=== PATIENT | female | born 1955 | race Caucasian/White ===

== ENCOUNTER 2018-12-05 18:02 | Inpatient (IN) ==
--- NOTE | 2018-12-05 18:41 | XRay Report ---
XR chest 1V portable CLINICAL HISTORY: hypoxia, pleural effusion COMPARISON STUDY: Chest CT October 31, 2018 and chest radiograph November 03, 2018. FINDINGS: Right internal jugular [id number] is in place. There is near complete opacification of t he left hemithorax which has significantly increased since exam of November 03, 2018. There may be min imal aeration of the left upper lobe. There is mild rightward shift of mediastinal structures. There is pulmonary vascular congestion within the right lung. A small right pleural effusion is suspected. There is mild right basilar opacity. IMPRESSION: 1. Near complete opacification of the left hemithorax which has developed since prior exam. Minimal a eration of the left upper lobe. The findings likely reflect a combination of a moderate to large left pleural effusion with left lung compressive atelectasis. 2. Small right pleural effusion. 3. Pulmonary vascular congestion. Electronically signed by: Reynaldo Covarrubias M.D. 12/05/2018 6:39 PM
[2018-12-05] MEDS ORDERED: SODIUM CHLORIDE 0.9% 500 ML IV SCH ×2 (19:00→20:00)
[2018-12-05 19:07] LABS: Basophils # (auto) 0.01 K/uL (0-0.2); Basophils % (auto) 0.1 %; Hematocrit (blood only) 25.5 % (37-47); Hemoglobin 7.5 g/dL (12.0-16.0); Immature Granulocytes # (auto) 0.31 K/uL (0.00-0.02); Immature Granulocytes % (auto) 2.3 %; Lymphocytes # (auto) 0.51 K/uL (1.2-3.4); Lymphocytes % (auto) 3.8 %; Mean Corpuscular Hgb Conc 29.4 g/dL (32-36); Mean Corpuscular Volume 85.3 fL (80-100); Mean Platelet Volume 8.7 fL (7.4-10.4); Monocytes # (auto) 0.48 K/uL (0.11-0.59); Monocytes % (auto) 3.6 %; Neutrophils # (auto) 12.08 K/uL (1.4-6.5); Neutrophils % (auto) 90.2 %; Nucleated RBC # (auto) 0.02 K/uL (0-0); Nucleated RBC % (auto) 0.1 %; Platelet Count 634 K/uL (130-400); RDW Coefficient of Variation 16.9 % (11.5-14.5); RDW Standard Deviation 52.1 fL (36.4-46.3); Red Blood Count 2.99 M/uL (4.2-5.4); White Blood Count 13.39 K/uL (4.8-10.8)
[2018-12-05] MEDS ORDERED: LIDOCAINE/EPINEPHRINE 1% 20 ML VIAL ONE (19:08)
[2018-12-05 19:19] LABS: INR 1.1 (0.9-1.1); Partial Thromboplastin Ratio 0.9; Partial Thromboplastin Time 23.2 Seconds (21.0-31.0); Prothrombin Time 11.3 Seconds (9.0-12.0)
[2018-12-05 19:28] LABS: RBC Morphology Unremarkable
[2018-12-05 19:34] LABS: Albumin Level 2.6 gm/dl (3.4-5.0); BUN Creatinine Ratio 17.8 (10-20); Creatinine Clr Calc Pharmacy 39.9 ml/min; Est GFR (African American) 33.9; Est GFR (Non-African American) 29.2; Magnesium 2.1 mg/dl (1.8-2.4); Potassium 4.3 mmol/L (3.5-5.1)
[2018-12-05 19:39] LABS: Albumin Globulin Ratio 0.5 (0.9-2); Bilirubin,Total 0.3 mg/dl (0.2-1); Globulin 4.8 gm/dl (2.5-4.0); Total Protein 7.4 gm/dl (6.4-8.2); Troponin I 0.039 ng/ml (0-0.045)
--- NOTE | 2018-12-05 20:09 | XRay Report ---
XR chest 1V portable CLINICAL HISTORY: Post procedure. COMPARISON STUDY: Chest radiograph December 05, 2018 at 6:14 PM. FINDINGS: Left lung aeration has markedly improved since chest radiograph performed earlier today fol lowing placement of a left pleural catheter. A left pleural effusion has decreased in size. There is a small residual pleural effusion. There is no pneumothorax. A small right pleural effusion is noted. A right internal jugular [id number] is in place. There is apparent right perihilar opacity. IMPRESSION: 1. Marked improvement in left lung aeration with significant decrease in size of a left pleural effus ion status post left pleural catheter placement. No pneumothorax. 2. Small right pleural effusion with right perihilar and right basilar opacity. 3. Pulmonary vascular congestion. Electronically signed by: Reynaldo Covarrubias M.D. 12/05/2018 8:07 PM
--- NOTE | 2018-12-05 20:19 | CT Scan Report ---
CT OF THE ABDOMEN AND PELVIS WITHOUT CONTRAST CLINICAL HISTORY: abd pain, ascites, constipation, known ca COMPARISON STUDY: CT of the abdomen and pelvis October 31, 2018. TECHNIQUE: Axial images of the abdomen and pelvis were obtained without IV contrast. Images were revi ewed in the axial, sagittal, and coronal planes. Automated exposure control was utilized for the maria esther dy. A dose lowering technique was utilized adhering to the principles of ALARA. FINDINGS: Imaged portions of the lower chest partially visualize a left pleural catheter within the a nterior aspect of the hemithorax. Although this projects over the epicardial fat, this is likely pleu ral in location. A moderate right pleural effusion is partially imaged. Apparent mild pleural nodular ity with a left hemithorax is noted. This is suboptimally assessed on this unenhanced exam. Evaluatio n of the abdomen and pelvis is suboptimal on this unenhanced exam. A right cardiophrenic angle lymph node measures 8 mm in short axis diameter. This is unchanged or slightly decreased since exam of 2018. A left para-aortic lymph node shown image 119 of [id number] has slightly decreased in size sinc e prior exam. This measures 8 mm in short axis diameter. Moderate abdominal and pelvic ascites has in creased since prior CT. There is apparent scalloping of the liver surface. Calcification likely a dee bus within the spleen are noted. There is no hydronephrosis. Unenhanced images of the adrenal glands and pancreas are normal. Peritoneal carcinomatosis with omental taking is similar to prior exam. No p neumatosis, free air or portal venous gas is present. Subcutaneous infiltration of the lower anterior abdominal wall has slightly increased. No evidence for a bowel obstruction. There is colonic diverti culosis without evidence for acute diverticulitis. No suspicious osseous lesion is noted. No biliary ductal dilatation status post cholecystectomy. IMPRESSION: 1. No significant change in peritoneal carcinomatosis since CT of October 31, 2018. Interval increase in moderate abdominal and pelvic ascites. 2. No bowel obstruction. 3. Partially imaged right pleural effusion, likely moderate in size. Left pleural catheter in place. 4. Subcutaneous infiltration of the lower anterior abdominal wall which is increased. This favors reyna ma although cellulitis could appear similar. No fluid collection to suggest abscess. 5. Slight decrease in mildly enlarged upper abdominal lymph nodes. Electronically signed by: Reynaldo Covarrubias M.D. 12/05/2018 8:18 PM
[2018-12-05] MEDS ORDERED: INSULIN GLARGINE SOLOSTAR 100 UNITS/ML 3 ML PEN SC SCH (21:56)
[2018-12-05] MEDS ORDERED: NITROGLYCERIN SL 0.4 MG/TAB TAB SL PRN (21:56)
[2018-12-05] MEDS ORDERED: ONDANSETRON 8 MG TABLET PO PRN (21:56)
[2018-12-05] MEDS ORDERED: ALUMINUM/MAGNESIUM SUSP 30 ML UDC PO PRN (21:56)
[2018-12-05] MEDS ORDERED: SODIUM CHLORIDE 0.9% 250 ML IV PRN (21:56)
[2018-12-05] MEDS ORDERED: PROCHLORPERAZINE MALEATE 10 MG TAB PO PRN (21:56)
[2018-12-05] MEDS ORDERED: ALBUTEROL HFA 8 GM INHALER INH PRN (21:56)
[2018-12-05] MEDS ORDERED: ACETAMINOPHEN 325 MG TAB PO STA (21:56)
[2018-12-05] MEDS ORDERED: ONDANSETRON INJ 2 MG/ML 2 ML VIAL IV PRN (21:56)
[2018-12-05] MEDS ORDERED: PHARMACY GLYCEMIC MGMT CONSULT PRN (22:32)
[2018-12-05] MEDS: clonazePAM 1 MG TAB PO SCH (22:48)
[2018-12-05] MEDS ORDERED: INSULIN HUMAN NPH SC ONE (23:00)
[2018-12-05] MEDS: PANTOprazole 40 MG in SYRINGE 0 ML IV SCH (23:29)
[2018-12-05] MEDS ORDERED: FUROSEMIDE 40 MG/4 ML VIAL IV SCH (23:30)
[2018-12-05] MEDS: INSULIN ASPART 100 UNITS/ML 3 ML PEN SC SCH (23:32)
[2018-12-06] MEDS: cefTRIAXone SODIUM 2,000 MG in DEXTROSE 5% 50 ML IV SCH ×2 (01:14→22:35)
--- NOTE | 2018-12-06 02:24 | Emergency Department Note ---
Entered by Wesley Menjivar acting as a scribe for History of Present Illness General Chief complaint: Shortness of Breath/Dyspnea Stated complaint: SOB, FLUID RETENTION Time Seen by Provider: 12/05/18 18:03 Source: patient and EMS History of Present Illness Onset (ago): day(s) (today) Location: chest Pain Consistency: + constant Quality: + other (SOB) Associated symptoms: + other (Positive for chest pain and vomiting. Negative for cough, fever, and difficulty with her bowels.) The patient is a 63 year old female who presents to the emergency department with complaints of constant SOB beginning today. The patient states that she began to feel SOB today while she was at home. She notes that she wears 6L of oxygen at home, but she reports that the oxygen did not help her as much today as it usually does. The patient states that she feels better since EMS increased her oxygen to 10L. Per EMS, the patients oxygen saturation was 85% on her typical 6L. He notes that the patients oxygen saturation increased to 95 % on 10L. Per EMS and family, patient went to her oncology appointment today to begin chemotherapy and they found her weight to be increased by 10 pounds so they opted to not start chemotherapy but send her for labs and a chest x-ray. Upon reviewing these results, they called her and immediately sent her to the emergency room. The patient also complains of occasional chest pain and an episode of vomiting earlier this week. She denies any vomiting today. She also denies any cough, fever, and difficulty with her bowels. She reports that she has had fluid around her lungs since August,. Patient also complains of generalized abdominal pain. Per family at the oncologist office she reported that her abdominal pain was a 10 out of 10, here she reports it is a 6 out of 10 and states she feels distended. Family states she has had issues with constipation recently issues been given pain medication and I thought maybe that was perhaps the cause of her abdominal pain. Home Medications Home Medications Medication Instructions Recorded Confirmed Type aspirin 81 mg PO QAM 10/25/18 12/05/18 History atenolol 100 mg PO QAM 10/25/18 12/05/18 History clonazepam 1 mg PO HS 10/25/18 12/05/18 History metformin 500 mg PO QAM 10/25/18 12/05/18 History pantoprazole 40 mg PO QAM 10/25/18 12/05/18 History albuterol sulfate [Proventil HFA] 2 puff INHALATION Q4H PRN 12/05/18 12/05/18 History atorvastatin 80 mg PO DAILY 12/05/18 12/05/18 History citalopram 40 mg PO DAILY 12/05/18 12/05/18 History dexamethasone 4 mg PO DIRECTED 12/05/18 12/05/18 History furosemide 40 mg PO DAILY 12/05/18 12/05/18 History insulin aspart U-100 1 dose CONTINUOUS SUBCUTANEOUS 12/05/18 12/05/18 History INFUSION UD ondansetron HCl 8 mg PO Q8H PRN 12/05/18 12/05/18 History prochlorperazine maleate 10 mg PO Q6H PRN 12/05/18 12/05/18 History [Compazine] Allergies Allergy/AdvReac Type Severity Reaction Status Date / Time Sulfa (Sulfonamide Allergy Mild HIVES Verified 10/25/18 18:31 Antibiotics) sulfamethoxazole Allergy Mild HIVES Verified 10/25/18 18:31 trimethoprim Allergy Mild HIVES Verified 10/25/18 18:31 morphine AdvReac Severe nausea Verified 10/25/18 18:31 Cephalosporins AdvReac Mild NAUSEA Verified 10/25/18 18:31 bupropion AdvReac Unknown DELIRIUM Verified 10/29/18 08:13 metronidazole AdvReac Unknown GI UPSET Verified 10/25/18 18:31 nortriptyline AdvReac Unknown DELIRIUM Verified 10/29/18 08:13 Quinolones AdvReac Unknown VOMITING Verified 10/25/18 18:31 FROM [facility]RO INTAKE Past Med/Surg History Social History Current Living Situation: Family Other Information That Helps Us Care for You: No Feels Safe at Home: Yes Smoking Status: Former smoker Do You Dip or Chew Tobacco: No Smoking End Date: quit about age 38 Hx Alcohol Use: No Hx Substance Use: No Beliefs That Will Affect Care: None Preferred Language: Indonesian Communication Ability: Effective Clinical Transplant Coordinator Required: No Review of Systems See HPI for pertinent positives & negatives. and A total of 10 systems reviewed and were otherwise negative Physical Exam Vital Signs Vital Signs - 24 hr 12/05/18 18:07 12/05/18 18:30 02/13/19 18:45 Temperature 36.8 C Temperature Source Oral Sepsis Recent Fever Within 48 Hours No Sepsis New/Unexplained Change in Mental Status No Sepsis Action Taken by Nursing No Action Required Pulse Rate 112 H 111 H 115 H Pulse Rate [Apical] Pulse Rhythm Irregular Pulse Rhythm [Apical] Pulse Strength Pulse Strength [Apical] Respiratory Rate 28 H 31 H Respiratory Effort / Characteristics Respiratory Depth Respiratory Pattern Blood Pressure 132/82 166/113 H Blood Pressure [Right Arm] Blood Pressure Mean 98 130 Blood Pressure Mean [Right Arm] Blood Pressure Position Blood Pressure Position [Right Arm] Pulse Oximetry 96 94 97 Oxygen Delivery Method Non-rebreather Non-rebreather Oxygen Flow Rate 12 12 12/05/18 19:01 12/05/18 19:02 12/05/18 19:13 Temperature Temperature Source Sepsis Recent Fever Within 48 Hours Sepsis New/Unexplained Change in Mental Status Sepsis Action Taken by Nursing Pulse Rate 108 H 105 H 108 H Pulse Rate [Apical] Pulse Rhythm Pulse Rhythm [Apical] Pulse Strength Pulse Strength [Apical] Respiratory Rate 30 H 32 H Respiratory Effort / Characteristics Respiratory Depth Respiratory Pattern Blood Pressure 132/88 159/89 H Blood Pressure [Right Arm] Blood Pressure Mean 102 112 Blood Pressure Mean [Right Arm] Blood Pressure Position Blood Pressure Position [Right Arm] Pulse Oximetry 98 97 93 Oxygen Delivery Method Non-rebreather Oxygen Flow Rate 12 12/05/18 19:15 12/05/18 19:30 12/05/18 19:45 Temperature Temperature Source Sepsis Recent Fever Within 48 Hours Sepsis New/Unexplained Change in Mental Status Sepsis Action Taken by Nursing Pulse Rate 118 H 124 H 112 H Pulse Rate [Apical] Pulse Rhythm Pulse Rhythm [Apical] Pulse Strength Pulse Strength [Apical] Respiratory Rate Respiratory Effort / Characteristics Respiratory Depth Respiratory Pattern Blood Pressure Blood Pressure [Right Arm] Blood Pressure Mean Blood Pressure Mean [Right Arm] Blood Pressure Position Blood Pressure Position [Right Arm] Pulse Oximetry 95 94 99 Oxygen Delivery Method Oxygen Flow Rate 12/05/18 19:47 12/05/18 19:48 12/05/18 20:12 Temperature Temperature Source Sepsis Recent Fever Within 48 Hours Sepsis New/Unexplained Change in Mental Status Sepsis Action Taken by Nursing Pulse Rate 116 H 113 H Pulse Rate [Apical] 120 H Pulse Rhythm Pulse Rhythm [Apical] Pulse Strength Pulse Strength [Apical] Respiratory Rate 30 H Respiratory Effort / Characteristics Respiratory Depth Respiratory Pattern Blood Pressure 129/83 Blood Pressure [Right Arm] 129/83 Blood Pressure Mean 98 Blood Pressure Mean [Right Arm] 98 Blood Pressure Position Blood Pressure Position [Right Arm] Pulse Oximetry 96 96 Oxygen Delivery Method Oxymask Oxymask Oxygen Flow Rate 10 10 12/05/18 20:13 12/05/18 20:15 12/05/18 20:17 Temperature Temperature Source Sepsis Recent Fever Within 48 Hours Sepsis New/Unexplained Change in Mental Status Sepsis Action Taken by Nursing Pulse Rate 114 H 109 H Pulse Rate [Apical] 109 H Pulse Rhythm Pulse Rhythm [Apical] Pulse Strength Pulse Strength [Apical] Respiratory Rate 32 H Respiratory Effort / Characteristics Respiratory Depth Respiratory Pattern Blood Pressure 99/92 L 111/72 Blood Pressure [Right Arm] 111/72 Blood Pressure Mean 94 85 Blood Pressure Mean [Right Arm] 85 Blood Pressure Position Blood Pressure Position [Right Arm] Pulse Oximetry 89 L 94 Oxygen Delivery Method Oxymask Oxygen Flow Rate 9 12/05/18 20:30 12/05/18 20:45 12/05/18 20:46 Temperature Temperature Source Sepsis Recent Fever Within 48 Hours Sepsis New/Unexplained Change in Mental Status Sepsis Action Taken by Nursing Pulse Rate 106 H 113 H 107 H Pulse Rate [Apical] Pulse Rhythm Pulse Rhythm [Apical] Pulse Strength Pulse Strength [Apical] Respiratory Rate Respiratory Effort / Characteristics Respiratory Depth Respiratory Pattern Blood Pressure 140/72 Blood Pressure [Right Arm] Blood Pressure Mean 94 Blood Pressure Mean [Right Arm] Blood Pressure Position Blood Pressure Position [Right Arm] Pulse Oximetry 93 90 95 Oxygen Delivery Method Oxygen Flow Rate 12/05/18 21:00 12/05/18 21:01 12/05/18 21:15 Temperature 36.7 C 36.5 C Temperature Source Oral Oral Sepsis Recent Fever Within 48 Hours Sepsis New/Unexplained Change in Mental Status Sepsis Action Taken by Nursing Pulse Rate 102 H 102 H 99 H Pulse Rate [Apical] Pulse Rhythm Pulse Rhythm [Apical] Pulse Strength Pulse Strength [Apical] Respiratory Rate 29 H 29 H Respiratory Effort / Characteristics Respiratory Depth Respiratory Pattern Blood Pressure 122/71 118/74 Blood Pressure [Right Arm] Blood Pressure Mean 88 88 Blood Pressure Mean [Right Arm] Blood Pressure Position Sitting Blood Pressure Position [Right Arm] Pulse Oximetry 96 96 99 Oxygen Delivery Method Oxygen Flow Rate 9 12/05/18 21:16 12/05/18 21:17 12/05/18 21:30 Temperature 36.5 C Temperature Source Oral Sepsis Recent Fever Within 48 Hours Sepsis New/Unexplained Change in Mental Status Sepsis Action Taken by Nursing Pulse Rate 102 H 93 H Pulse Rate [Apical] Pulse Rhythm Pulse Rhythm [Apical] Pulse Strength Pulse Strength [Apical] Respiratory Rate 24 Respiratory Effort / Characteristics Respiratory Depth Respiratory Pattern Blood Pressure 118/74 114/56 L Blood Pressure [Right Arm] Blood Pressure Mean 88 75 Blood Pressure Mean [Right Arm] Blood Pressure Position Lying Blood Pressure Position [Right Arm] Pulse Oximetry 96 98 Oxygen Delivery Method Oxymask Oxygen Flow Rate 9 12/05/18 21:43 12/05/18 21:45 12/05/18 22:00 Temperature 36.9 C Temperature Source Oral Sepsis Recent Fever Within 48 Hours Sepsis New/Unexplained Change in Mental Status Sepsis Action Taken by Nursing Pulse Rate 94 H 92 H 92 H Pulse Rate [Apical] Pulse Rhythm Pulse Rhythm [Apical] Pulse Strength Pulse Strength [Apical] Respiratory Rate 26 H 22 9 L Respiratory Effort / Characteristics Accessory Muscle Use Short of Breath SOB on Exertion Respiratory Depth Respiratory Pattern Tachypnea Blood Pressure 129/81 Blood Pressure [Right Arm] Blood Pressure Mean 97 Blood Pressure Mean [Right Arm] Blood Pressure Position Lying Blood Pressure Position [Right Arm] Pulse Oximetry 97 Oxygen Delivery Method Oxymask Oxygen Flow Rate 6 12/05/18 22:15 12/05/18 22:30 12/05/18 22:45 Temperature 36.9 C Temperature Source Oral Sepsis Recent Fever Within 48 Hours Sepsis New/Unexplained Change in Mental Status Sepsis Action Taken by Nursing Pulse Rate 90 91 H 91 H Pulse Rate [Apical] Pulse Rhythm Pulse Rhythm [Apical] Pulse Strength Pulse Strength [Apical] Respiratory Rate 27 H 23 21 Respiratory Effort / Characteristics Respiratory Depth Respiratory Pattern Blood Pressure 119/77 Blood Pressure [Right Arm] Blood Pressure Mean 91 Blood Pressure Mean [Right Arm] Blood Pressure Position Blood Pressure Position [Right Arm] Pulse Oximetry 97 Oxygen Delivery Method Oxygen Flow Rate 12/05/18 23:00 12/05/18 23:07 12/05/18 23:15 Temperature 37.2 C 37.2 C Temperature Source Oral Oral Sepsis Recent Fever Within 48 Hours Sepsis New/Unexplained Change in Mental Status Sepsis Action Taken by Nursing Pulse Rate 88 90 Pulse Rate [Apical] 88 Pulse Rhythm Regular Pulse Rhythm [Apical] Regular Pulse Strength Normal Pulse Strength [Apical] Normal Respiratory Rate 23 16 25 H Respiratory Effort / Characteristics Non-Labored Respiratory Depth Normal Respiratory Pattern Regular Blood Pressure 123/78 Blood Pressure [Right Arm] 123/78 Blood Pressure Mean 93 Blood Pressure Mean [Right Arm] 93 Blood Pressure Position Lying Blood Pressure Position [Right Arm] Lying Pulse Oximetry 96 97 Oxygen Delivery Method Oxygen Flow Rate 12/05/18 23:30 12/05/18 23:45 12/06/18 00:00 Temperature 36.9 C Temperature Source Oral Sepsis Recent Fever Within 48 Hours Sepsis New/Unexplained Change in Mental Status Sepsis Action Taken by Nursing Pulse Rate 89 88 88 Pulse Rate [Apical] Pulse Rhythm Pulse Rhythm [Apical] Pulse Strength Pulse Strength [Apical] Respiratory Rate 28 H 25 H 24 Respiratory Effort / Characteristics Respiratory Depth Respiratory Pattern Blood Pressure 126/78 Blood Pressure [Right Arm] Blood Pressure Mean 94 Blood Pressure Mean [Right Arm] Blood Pressure Position Blood Pressure Position [Right Arm] Pulse Oximetry 99 Oxygen Delivery Method Oxygen Flow Rate 6 12/06/18 01:07 12/06/18 01:50 Temperature 37.2 C Temperature Source Oral Sepsis Recent Fever Within 48 Hours Sepsis New/Unexplained Change in Mental Status Sepsis Action Taken by Nursing Pulse Rate 82 87 Pulse Rate [Apical] Pulse Rhythm Pulse Rhythm [Apical] Pulse Strength Pulse Strength [Apical] Respiratory Rate 18 20 Respiratory Effort / Characteristics Respiratory Depth Respiratory Pattern Blood Pressure 122/79 Blood Pressure [Right Arm] Blood Pressure Mean 93 Blood Pressure Mean [Right Arm] Blood Pressure Position Lying Blood Pressure Position [Right Arm] Pulse Oximetry 100 100 Oxygen Delivery Method Oxygen Flow Rate 6 6 GENERAL: alert, ill appearing, well nourished, no distress, non-toxic, obese EYE EXAM: normal conjunctiva, PERRL and EOM's grossly intact OROPHARYNX: no exudate, no erythema, lips, buccal mucosa, and tongue normal and mucous membranes are moist NECK: supple, no nuchal rigidity, no adenopathy, non-tender LUNGS: Normal chest wall mechanics. Markedly diminished breath sounds on the left. HEART: no murmurs, S1 normal and S2 normal, tachycardic. ABDOMEN: abdomen soft, non-tender, normo-active bowel sounds, no masses, no rebound or guarding, distended abdomen. BACK: Back is symmetrical on inspection and there is no deformity, no midline tenderness, no CVA tenderness. SKIN: no rashes and no bruising UPPER EXTREMITIES: upper extremities are grossly normal. LOWER EXTREMITIES: No pitting edema. NEURO EXAM: Normal sensorium, cranial nerves II-XII grossly intact, normal speech, no gross weakness of arms, no gross weakness of legs. Poor recall regarding health history. Course 1805: Past medical records reviewed. The patient was evaluated in room B6, and a complete history and physical examination were performed. I reviewed the patient's outpatient records from the [facility] oncology office. I also reviewed her admission in October in the EMR. 1818: I reevaluated and updated the patient. Her oxygen was increased to 12L to hold her at 95-97% oxygen saturation. 1829: I rechecked the patient and spoke to her family twice. I discussed with them about the patient potentially having a thoracentesis procedure done as well as her code status. I also discussed the possibility of a blood transfusion. 184: Upon reevaluation, the patient is stable. I discussed the results and treatment plan with the patient. She verbalizes understanding and agreement. I discussed the patient's case with Sumaya Merino PA-C, [facility]. The patient will be evaluated for further management and care. 184: I reviewed the patient's case with Dr. Reyes - Thoracic Surgery, [facility] [place]. He will come down to evaluate the patient and perform a thoracentesis. 1848: I reevaluated the patient. 1907: The patient was moved to room B1. Dr. Reyes is at bedside. 1910: I rechecked the patient. She is tachycardic but holding her oxygen saturation at 12L. 1921: Dr. Reyes performed a thoracentesis on the patient. 2010: I rechecked the patient. Consultations Consultation #1: I reviewed the patient's case with Sumaya Merino PA-C, [facility]. She will evaluate the patient for further management. Time: 18:45 Consultation #2: I reviewed the patient's case with Dr. Reyes - Thoracic Surgery [facility] [place]. He will come down to evaluate the patient and perform a thoracentesis. Time: 18:46 Administered Medications Clonazepam (Klonopin) 1 mg PO HS ANTONIO Stop: 01/04/19 22:44 Last Admin: 12/05/18 22:48 Dose: 1 mg Ceftriaxone Sodium 2,000 mg/ (Dextrose) 70 mls @ 100 mls/hr IV Q24H [facility]; Protocol Stop: 12/15/18 22:59 Last Infusion: 12/06/18 01:48 Dose: 0 mls/hr Admin: 12/06/18 01:14 Dose: 100 mls/hr Pantoprazole Sodium 40 mg/ (Syringe) 10 mls @ 5 mls/min IV BID ANTONIO Stop: 01/04/19 22:44 Last Admin: 12/05/18 23:29 Dose: 5 mls/min Insulin Aspart (Novolog Flexpen) 0 units SC ACHS ANTONIO Stop: 01/04/19 23:14 Last Admin: 12/05/18 23:32 Dose: 12 units Discontinued Medications Acetaminophen (Tylenol) 650 mg PO NOW STA Stop: 12/05/18 21:57 Last Admin: 12/05/18 22:48 Dose: 650 mg Furosemide (Lasix) 20 mg IV TODAY@2330 ANTONIO Stop: 12/06/18 01:30 Last Admin: 12/06/18 01:10 Dose: 20 mg Sodium Chloride (Nss) 500 mls @ 80 mls/hr IV .Q6H15M ANTONIO Stop: 01/04/19 18:59 Last Admin: 12/05/18 20:16 Dose: Not Given Sodium Chloride (Nss) 500 mls @ 80 mls/hr IV .Q6H15M ANTONIO Stop: 01/04/19 19:59 Last Infusion: 12/05/18 22:44 Dose: 0 mls/hr Admin: 12/05/18 20:15 Dose: 80 mls/hr Insulin Human NPH (Novolin N Nph) 20 units SC ONE ONE Stop: 12/05/18 23:01 Last Admin: 12/05/18 23:30 Dose: 20 units Lidocaine/Epinephrine (Xylocaine/Epinephrine 1%) Confirm Administered Dose 20 ml .ROUTE .STK-MED ONE Stop: 12/05/18 19:09 Last Admin: 12/05/18 19:50 Dose: 20 ml Medical Decision Making Differential Diagnosis Differential diagnosis: Etiologies such as infections, reactive airway disease, COPD, pneumonia, pleural effusion, pulmonary edema, ARDS, pneumothorax, CHF, cardiac ischemia, cardiac tamponade, dysrhythmia, anemia, pulmonary embolism, musculoskeletal, gastrointestinal process, as well as others were entertained. Medical Records Attestation: I reviewed the patient's medical records. Home Medications Current Medication List: was personally reviewed by me Laboratory Data Attestation: I reviewed the patient's lab results. Result diagrams: 12/05/18 18:51 12/05/18 18:51 Lab Results 12/05/18 12/05/18 12/05/18 Range/Units 18:51 18:51 18:51 WBC 13.39 H (4.8-10.8) K/uL RBC 2.99 L (4.2-5.4) M/uL Hgb 7.5 L (12.0-16.0) g/dL Hct 25.5 L (37-47) % MCV 85.3 (80-100) fL MCH 25.1 (25-34) pg MCHC 29.4 L (32-36) g/dL RDW Std Deviation 52.1 H (36.4-46.3) fL RDW Coeff of Sheyla 16.9 H (11.5-14.5) % Plt Count 634 H (130-400) K/uL MPV 8.7 (7.4-10.4) fL Immature Gran % (Auto) 2.3 % Neut % (Auto) 90.2 % Lymph % (Auto) 3.8 % Preble % (Auto) 3.6 % Eos % (Auto) 0.0 % Baso % (Auto) 0.1 % Immature Gran # (Auto) 0.31 H (0.00-0.02) K/uL Neut # (Auto) 12.08 H (1.4-6.5) K/uL Lymph # (Auto) 0.51 L (1.2-3.4) K/uL Preble # (Auto) 0.48 (0.11-0.59) K/uL Eos # (Auto) 0.00 (0-0.5) K/uL Baso # (Auto) 0.01 (0-0.2) K/uL Absolute Nucleated RBC 0.02 H (0-0) K/uL Nucleated RBC % (auto) 0.1 % RBC Morphology Unremarkable PT (9.0-12.0) Seconds INR (0.9-1.1) APTT (21.0-31.0) Seconds PTT Ratio Sodium 136 (136-145) mmol/L Potassium 4.3 (3.5-5.1) mmol/L Chloride 93 L (98-107) mmol/L Carbon Dioxide 39 H (21-32) mmol/L Anion Gap 5.0 (3-11) BUN 32 H (7-18) mg/dl Creatinine 1.80 H (0.6-1.2) mg/dl Est Cr Clr Drug Dosing 39.9 ml/min Est GFR ( Amer) 33.9 Est GFR (Non-Af Amer) 29.2 BUN/Creatinine Ratio 17.8 (10-20) Glucose 287 H (70-99) mg/dl POC Glucose (70-99) Calcium 9.0 (8.5-10.1) mg/dl Magnesium 2.1 (1.8-2.4) mg/dl Total Bilirubin 0.3 (0.2-1) mg/dl AST 10 L (15-37) U/L ALT 16 (12-78) U/L Alkaline Phosphatase 135 H (45-117) U/L Troponin I 0.039 (0-0.045) ng/ml Total Protein 7.4 (6.4-8.2) gm/dl Albumin 2.6 L (3.4-5.0) gm/dl Globulin 4.8 H (2.5-4.0) gm/dl Albumin/Globulin Ratio 0.5 L (0.9-2) Blood Type AB Positive Antibody Screen NEGATIVE Crossmatch See Detail 12/05/18 12/05/18 Range/Units 18:51 21:58 WBC (4.8-10.8) K/uL RBC (4.2-5.4) M/uL Hgb (12.0-16.0) g/dL Hct (37-47) % MCV (80-100) fL MCH (25-34) pg MCHC (32-36) g/dL RDW Std Deviation (36.4-46.3) fL RDW Coeff of Sheyla (11.5-14.5) % Plt Count (130-400) K/uL MPV (7.4-10.4) fL Immature Gran % (Auto) % Neut % (Auto) % Lymph % (Auto) % Preble % (Auto) % Eos % (Auto) % Baso % (Auto) % Immature Gran # (Auto) (0.00-0.02) K/uL Neut # (Auto) (1.4-6.5) K/uL Lymph # (Auto) (1.2-3.4) K/uL Preble # (Auto) (0.11-0.59) K/uL Eos # (Auto) (0-0.5) K/uL Baso # (Auto) (0-0.2) K/uL Absolute Nucleated RBC (0-0) K/uL Nucleated RBC % (auto) % RBC Morphology PT 11.3 (9.0-12.0) Seconds INR 1.1 (0.9-1.1) APTT 23.2 (21.0-31.0) Seconds PTT Ratio 0.9 Sodium (136-145) mmol/L Potassium (3.5-5.1) mmol/L Chloride (98-107) mmol/L Carbon Dioxide (21-32) mmol/L Anion Gap (3-11) BUN (7-18) mg/dl Creatinine (0.6-1.2) mg/dl Est Cr Clr Drug Dosing ml/min Est GFR ( Amer) Est GFR (Non-Af Amer) BUN/Creatinine Ratio (10-20) Glucose (70-99) mg/dl POC Glucose 303 H (70-99) Calcium (8.5-10.1) mg/dl Magnesium (1.8-2.4) mg/dl Total Bilirubin (0.2-1) mg/dl AST (15-37) U/L ALT (12-78) U/L Alkaline Phosphatase (45-117) U/L Troponin I (0-0.045) ng/ml Total Protein (6.4-8.2) gm/dl Albumin (3.4-5.0) gm/dl Globulin (2.5-4.0) gm/dl Albumin/Globulin Ratio (0.9-2) Blood Type Antibody Screen Crossmatch Imaging Data Radiologist's Impression: Radiology results as stated below per my review and the radiologist's interpretation: XR chest 1V portable FINDINGS: Right internal jugular Qqlisu-o-Pade is in place. There is near complete opacification of the left hemithorax which has significantly increased since exam of November 03, 2018. There may be minimal aeration of the left upper lobe. There is mild rightward shift of mediastinal structures. There is pulmonary vascular congestion within the right lung. A small right pleural effusion is suspected. There is mild right basilar opacity. IMPRESSION: 1. Near complete opacification of the left hemithorax which has developed since prior exam. Minimal aeration of the left upper lobe. The findings likely reflect a combination of a moderate to large left pleural effusion with left lung compressive atelectasis. 2. Small right pleural effusion. 3. Pulmonary vascular congestion. CT OF THE ABDOMEN AND PELVIS WITHOUT CONTRAST FINDINGS: Imaged portions of the lower chest partially visualize a left pleural catheter within the anterior aspect of the hemithorax. Although this projects over the epicardial fat, this is likely pleural in location. A moderate right pleural effusion is partially imaged. Apparent mild pleural nodularity with a left hemithorax is noted. This is suboptimally assessed on this unenhanced exam. Evaluation of the abdomen and pelvis is suboptimal on this unenhanced exam. A right cardiophrenic angle lymph node measures 8 mm in short axis diameter. This is unchanged or slightly decreased since exam of October 31, 2018. A left para-aortic lymph node shown image [id number] of [id number] has slightly decreased in size since prior exam. This measures 8 mm in short axis diameter. Moderate abdominal and pelvic ascites has increased since prior CT. There is apparent scalloping of the liver surface. Calcification likely a limbus within the spleen are noted. There is no hydronephrosis. Unenhanced images of the adrenal glands and pancreas are normal. Peritoneal carcinomatosis with omental taking is similar to prior exam. No pneumatosis, free air or portal venous gas is present. Subcutaneous infiltration of the lower anterior abdominal wall has slightly increased. No evidence for a bowel obstruction. There is colonic diverticulosis without evidence for acute diverticulitis. No suspicious osseous lesion is noted. No biliary ductal dilatation status post cholecystectomy. IMPRESSION: 1. No significant change in peritoneal carcinomatosis since CT of October 31, 2018. Interval increase in moderate abdominal and pelvic ascites. 2. No bowel obstruction. 3. Partially imaged right pleural effusion, likely moderate in size. Left pleural catheter in place. 4. Subcutaneous infiltration of the lower anterior abdominal wall which is increased. This favors edema although cellulitis could appear similar. No fluid collection to suggest abscess. 5. Slight decrease in mildly enlarged upper abdominal lymph nodes. Electronically signed by: Reynaldo Covarrubias M.D. 12/05/2018 8:18 PM XR chest 1V portable FINDINGS: Left lung aeration has markedly improved since chest radiograph performed earlier today following placement of a left pleural catheter. A left pleural effusion has decreased in size. There is a small residual pleural effusion. There is no pneumothorax. A small right pleural effusion is noted. A right internal jugular [id number] is in place. There is apparent right perihilar opacity. IMPRESSION: 1. Marked improvement in left lung aeration with significant decrease in size of a left pleural effusion status post left pleural catheter placement. No pneumothorax. 2. Small right pleural effusion with right perihilar and right basilar opacity. 3. Pulmonary vascular congestion. Electronically signed by: Reynaldo Covarrubias M.D. 12/05/2018 8:07 PM ECG Data Attestation: I personally reviewed and interpreted this ECG as follows: Indication: SOB/dyspnea Rate (beats per minute): 111 Rhythm: sinus tachycardia Findings: no ST elevation (no obvious ST elevation) Additional Comments: Normal axis, normal intervals, baseline artifact, and poor quality tracing. Blood Pressure Blood Pressure Findings: Normal blood pressure Blood Pressure Disposition: did not require urgent referral MDM Narrative Patient arrived here significantly ill-appearing requiring increased oxygen to try and maintain stable oxygen saturations compared to her home O2. Patient appears anxious and short of breath, and is slightly tachypneic on arrival here also. Patient afebrile, blood pressure stable, however she is also tachycardic. Given concerning history reported by EMS, the patient, and then family on their arrival, we immediately attempted to review recent outpatient records. Patient's oncology office did fax over their outpatient labs and imaging today which were concerning for a large left pleural effusion with tension physiology due to mediastinal shift and the worsening outpatient labs noted compared to prior including decreased H&H and worsening kidney function. Patient kept in a seated position as any attempts to position supine result in markedly increased trouble breathing. Upon review of outpatient chest x-ray and a repeat chest x-ray here, I discussed the case with the hospitalist admitting team and call Dr. Reyes. Patient with previously diagnosed malignant pleural effusion now with a significant recurrence in the setting of ongoing cancer treatment. Concern for likely need for drainage catheter as she is at a high rate of recurrence. I continue to check the patient multiple times and was present during Dr. Candelario procedure in case patient required additional airway management. Patient remained tachycardic, and oxygen remained stable in the low to mid 90s on 13 L/min via facemask. Patient with some improvement on follow-up chest x-ray following placement of Pleurx catheter. Patient then sent for CT the abdomen pelvis due to reported pain. No other acute GI pathology noted. I did discuss possible transfusion with the patient at bedside, and they were in agreement if needed. Transfusion consent ultimately signed by Dr. Perdue after he performed a bedside evaluation also. Patient high risk for decompensation. I did discuss with the patient and family CODE STATUS. They agree that at this point in time patient is to be a full code. Likely patient's anemia and increased creatinine also contributing to her shortness of breath. No evident evidence of acute cardiac etiology. Discussed with patient and family risk of pulmonary edema upon reinflation of her lung also. Impression & Plan Pleural effusion, left, Abdominal pain, Dyspnea, Ascites, Hypoxia, Chronic kidney disease, Endometrial cancer, Anemia Critical Care Time I have personally spent greater than 60 minutes of critical care time in the direct management of this patient. This includes bedside care, interpretation of diagnostic studies, and testing, discussion with consultants, patient, and family members, and other required patient management activities. This 60 minutes is in excess of all separately billable procedures. Critical Care Time: Yes Total Critical Care Time: 60 Discharge Plan Visit Data *Final* Discharge Date/Time: 12/05/18 21:17 Chief Complaint: Shortness of Breath/Dyspnea Stated Complaint: SOB, FLUID RETENTION ED Provider: Kaylene Barbosa Discharge Problem: Pleural effusion, left, Abdominal pain, Dyspnea, Ascites, Hypoxia, Chronic kidney disease, Endometrial cancer, Anemia Patient Disposition: Admitted As Inpatient Condition: Serious Discharge Instructions Interventions: ED Discharge Assessment Last Done: 12/05/18 21:17 The scribe's documentation has been prepared under my direction and personally reviewed by me in its entirety. I confirm that the note above accurately reflects all work, treatment, procedures, and medical decision making performed by me.
--- NOTE | 2018-12-06 03:57 | History and Physical Report ---
`DATE OF ADMISSION: 12/05/2018 CHIEF COMPLAINT: Shortness of breath. HISTORY OF PRESENT ILLNESS: This is a 63-year-old female with past medical history significant for chronic respiratory failure secondary to COPD on home oxygen, currently on 6 L; obstructive sleep apnea, CPAP noncompliance; hypertension; hyperlipidemia; mood disorder; diabetes on insulin pump; chronic anemia, baseline hemoglobin around 10; endometrial cancer status post surgery; remote tobacco abuse, was sent in from the hem/onc office because of shortness of breath and large pleural effusion. The patient has history of endometrial carcinoma status post robotic-assisted laparoscopic hysterectomy and bilateral salpingo-oophorectomy on 07/11/2014 . Then in 10/2018 she was admitted for shortness of breath and respiratory failure and found to have large bilateral pleural effusions and ascites which were drained and cytology came back as metastatic adenocarcinoma . Gi saw the patient and because mostly its malignant ascites there is no role of diuretics. A port was placed. Discharged on oxygen 6lts. Follows with heme/oncology and on pallative chemotherapy with Paclitaxel/Carboplatin . She had 1 dose of chemotherapy and was going to have second palliative chemo today. She was feeling poor and weight gain of 10 pounds and hem/onc tried to get paracentesis done and also x-ray was done, which showed complete opacification of the left lung, so she was sent to ER. In the ER, currently CT surgery did a PleurX catheter and status post drainage of the left pleural effusion and she is feeling better. Intially was placed on NRB mask, currently placed on venti mask and saturating ok. She says she is feeling much better. She was somewhat tachycardic. She says she has on and off headaches and chest pain and cough But none now. Complained of some abdominal pain, on and off, nauseous last night. No runny nose, on and off with a dry cough, no phlegm, low grade fever last night. Appetite is very poor, ambulatory status is very poor at home. She lives with her daughters .Not walking much. Normal bowel and bladder movements. No blood in the stools, no black stools.Daughters likes to get updates on patient status. ALLERGIES: SULFA ANTIBIOTICS, MORPHINE, CEPHALOSPORINS, BUPROPION, METRONIDAZOLE, NORTRIPTYLINE, QUINOLONES. PAST MEDICAL HISTORY: As mentioned above. PAST SURGICAL HISTORY: , colonoscopy, hysteroscopy with endometrial ablation, L spine paravertebral facet injection, robotic laparoscopic hysterectomy with one of tubes and ovaries tubal ligation, cataract removal, appendectomy, sacroiliac joint injection, wrist arthroscopy bilateral. MEDICATIONS: Currently, the patient is on Decadron on days of chemo, Zofran 8 mg p.o. t.i.d. p.r.n., Compazine 10 mg p.o. q. 6 hours p.r.n., Lasix 40 mg p.o. daily, metformin 500 mg p.o. daily with breakfast, Lipitor 80 mg p.o. daily, albuterol 2 puffs every 4 hours p.r.n., insulin pump, Klonopin 1 mg p.o. at bedtime, aspirin 81 mg p.o. daily, atenolol 100 mg p.o. daily, Protonix 40 mg p.o. daily, citalopram 40 mg daily. FAMILY HISTORY: Significant for mother has arthritis, asthma, diabetes, glaucoma, gastrointestinal disorder, heart disorder, hypertension. Father has lung disorder, lung cancer. SOCIAL HISTORY: . Lives with her daughters now. Quit smoking in 2001. No alcohol use. No drug use. REVIEW OF SYMPTOMS: As per HPI. Rest of the symptoms negative. PHYSICAL EXAMINATION: GENERAL: The patient is morbidly obese, not in acute distress. VITAL SIGNS: Temperature 36.8, pulse 109, respiratory rate in 30s, blood pressure 111/72, oxygen 94% OxyMask on 9 L. HEENT: No pallor, no icterus. Pupils equal, round, and reactive to light. NECK: No JVD, no neck masses, no carotid bruits. CARDIOVASCULAR: S1, S2 heard. Tachycardia. No murmurs. RESPIRATORY: Normal AP diameter. No accessory muscle use. No wheezing, no crackles. bibasilar crackles present ABDOMEN: Soft, bowel sounds present. Mild epigastric abdominal discomfort. No guarding, no rigidity. CENTRAL NERVOUS SYSTEM: Cranial nerves II through XII grossly intact. Nonfocal. EXTREMITIES: No edema, no erythema. LABS: WBC 13.3, hemoglobin 7.5, hematocrit 25.5, platelets 634. PT 11.3, INR 1.18, APTT 23.2. Sodium 136, potassium 4.3, chloride 93, bicarbonate 39, BUN 32, creatinine 1.8, glucose 287, calcium 9, magnesium 2.1, total bilirubin 0.3, AST 10, ALT 16, alkaline phosphatase 135. Troponin I less than 0.039. Chest x-ray: Initial chest x-ray is showing near complete opacities in the left hemothorax . Moderate right pleural effusion, pulmonary vascular congestion. Chest x-ray post Pleurx catheter marked improvement of aeration of left lung. decreased left pleural effusion status post pleural catheter placement. No pneumothorax, a small right pleural effusion with right perihilar right basilar opacity, pulmonary vascular congestion. CT abdomen and pelvis, no significant change. Peritoneal carcinomatosis same as 10/31/2018. Interval increase in moderate abdominal and pelvic ascites, no bowel obstruction, partially imaged right pleural effusion, likely moderate in size, subcutaneous infiltration lower anterior abdominal wall, which favours edema though cellulitis could appear similar. . No fluid collections with abscess. slight decrease in mildly enlarged upper abdominal lymph nodes. EKG: Shows sinus tachycardia. PVCs at a rate of 111. ST wave abnormalities. ASSESSMENT AND PLAN: This is a 63-year-old female with endometrial carcinoma with malignant pleural effusion, ascites, currently on palliative chemotherapy, went to hematology/oncology for a second cycle of palliative chemotherapy and as patient was not feeling well with cough, shortness of breath, and abdominal discomfort and imaging studies showed complete opacification of left lung and she was brought into the ER . 1. Shortness of breath, malignant pleural effusion, complete opacification of the left lung, status post left-sided PleurX catheter placement by cardiothoracic surgery, . Post Procedure and draining of effusion patient feeling much better.Weaned off from NRB to Mask. We will admit to medicine/tele monitor and consult cardiothoracic surgery. Will closely monitor. 2. Malignant ascites, was drained last admission CT scan showing moderate to large ascites. Last admission, thought it could be most likely from endometrial cancer Plan for US guided paracentesis in am. Will give IV albumin post paracentesis.The patient has some abdominal pain, possible spontaneous bacterial peritonitis. We will follow the cultures and empirically place on IV Rocephin. 3. Recurrent endometrial carcinoma currently on palliative chemotherapy, follows with hematology/oncology. Will consult consulting hematology/oncology. 4. Diabetes on insulin pump which was taken off, Lantus and insulin sliding scale. The patient currently n.p.o. for procedures. Consult glycemic pharmacist. 5. History of chronic obstructive pulmonary disease. home inhalers and nebs p.r.n. 6. History of hyperlipidemia. Continue statin. 7. History of depression and anxiety. Continue Klonopin and Celexa. 8. History of hypertension. Continue atenolol. 9. History of gastroesophageal reflux disease. Continue proton pump inhibitor. 10. MONIE on chronic kidney disease stage III, baseline creatinine around 1.5, last admission currently creatinine 1.8. received fluids in the ER. We will follow the labs in morning. 11. History of anemia. Hemoglobin around 10, baseline. Presents with hemoglobin of 7.5 today. No obvious signs of bleeding. Mostly from chemo.We will check stool for Hemoccult. Placed on IV Protonix b.i.d. and transfuse 1 unit of packed red blood cell and follow the labs. If necessary, we will consult gastrointestinal. 12. Deep venous thrombosis prophylaxis, sequential compression devices for now. DISPOSITION: Closely monitoring in the med/tele. Daughter says they still discussing about her code status, but they want to be full code for now. Social service to help with discharge planning. ARABELLA
[2018-12-06] MEDS ORDERED: INSULIN ASPART 100 UNITS/ML 3 ML PEN SC SCH (04:00)
--- NOTE | 2018-12-06 05:24 | Consultation Report ---
DATE OF CONSULTATION: 12/05/2018 REASON FOR CONSULTATION: Large left malignant pleural effusion. HISTORY OF PRESENT ILLNESS: Denise Medeiros is a 63-year-old morbidly obese female who has a history of metastatic endometrial carcinoma. We were asked to see her about a month ago when she presented in early October with bilateral pleural effusions and had 1250 mL of fluid drawn from the left side and then 7 days later drained 1400 mL from the right side. This was on 11/03/2018. We were asked to see her about a PleurX catheter at that time; however, we held off as she was getting chemotherapy. The patient presents now and has completely mk out her left side. Surprisingly enough, she has none on the right. I had a long discussion with the patient and her 2 daughters at bedside here in the Emergency Room. She is having a mediastinal shift and is in a bit of trouble. I was asked to see her tonight in the Emergency Room. PAST MEDICAL HISTORY: 1. Malignant pleural effusions. 2. Morbid obesity. 3. Gastroesophageal reflux disease. 4. Diastolic congestive heart failure. 5. Sleep apnea. 6. Anemia. 7. Diabetes mellitus. 8. Hyperlipidemia. PAST SURGICAL HISTORY: 1. 2, para 2, abortus 0. 2. Insertion of a right internal jugular Infusaport. 3. Cholecystectomy. 4. Hysterectomy. 5. Appendectomy. MEDICATIONS: 1. Albuterol inhaler. 2. Aspirin. 3. Atenolol. 4. Atorvastatin. 5. Citalopram. 6. Clonazepam. 7. Dexamethasone with chemotherapy. 8. Lasix. 9. Insulin. 10. Metformin. 11. Zofran. 12. Pantoprazole. 13. Compazine p.r.n. ALLERGIES: 1. SULFA. 2. SEPTRA. 3. MORPHINE. 4. CEPHALOSPORINS. 5. BUPROPION. 6. FLAGYL. 7. NORTRIPTYLINE. 8. QUINOLONES. 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 She lives at home. She has 2 adult daughters. She is retired. She does not smoke. FAMILY HISTORY: Both of her parents at age 73. Her father from apparently lung cancer. Her mother from a "massive heart attack." She has 2 daughters. Both are healthy and present at the bedside. They deny any significant medical problems. She has a brother who from a massive heart attack in his 60s and a sister who in her late 40s or early 50s from apparent myocardial infarction. REVIEW OF SYSTEMS: The patient has become more and more short of breath. She is not doing much at home. She states her appetite is poor. She has not had much in the way of peripheral edema. She denies any neurologic symptoms recently. She did improve after her bilateral thoracentesis last month. She denies any fevers or chills. She does not have a productive cough, but she has been markedly short of breath and has felt "very weak." She cannot lie flat due to orthopnea. She denies any visual or auditory symptoms. She has been making urine. She denies dysuria, hematochezia, hematemesis. She has had no skin breakdown. She has had no neurologic events. PHYSICAL EXAMINATION: GENERAL: This is a very large woman who stands 5 feet 3 inches tall with a BMI over 47. She weighs about 265 pounds. HEENT: Her extraocular movements are intact. Sclerae are a bit pale but anicteric. Pupils are equally round and reactive. Her sclerae are anicteric. Her teeth are in fairly good repair. Her tongue is midline. NECK: Very thick and supple. She has a well-healed right Port-A-Cath in place. LUNGS: She has markedly decreased breath sounds on the left. She has a few rhonchi on the right, but I do not really hear any wheezing or rales. She has a few rhonchi. ABDOMEN: Markedly obese. (It should be noted that the patient has undergone a paracentesis for ascites). EXTREMITIES: Interestingly enough, she has no peripheral edema and has excellent peripheral pulses. She has no joint effusions. NEUROLOGIC: She is completely intact, although she is a bit anxious. DIAGNOSTIC DATA: I reviewed her x-ray and she has a markedly shifted mediastinum with a mk out left side. Her hemoglobin is down to 7.5. Platelet counts are stable, in fact quite high at 634. Her BUN and creatinine are 32 and 1.8. Her blood sugar is also high at 287. Albumin is low. ASSESSMENT AND PLAN: Recurrent left malignant pleural effusion in a morbidly obese patient with widely metastatic endometrial carcinoma being treated by Dr. Sylvester Sethi. I am going to insert a PleurX catheter. The patient's heart rate is in the 120s. She has got 97% facemask, but is using her accessory muscles to breathe and is breathing 30 times a minute on 10 liters. I am going to insert a PleurX catheter on the left side as I think it will be helpful. The patient and her 2 daughters agreed.
--- NOTE | 2018-12-06 05:35 | Operative Report ---
DATE OF OPERATION: 12/05/2018 PROCEDURE: Insertion of left PleurX catheter. SURGEON: Enrike Reyes MD ANESTHESIA: Local. SPECIFICS OF PROCEDURE: After a long discussion with the patient and her 2 daughters, and we had a long discussion about malignant pleural effusions, we elected to proceed with a left PleurX catheter. This had been discussed with Dr. Hinkle on her last admission. DESCRIPTION OF PROCEDURE: With the patient in the left lateral decubitus position with the patient in reverse Trendelenburg with the head up a bit, an ultrasound was used to find a window. In the posterior axillary line, after prepping and draping in usual sterile fashion and calling a time-out, a skin wheal was raised, 25-gauge needle, 1% Xylocaine. A longer needle was used to anesthetize the deeper subcutaneous tissues and muscle and then we went above a rib into the pleural cavity without difficulty and rust-colored fluid was drained. A guidewire was inserted through this and the needle removed and the guidewire left in place. This incision was enlarged to about 1 cm. About 12 cm inferior and anterior to this, another skin wheal was raised, 25-gauge needle, 1% Xylocaine and a 1-cm incision was made. A long needle with 1% Xylocaine without epinephrine was used to anesthetize the subcutaneous tissues between these 2 incisions and a metal tunneler was attached to the PleurX catheter and dragged from the anterior site to the posterior site and then the tunneler was removed. An introducer sheath with an inner cannula was slid over the guidewire and the inner cannula and guidewire were removed. A PleurX catheter was inserted through the peel-away sheath which was removed. Two separate 3-0 silk sutures were used to close the posterior incision and then a 3-0 silk suture was used to anchor the catheter to the incision anteriorly. A 1900 mL of a rust-colored fluid was drained. The x-ray looked much improved and she felt better. She is going to be admitted to the medical service to the oncology floor and we will follow her while she is here. I attest to the content of the Intraoperative Record and any orders documented therein. Any exception s are noted below.
[2018-12-06 06:35] LABS: Basophils # (auto) 0.01 K/uL (0-0.2); Basophils % (auto) 0.1 %; Hematocrit (blood only) 26.4 % (37-47); Hemoglobin 8.1 g/dL (12.0-16.0); Immature Granulocytes % (auto) 1.4 %; Lymphocytes # (auto) 1.33 K/uL (1.2-3.4); Lymphocytes % (auto) 9.5 %; Mean Corpuscular Hgb Conc 30.7 g/dL (32-36); Mean Corpuscular Volume 84.9 fL (80-100); Mean Platelet Volume 8.8 fL (7.4-10.4); Monocytes # (auto) 1.22 K/uL (0.11-0.59); Monocytes % (auto) 8.7 %; Neutrophils # (auto) 11.28 K/uL (1.4-6.5); Neutrophils % (auto) 80.3 %; Nucleated RBC # (auto) 0.07 K/uL (0-0); Nucleated RBC % (auto) 0.5 %; Platelet Count 602 K/uL (130-400); RDW Coefficient of Variation 16.4 % (11.5-14.5); Red Blood Count 3.11 M/uL (4.2-5.4); White Blood Count 14.04 K/uL (4.8-10.8)
[2018-12-06 06:51] LABS: Estimated Average Glucose 180 mg/dl
[2018-12-06 07:10] LABS: BUN Creatinine Ratio 20.8 (10-20); Calcium 8.7 mg/dl (8.5-10.1); Creatinine Clr Calc Pharmacy 40.2 ml/min; Est GFR (African American) 35.3; Est GFR (Non-African American) 30.5; Magnesium 2.1 mg/dl (1.8-2.4)
[2018-12-06 07:25] LABS: RBC Morphology Unremarkable
[2018-12-06] MEDS: INSULIN HUMAN NPH SC SCH ×2 (08:25→20:55)
--- NOTE | 2018-12-06 09:29 | Progress Note ---
DATE: 12/06/2018 The patient is seen today. She had a quiet night. Her respirations are down to 20. She is on her normal CPAP. Her sats are 95%. Vital signs are quite stable. I was quite pleased not only with her x-ray, but her CT scan which shows almost complete drainage of the left pleural fluid. We are going to drain her daily. She does have ascites, but I think she has done well symptomatically from the drainage of this fluid. We will continue to follow along.
[2018-12-06] MEDS: ATENOLOL 50 MG TABLET PO SCH (10:04)
[2018-12-06] MEDS: ASPIRIN 81 MG ECTAB PO SCH (10:04)
[2018-12-06] MEDS: ATORVASTATIN 40 MG TAB PO SCH (10:04)
[2018-12-06] MEDS: PANTOprazole 40 MG in SYRINGE 0 ML IV SCH ×2 (10:05→20:56)
[2018-12-06] MEDS: CITALOPRAM 40 MG TAB PO SCH (10:05)
[2018-12-06] MEDS: ALBUMIN 25% 50 ML IV SCH ×4 (10:17→13:13)
[2018-12-06] MEDS: INSULIN ASPART 100 UNITS/ML 3 ML PEN SC SCH ×4 (10:24→20:53)
[2018-12-06 11:10] LABS: Mononuclear WBC Peritoneal 59.6 %; Polynuclear WBC Peritoneal 40.4 %; RBC Peritoneal Fluid (A) 5000 /uL; WBC Peritoneal Fluid (A) 466 /ul (0-300)
--- NOTE | 2018-12-06 11:16 | Ultrasound Report ---
PARACENTESIS UNDER ULTRASOUND GUIDANCE CLINICAL HISTORY: Malignant ascites. COMPARISON STUDY: Abdominal CT dated 12/05/2018. PROCEDURE: The risks, benefits, and alternatives to the procedure were discussed with the patient who voiced understanding. Written informed consent was obtained. Following real-time ultrasound localiza tion of a suitable pocket of fluid in the right lower quadrant, the abdomen was prepped and draped in the usual sterile fashion. The skin and soft tissues were anesthetized with 1% lidocaine. The sheath ed paracentesis was inserted and approximately 4.4 liters of straw-colored ascitic fluid was removed by vacuum suction. A sample was sent for laboratory analysis. The procedure was well tolerated and wi thout immediate complication. The patient left the department in satisfactory condition. IMPRESSION: Successful ultrasound-guided paracentesis with removal of approximately 4.4 liters of asc itic fluid. Electronically signed by: Jordy Markham M.D. 12/06/2018 11:14 AM
--- NOTE | 2018-12-06 11:22 | Pharmacy Report ---
Glycemic Control Consultation - Date of Service December 06, 2018 - Scope Scope: Glycemic Pharmacist consulted by Dr Perdue on 12/05/18 for glycemic control and to write orders per [facility] inpatient glycemic control protocol - Objective Weight: 116.3 kg Accuchecks BSG (last 24hrs): 12/05/18 12/05/18 12/06/18 18:51 21:58 04:26 Glucose 287 H POC Glucose 303 H 209 H 12/06/18 06:05 Glucose 187 H POC Glucose Laboratory Data (last 24hrs): 12/05/18 12/06/18 18:51 06:05 Potassium 4.3 4.0 Carbon Dioxide 39 H 40 H Anion Gap 5.0 5.0 Creatinine 1.80 H 1.74 H Est Cr Clr Drug Dosing 39.9 40.2 HbA1c: Hemoglobin A1c 7.9 % (4.5-5.6) H 12/06/18 06:05 - Recent Pertinent Medications Outpatient Anti-diabetic Regimen: * Novolog pump (previous settings from Oct 2018 admission: basal of 121.5 units/ day, CF 10, CR 2) * A1c = 7.9 % 12/06/18 * Note: was receiving dexamethasone on chemo days The patient is currently receiving: * Basal insulin: NPH 20 units at midnight (when insulin pump was d/ c'd) * Correctional Insulin: Novolog Correction per scale ACHS Goal Range: Low 120 mg/dL - High 160 mg/dL Correction Factor: 12 mg/dL/unit * Prandial insulin: Per carb ratio of 1 unit per 3 grams CHO consumed * Oral Agents: None at this time Risk Factors for Insulin Resistance: * Infection: * Diet: NPO * Recent surgery/procedure: s/p L PleurX catheter placement last night - Assessment & Plan Assessment & Plan: ASSESSMENT: * 63 y/o female admitted for a pleural effusion. She is a type 2 diabetic maintained on an insulin pump that is typically managed by her daughters. She is known to the glycemic service from previous admissions. In the past, we have maintained her on NPH + Novolog while in the hospital since she is unable to manage the pump herself. * Upon admission, she was given a dose of NPH when insulin pump turned off. Since this was just given at midnight and she is NPO, will not give the next dose until lunch today, resuming AM dosing tomorrow. Second dose to be given at HS tonight and then dinner tomorrow. Based on previous admissions, her basal requirements were ~60 units/day (compared to almost double this with her insulin pump). PLAN FOR INPATIENT GLYCEMIC CONTROL: * Hold outpatient oral diabetes medications and insulin pump while admitted * Basal insulin * NPH 30 units qAM (1st dose w/ lunch today) * NPH w/ dinner (at HS tonight) per the following scale: * 20 units for BSG < 110 * 30 units for BSG 110 or greater * Bolus insulin - tighten goal range * NovoLog per scale ACHS or Q6hrs while NPO * Goal Range: Low 110 mg/dL - High 150 mg/dL * Correction Factor: 12 mg/dL/unit * Nutritional / Prandial insulin per carb ratio of 1 unit per 3 grams CHO consumed * Please note that the plan above was derived based on current level of insulin resistance and hospital stress. These recommendations are appropriate for inpatient admission only. Plan of care upon discharge will need to be reassessed to avoid potential outpatient hypo/hyperglycemia. Thank you.
[2018-12-06] MEDS ORDERED: INSULIN HUMAN NPH SC SCH ×2 (11:30→16:30)
[2018-12-06] MEDS ORDERED: TRAMADOL HCL 50 MG TABLET PO PRN (15:54)
--- NOTE | 2018-12-06 17:07 | Hospitalist Progress Note ---
Date of Service December 06, 2018 Assessment & Plan (1) Pleural effusion, left: Patient is a 63 yr female with h/o endometrial carcinoma with malignant pleural effusion, ascites, currently on palliative chemotherapy who recently had 2nd cycle of palliative chemotherapy presents with cough, shortness of breath, and abdominal discomfort. Chronic Oxygen dependency: 6 liters of oxygen at baseline Malignant pleural effusion --CXR: Near complete opacification of the left hemithorax which has developed since prior exam. Minimal aeration of the left upper lobe. The findings likely reflect a combination of a moderate to large left pleural effusion with left lung compressive atelectasis. Small right pleural effusion. Pulmonary vascular congestion. --S/P left-sided PleurX catheter placement --Appreciate CT surgery help --Continue Supplemental oxygen --Repeat CXR in AM Malignant Ascites: R/O SBP CT ABD reviewed S/P Abdominal Paracentesis:removal of approximately 4.4 liters of ascitic fluid. Received Albumin received FU Cultures Continue Ceftriaxone for now Recurrent Endometrial carcinoma Currently on palliative chemotherapy Follows with as outpatient DM II: Last A1C: 7.9 Continue Lantus and ISS Consult glycemic pharmacist COPD Continue home inhalers Nebs PRN Hyperlipidemia Continue statin Depression/Anxiety Continue Klonopin, Celexa HTN: Stable Continue atenolol GERD Continue PPI MONIE on CKD III: Baseline Cr around 1.5 Received IV fluids monitor renal function Anemia: Likely multifactorial: Anemia of chronic disease, CKD, chemotherapy S/P 1 unit PRBC Monitor CBC No obvious signs of bleeding On PPI Check FOBT DVT Px: SCDs Code Status: Full Code for now Disposition: Social service for discharge planning. Subjective Patient is seen and examined at bedside Shortness of breath is much improved after drainage of left pleural fluid Reports mild abdominal pain at the site of paracentesis Denies chest pain, dizziness, nausea No other complaints Physical Exam 2 Vital Signs (Past 24 Hours): Last Vital Signs Temp 36.6 C 12/06/18 15:50 Pulse 64 12/06/18 15:50 Resp 28 H 12/06/18 15:50 BP 101/61 12/06/18 15:50 Pulse Ox 94 12/06/18 15:50 Physical Exam: Physical Exam: Vitals signs as noted above General Appearance:Obese, no apparent distress Head: normocephalic, Atraumatic Eyes: normal inspection, EOMI Neck: supple, Trachea midline Respiratory/Chest: Decreased breath sounds, B/L crackles, + PleurX Cath on left side Cardiovascular: S1, S2, No murmur Abdomen/GI:Soft, Non tender, Bowel sounds present Extremities/Musculoskelatal:normal inspection, no edema Neurologic/Psych:AAOX3, grossly no focal neurological deficits Skin: normal color, warm Results & Data Laboratory Results Short CBC 12/05/18 12/06/18 Range/Units 18:51 06:05 WBC 13.39 H 14.04 H (4.8-10.8) K/uL Hgb 7.5 L 8.1 L (12.0-16.0) g/dL Hct 25.5 L 26.4 L (37-47) % Plt Count 634 H 602 H (130-400) K/uL BMP 12/05/18 12/06/18 18:51 06:05 Sodium 136 138 Potassium 4.3 4.0 Chloride 93 L 93 L Carbon Dioxide 39 H 40 H BUN 32 H 36 H Creatinine 1.80 H 1.74 H Glucose 287 H 187 H Calcium 9.0 8.7 Cardiac Enzymes 12/05/18 Range/Units 18:51 Troponin I 0.039 (0-0.045) ng/ml Liver Function 12/05/18 Range/Units 18:51 Total Bilirubin 0.3 (0.2-1) mg/dl AST 10 L (15-37) U/L ALT 16 (12-78) U/L Alkaline Phosphatase 135 H (45-117) U/L Albumin 2.6 L (3.4-5.0) gm/dl
--- NOTE | 2018-12-06 19:41 | Oncology Consultation ---
Date of Consultation December 06, 2018 Impr: 63 year old female with malignant ascites and malignant pleural effusion, pathology consistent with Mullerian origin, in patient with prior history of endometrial cancer metastatic endometrial cancer, malignant ascites malignant pleural effusion - s/ p pleurex catheter with improvement of left effusion with drainage s/p therapeutic paracentesis 4.4L she feels improved with dyspnea and abd distention since the drainage of pleural fluid and ascites hold chemo in inpatient setting follow up in the office upon discharge anemia: due to chemo and chronic disease s/p transfusion, check iron tibc ferritin, transfuse as needed for hemoglobin<8. elevated platelet ct likely reactive in patient with metastatic cancer. check iron tibc ferritin follow up in the office upon discharge thank you for consult Reason for consult: metastatic endometrial cancer, malignant ascites and malignant pleural effusion History of Present Illness Attending Physician: Van Gonzalez MD HPI: 63 year old female with history of endometrial cancer in 2013 s/p GARTH/BSO, no adjuvant therapy at that time due to early stage She now has malignant ascites and malignant pleural effusion - pathology showed metastatic adenocarcinoma consistent with mullerian(program management specialist) primary She follows with Dr Sethi and is on palliative chemotherapy with carboplatin and taxol she is admitted with anemia hemoglobin 7.5 on admission which improved with transfusion shortness of breath and abdominal discomfort - s/p left pleurex and therapeutic paracentesis feels improved has fatigue and generalized weakness denies any nausea or vomiting or paresthesias or headaches or abd pain +bloating improved +SALAZAR improved Allergies Allergy/AdvReac Type Severity Reaction Status Date / Time Sulfa (Sulfonamide Allergy Mild HIVES Verified 10/25/18 18:31 Antibiotics) sulfamethoxazole Allergy Mild HIVES Verified 10/25/18 18:31 trimethoprim Allergy Mild HIVES Verified 10/25/18 18:31 morphine AdvReac Severe nausea Verified 10/25/18 18:31 Cephalosporins AdvReac Mild NAUSEA Verified 10/25/18 18:31 bupropion AdvReac Unknown DELIRIUM Verified 10/29/18 08:13 metronidazole AdvReac Unknown GI UPSET Verified 10/25/18 18:31 nortriptyline AdvReac Unknown DELIRIUM Verified 10/29/18 08:13 Quinolones AdvReac Unknown VOMITING Verified 10/25/18 18:31 FROM CIPRO INTAKE Home Medications Home Medications Medication Instructions Recorded Confirmed Type aspirin 81 mg PO QAM 10/25/18 12/05/18 History atenolol 100 mg PO QAM 10/25/18 12/05/18 History clonazepam 1 mg PO HS 10/25/18 12/05/18 History metformin 500 mg PO QAM 10/25/18 12/05/18 History pantoprazole 40 mg PO QAM 10/25/18 12/05/18 History albuterol sulfate [Proventil HFA] 2 puff INHALATION Q4H PRN 12/05/18 12/05/18 History atorvastatin 80 mg PO DAILY 12/05/18 12/05/18 History citalopram 40 mg PO DAILY 12/05/18 12/05/18 History dexamethasone 4 mg PO DIRECTED 12/05/18 12/05/18 History furosemide 40 mg PO DAILY 12/05/18 12/05/18 History insulin aspart U-100 1 dose CONTINUOUS SUBCUTANEOUS 12/05/18 12/05/18 History INFUSION UD ondansetron HCl 8 mg PO Q8H PRN 12/05/18 12/05/18 History prochlorperazine maleate 10 mg PO Q6H PRN 12/05/18 12/05/18 History [Compazine] Patient History Social History Current Living Situation: Family Other Information That Helps Us Care for You: No Feels Safe at Home: Yes Smoking Status: Former smoker Do You Dip or Chew Tobacco: No Smoking End Date: quit about age 38 Hx Alcohol Use: No Hx Substance Use: No Beliefs That Will Affect Care: None Preferred Language: Turkish Communication Ability: Effective Supervisor [employer] Required: No Review of Systems as stated per HPI Physical Exam 2 Vital Signs (Past 24 Hours): Last Vital Signs Temp 36.6 C 12/06/18 19:29 Pulse 65 12/06/18 19:29 Resp 21 12/06/18 19:29 BP 108/66 12/06/18 19:29 Pulse Ox 94 12/06/18 19:29 Gen: chronically ill appearing female NAD HEENT: anicteric +pallor no mucositis lungs: decreased bs at bases no wheezes or rhonchi abd: obese softly distented nontender ext: trace edema skin warm and dry Results & Data Laboratory Results CBC reviewed CXR reviewed us paracentesis reviewed pathology reviewed form ascites and pleural fluid
[2018-12-06] MEDS: clonazePAM 1 MG TAB PO SCH (20:53)
[2018-12-07 06:23] LABS: Hematocrit (blood only) 25.9 % (37-47); Hemoglobin 7.9 g/dL (12.0-16.0); Mean Corpuscular Hgb Conc 30.5 g/dL (32-36); Mean Corpuscular Volume 87.2 fL (80-100); Mean Platelet Volume 8.7 fL (7.4-10.4); Platelet Count 639 K/uL (130-400); RDW Coefficient of Variation 17.1 % (11.5-14.5); Red Blood Count 2.97 M/uL (4.2-5.4); White Blood Count 9.57 K/uL (4.8-10.8)
[2018-12-07 06:57] LABS: BUN Creatinine Ratio 24.6 (10-20); Calcium 8.7 mg/dl (8.5-10.1); Creatinine Clr Calc Pharmacy 39.1 ml/min; Est GFR (African American) 34.1; Est GFR (Non-African American) 29.4; Potassium 4.1 mmol/L (3.5-5.1)
--- NOTE | 2018-12-07 07:37 | XRay Report ---
XR chest 1V portable CLINICAL HISTORY: effusion COMPARISON STUDY: Chest radiograph December 05, 2018 7:24 PM. FINDINGS: Right internal jugular [id number] is in place. Left pleural catheter remains in place al though has been partially withdrawn. There is no pneumothorax. Cardiomegaly is unchanged. Small to mo derate right and small left pleural effusions persist. There are hazy bibasilar opacities. There is p robably vascular congestion. IMPRESSION: 1. Small to moderate right and small left pleural effusions. Left pleural catheter in place, partiall y withdrawn. No pneumothorax. 2. Persistent hazy bibasilar opacities. Electronically signed by: Reynaldo Covarrubias M.D. 12/07/2018 7:35 AM
[2018-12-07] MEDS ORDERED: SODIUM CHLORIDE 0.9% 250 ML IV PRN (08:13)
[2018-12-07] MEDS: INSULIN ASPART 100 UNITS/ML 3 ML PEN SC SCH ×4 (08:16→20:39)
[2018-12-07] MEDS: INSULIN HUMAN NPH SC SCH ×2 (08:18→17:41)
[2018-12-07] MEDS: ATENOLOL 50 MG TABLET PO SCH (08:20)
[2018-12-07] MEDS: ASPIRIN 81 MG ECTAB PO SCH (08:20)
[2018-12-07] MEDS: PANTOprazole 40 MG in SYRINGE 0 ML IV SCH ×2 (08:20→20:39)
[2018-12-07] MEDS: CITALOPRAM 40 MG TAB PO SCH (08:20)
[2018-12-07] MEDS: ATORVASTATIN 40 MG TAB PO SCH (08:20)
[2018-12-07 09:01] LABS: Ferritin 473.9 ng/ml (8-388)
--- NOTE | 2018-12-07 12:57 | Progress Note ---
DATE: 12/07/2018 Ms. Medeiros was drained for 100 mL today. She is comfortable and has good saturations on a nasal prong. Her x-ray today shows a much better aeration in the left. She underwent a paracentesis yesterday and feels better. When she is discharged, we will set up her PleurX catheter drainage. We will see her back in the office.
--- NOTE | 2018-12-07 18:11 | Hospitalist Progress Note ---
Date of Service December 07, 2018 Assessment & Plan (1) Pleural effusion, left: Patient is a 63 yr female with h/o endometrial carcinoma with malignant pleural effusion, ascites, currently on palliative chemotherapy who recently had 2nd cycle of palliative chemotherapy presents with cough, shortness of breath, and abdominal discomfort. Chronic Oxygen dependency: 6 liters of oxygen at baseline Malignant pleural effusion --CXR: Near complete opacification of the left hemithorax which has developed since prior exam. Minimal aeration of the left upper lobe. The findings likely reflect a combination of a moderate to large left pleural effusion with left lung compressive atelectasis. Small right pleural effusion. Pulmonary vascular congestion. --S/P left-sided PleurX catheter placement --Appreciate CT surgery help --Continue Supplemental oxygen --Repeat CXR:1. Small to moderate right and small left pleural effusions. Left pleural catheter in place, partially withdrawn. No pneumothorax. Persistent hazy bibasilar opacities. --Needs FU with CT surgery upon discharge Malignant Ascites: R/O SBP--less likely CT ABD reviewed S/P Abdominal Paracentesis:removal of approximately 4.4 liters of ascitic fluid. Received Albumin received Peritoneal Cultures: No growth to date Urine Culture: pending Continue Ceftriaxone for now Recurrent Endometrial carcinoma Currently on palliative chemotherapy Follows with as outpatient DM II: Last A1C: 7.9 Continue Lantus and ISS Consult glycemic pharmacist COPD Continue home inhalers Nebs PRN Hyperlipidemia Continue statin Depression/Anxiety Continue Klonopin, Celexa HTN: Stable Continue atenolol GERD Continue PPI MONIE on CKD III: Baseline Cr around 1.5 Received IV fluids monitor renal function Anemia: Likely multifactorial: Anemia of chronic disease, CKD, chemotherapy S/P 2 units PRBC Monitor CBC No obvious signs of bleeding On PPI Check FOBT: pending Keep Hb >8 DVT Px: SCDs Code Status: Full Code for now Disposition: Social service for discharge planning. Subjective Patient is seen and examined at bedside No new complaints Hb:7.9 today Shortness of breath improved Abdominal pain resolved Denies chest pain, dizziness, nausea Family at bedside Physical Exam 2 Vital Signs (Past 24 Hours): Last Vital Signs Temp 36.3 C L 12/07/18 15:04 Pulse 60 12/07/18 16:00 Resp 24 12/07/18 15:04 BP 110/74 12/07/18 15:04 Pulse Ox 90 12/07/18 15:04 Physical Exam: Physical Exam: Vitals signs as noted above General Appearance:Obese, no apparent distress Head: normocephalic, Atraumatic Eyes: normal inspection, EOMI Neck: supple, Trachea midline Respiratory/Chest: Decreased breath sounds, CTA, + PleurX Cath on left side Cardiovascular: S1, S2, No murmur Abdomen/GI:Soft, Non tender, Bowel sounds present Extremities/Musculoskelatal:normal inspection, no edema Neurologic/Psych:AAOX3, grossly no focal neurological deficits Skin: normal color, warm Results & Data Laboratory Results Short CBC 12/07/18 Range/Units 05:48 WBC 9.57 (4.8-10.8) K/uL Hgb 7.9 L (12.0-16.0) g/dL Hct 25.9 L (37-47) % Plt Count 639 H (130-400) K/uL BMP 12/07/18 05:48 Sodium 138 Potassium 4.1 Chloride 96 L Carbon Dioxide 39 H BUN 44 H Creatinine 1.79 H Glucose 121 H Calcium 8.7 Diagnostic Findings CXR: 1. Small to moderate right and small left pleural effusions. Left pleural catheter in place, partially withdrawn. No pneumothorax. 2. Persistent hazy bibasilar opacities.
[2018-12-07] MEDS: clonazePAM 1 MG TAB PO SCH (20:39)
[2018-12-07] MEDS: cefTRIAXone SODIUM 2,000 MG in DEXTROSE 5% 50 ML IV SCH (22:01)
[2018-12-08 06:24] LABS: Hematocrit (blood only) 30.5 % (37-47); Hemoglobin 9.3 g/dL (12.0-16.0); Mean Corpuscular Hgb Conc 30.5 g/dL (32-36); Mean Corpuscular Volume 87.6 fL (80-100); Mean Platelet Volume 8.7 fL (7.4-10.4); Nucleated RBC # (auto) 0.03 K/uL (0-0); Nucleated RBC % (auto) 0.4 %; Platelet Count 560 K/uL (130-400); RDW Coefficient of Variation 17.1 % (11.5-14.5); RDW Standard Deviation 53.1 fL (36.4-46.3); Red Blood Count 3.48 M/uL (4.2-5.4); White Blood Count 8.28 K/uL (4.8-10.8)
[2018-12-08 06:52] LABS: BUN Creatinine Ratio 25.2 (10-20); Calcium 8.2 mg/dl (8.5-10.1); Creatinine Clr Calc Pharmacy 44.1 ml/min; Est GFR (African American) 40.3; Est GFR (Non-African American) 34.8; Potassium 3.9 mmol/L (3.5-5.1)
[2018-12-08] MEDS: ATENOLOL 50 MG TABLET PO SCH (08:45)
[2018-12-08] MEDS: ASPIRIN 81 MG ECTAB PO SCH (08:45)
[2018-12-08] MEDS: PANTOprazole 40 MG in SYRINGE 0 ML IV SCH (08:46)
[2018-12-08] MEDS: CITALOPRAM 40 MG TAB PO SCH (08:46)
[2018-12-08] MEDS: ATORVASTATIN 40 MG TAB PO SCH (08:46)
[2018-12-08] MEDS: INSULIN ASPART 100 UNITS/ML 3 ML PEN SC SCH ×4 (08:47→20:53)
[2018-12-08] MEDS: INSULIN HUMAN NPH SC SCH ×2 (08:47→17:58)
--- NOTE | 2018-12-08 10:01 | Pharmacy Report ---
Pharmacy Glycemic Short Note 2 - Date of Service December 08, 2018 - Glycemic Short BSG Results (Last 24 hours): 12/07/18 12/07/18 12/07/18 11:49 16:37 20:38 Glucose POC Glucose 126 H 125 H 108 H 12/08/18 12/08/18 05:48 07:28 Glucose 99 POC Glucose 106 H OUTPATIENT ANTIDIABETIC REGIMEN: * Novolog pump (previous settings from Oct 2018 admission: basal of 121.5 units/ day, CF 10, CR 2) * A1c = 7.9 % 12/06/18 * Note: was receiving dexamethasone on chemo days ASSESSMENT: * Blood sugars at goal, no changes at this time * Patient remains on IV Rocephin PLAN FOR INPATIENT GLYCEMIC CONTROL: * Hold outpatient oral diabetes medications and insulin pump while admitted * Basal insulin * NPH 30 units qAM * NPH w/ dinner per the followng scale: * 20 units for BSG < 110 * 30 units for BSG 110 or greater * Bolus insulin * NovoLog per scale ACHS or Q6hrs while NPO * Goal Range: Low 110 mg/dL - High 150 mg/dL * Correction Factor: 12 mg/dL/unit * Nutritional / Prandial insulin per carb ratio of 1 unit per 3 grams CHO consumed PLAN FOR DISCHARGE: * Continue Novolog pump and titrations per outpatient provider.
--- NOTE | 2018-12-08 11:26 | Progress Note ---
DATE: 12/08/2018 Denise came and seen today. She has drained only 50 mL today. I thought her x-ray looked pretty good on the left, but she has some some fluid on the right. She is greatly improved since the pleurx catheter was inserted. Her pleurx site is clean. We can manage this as an outpatient. ARABELLA
[2018-12-08] MEDS ORDERED: CARBOHYDRATES FOR HYPOGLYCEMIA PO PRN (14:47)
[2018-12-08] MEDS ORDERED: GLUCAGON FOR INJ 1 MG VIAL IM PRN (14:47)
[2018-12-08] MEDS ORDERED: GLUCOSE 10 TABS/TUBE PO PRN (14:47)
[2018-12-08] MEDS ORDERED: DEXTROSE 50% 50 ML SYRINGE IV PRN (14:47)
[2018-12-08] MEDS ORDERED: GLUCOSE 40% GEL 15 GM TUBE PO PRN (14:47)
--- NOTE | 2018-12-08 17:24 | Hospitalist Progress Note ---
Date of Service December 08, 2018 Assessment & Plan (1) Pleural effusion, left: Patient is a 63 yr female with h/o endometrial carcinoma with malignant pleural effusion, ascites, currently on palliative chemotherapy who recently had 2nd cycle of palliative chemotherapy presents with cough, shortness of breath, and abdominal discomfort. Chronic Oxygen dependency: 6 liters of oxygen at baseline Malignant pleural effusion --CXR: Near complete opacification of the left hemithorax which has developed since prior exam. Minimal aeration of the left upper lobe. The findings likely reflect a combination of a moderate to large left pleural effusion with left lung compressive atelectasis. Small right pleural effusion. Pulmonary vascular congestion. --S/P left-sided PleurX catheter placement --Appreciate CT surgery help --Continue Supplemental oxygen --Repeat CXR:1. Small to moderate right and small left pleural effusions. Left pleural catheter in place, partially withdrawn. No pneumothorax. Persistent hazy bibasilar opacities. --Needs FU with CT surgery upon discharge --PleuX catheter management as per CT surgery Malignant Ascites: SBP ruled out CT ABD reviewed S/P Abdominal Paracentesis:removal of approximately 4.4 liters of ascitic fluid. Received Albumin received Peritoneal Cultures: No growth Urine Culture: No growth DC Ceftriaxone Recurrent Endometrial carcinoma Currently on palliative chemotherapy Follows with as outpatient DM II: Last A1C: 7.9 Continue Lantus and ISS Consult glycemic pharmacist COPD Continue home inhalers Nebs PRN Hyperlipidemia Continue statin Depression/Anxiety Continue Klonopin, Celexa HTN: Stable Continue atenolol GERD Continue PPI MONIE on CKD III: Baseline Cr around 1.5 Received IV fluids monitor renal function Anemia: Likely multifactorial: Anemia of chronic disease, CKD, chemotherapy S/P 2 units PRBC Monitor CBC No obvious signs of bleeding On PPI FOBT:Negative Keep Hb >8 DVT Px: SCDs Code Status: Full Code for now Disposition: Social service for discharge planning. Subjective Patient is seen and examined at bedside 50ml pleural fluid drained today Doing well today Hb:9.3 today Denies chest pain, dyspnea, abd pain, dizziness, nausea Saturating well on 2 litres of Oxygen Physical Exam 2 Vital Signs (Past 24 Hours): Last Vital Signs Temp 36.3 C L 12/08/18 15:17 Pulse 61 12/08/18 15:17 Resp 24 12/08/18 15:17 BP 130/82 12/08/18 15:17 Pulse Ox 93 12/08/18 15:17 Physical Exam: Physical Exam: Vitals signs as noted above General Appearance:Obese, no apparent distress Head: normocephalic, Atraumatic Eyes: normal inspection, EOMI Neck: supple, Trachea midline Respiratory/Chest: Decreased breath sounds, CTA, + PleurX Cath on left side Cardiovascular: S1, S2, No murmur Abdomen/GI:Soft, Non tender, Bowel sounds present Extremities/Musculoskelatal:normal inspection, no edema Neurologic/Psych:AAOX3, grossly no focal neurological deficits Skin: normal color, warm Results & Data Laboratory Results Short CBC 12/08/18 Range/Units 05:48 WBC 8.28 (4.8-10.8) K/uL Hgb 9.3 L (12.0-16.0) g/dL Hct 30.5 L (37-47) % Plt Count 560 H (130-400) K/uL BMP 12/08/18 05:48 Sodium 137 Potassium 3.9 Chloride 96 L Carbon Dioxide 35 H BUN 39 H Creatinine 1.56 H Glucose 99 Calcium 8.2 L
[2018-12-08] MEDS: clonazePAM 1 MG TAB PO SCH (20:53)
[2018-12-09 06:58] LABS: Hematocrit (blood only) 31.5 % (37-47); Hemoglobin 9.5 g/dL (12.0-16.0)
[2018-12-09] MEDS ORDERED: PANTOprazole 40 MG TAB PO SCH (09:00)
[2018-12-09] MEDS: ATORVASTATIN 40 MG TAB PO SCH (09:01)
[2018-12-09] MEDS: ATENOLOL 50 MG TABLET PO SCH (09:01)
[2018-12-09] MEDS: ASPIRIN 81 MG ECTAB PO SCH (09:01)
[2018-12-09] MEDS: CITALOPRAM 40 MG TAB PO SCH (09:01)
[2018-12-09] MEDS: INSULIN ASPART 100 UNITS/ML 3 ML PEN SC SCH ×2 (09:02→12:22)
[2018-12-09] MEDS: INSULIN HUMAN NPH SC SCH (09:03)
--- NOTE | 2018-12-09 13:07 | Hospitalist Progress Note ---
Date of Service December 09, 2018 Assessment & Plan (1) Pleural effusion, left: Patient is a 63 yr female with h/o endometrial carcinoma with malignant pleural effusion, ascites, currently on palliative chemotherapy who recently had 2nd cycle of palliative chemotherapy presents with cough, shortness of breath, and abdominal discomfort. Chronic Oxygen dependency: 6 liters of oxygen at baseline Malignant pleural effusion --CXR: Near complete opacification of the left hemithorax which has developed since prior exam. Minimal aeration of the left upper lobe. The findings likely reflect a combination of a moderate to large left pleural effusion with left lung compressive atelectasis. Small right pleural effusion. Pulmonary vascular congestion. --S/P left-sided PleurX catheter placement --Appreciate CT surgery help --Continue Supplemental oxygen --Repeat CXR:1. Small to moderate right and small left pleural effusions. Left pleural catheter in place, partially withdrawn. No pneumothorax. Persistent hazy bibasilar opacities. --Needs FU with CT surgery upon discharge --PleuX catheter management as per CT surgery --Continue current management Malignant Ascites: SBP ruled out CT ABD reviewed S/P Abdominal Paracentesis:removal of approximately 4.4 liters of ascitic fluid. Received Albumin received Peritoneal Cultures: No growth Urine Culture: No growth DC Ceftriaxone Recurrent Endometrial carcinoma Currently on palliative chemotherapy Follows with as outpatient DM II: Last A1C: 7.9 Continue Lantus and ISS Consult glycemic pharmacist COPD Continue home inhalers Nebs PRN Hyperlipidemia Continue statin Depression/Anxiety Continue Klonopin, Celexa HTN: Stable Continue atenolol GERD Continue PPI MONIE on CKD III: Baseline Cr around 1.5 Received IV fluids monitor renal function Anemia: Likely multifactorial: Anemia of chronic disease, CKD, chemotherapy S/P 2 units PRBC Monitor CBC No obvious signs of bleeding On PPI FOBT:Negative Keep Hb >8 Hb:9.5 today DVT Px: SCDs Code Status: Full Code for now Disposition: Social service for discharge planning. Plan to discharge home today Subjective Patient is seen and examined at bedside Doing well today Offers complaints Hb is stable Denies any bleeding issues Denies chest pain, dyspnea, abd pain, dizziness, nausea Saturating well on 2 litres of Oxygen Discussed with Patient/Daughter Physical Exam 2 Vital Signs (Past 24 Hours): Last Vital Signs Temp 36.5 C 12/09/18 12:00 Pulse 63 12/09/18 12:00 Resp 20 12/09/18 12:00 BP 111/69 12/09/18 12:00 Pulse Ox 91 12/09/18 12:00 Physical Exam: Physical Exam: Vitals signs as noted above General Appearance:Obese, no apparent distress Head: normocephalic, Atraumatic Eyes: normal inspection, EOMI Neck: supple, Trachea midline Respiratory/Chest: Decreased breath sounds, CTA, + PleurX Cath on left side Cardiovascular: S1, S2, No murmur Abdomen/GI:Soft, Non tender, Bowel sounds present Extremities/Musculoskelatal:normal inspection, no edema Neurologic/Psych:AAOX3, grossly no focal neurological deficits Skin: normal color, warm Results & Data Laboratory Results Short CBC 12/09/18 Range/Units 06:18 Hgb 9.5 L (12.0-16.0) g/dL Hct 31.5 L (37-47) %
--- NOTE | 2018-12-09 13:15 | Discharge Summary ---
Date of Service December 09, 2018 Admission HPI Per Admitting Provider CHIEF COMPLAINT: Shortness of breath. HISTORY OF PRESENT ILLNESS: This is a 63-year-old female with past medical history significant for chronic respiratory failure secondary to COPD on home oxygen, currently on 6 L; obstructive sleep apnea, CPAP noncompliance; hypertension; hyperlipidemia; mood disorder; diabetes on insulin pump; chronic anemia, baseline hemoglobin around 10; endometrial cancer status post surgery; remote tobacco abuse, was sent in from the hem/onc office because of shortness of breath and large pleural effusion. The patient has history of endometrial carcinoma status post robotic-assisted laparoscopic hysterectomy and bilateral salpingo-oophorectomy on 07/11/2014 . Then in 10/2018 she was admitted for shortness of breath and respiratory failure and found to have large bilateral pleural effusions and ascites which were drained and cytology came back as metastatic adenocarcinoma . Gi saw the patient and because mostly its malignant ascites there is no role of diuretics. A port was placed. Discharged on oxygen 6lts. Follows with heme/oncology and on pallative chemotherapy with Paclitaxel/Carboplatin . She had 1 dose of chemotherapy and was going to have second palliative chemo today. She was feeling poor and weight gain of 10 pounds and hem/onc tried to get paracentesis done and also x-ray was done, which showed complete opacification of the left lung, so she was sent to ER. In the ER, currently CT surgery did a PleurX catheter and status post drainage of the left pleural effusion and she is feeling better. Intially was placed on NRB mask, currently placed on venti mask and saturating ok. She says she is feeling much better. She was somewhat tachycardic. She says she has on and off headaches and chest pain and cough But none now. Complained of some abdominal pain, on and off, nauseous last night. No runny nose, on and off with a dry cough, no phlegm, low grade fever last night. Appetite is very poor, ambulatory status is very poor at home. She lives with her daughters .Not walking much. Normal bowel and bladder movements. No blood in the stools, no black stools.Daughters likes to get updates on patient status. Admission Exam Per Admitting Provider PHYSICAL EXAMINATION: GENERAL: The patient is morbidly obese, not in acute distress. VITAL SIGNS: Temperature 36.8, pulse 109, respiratory rate in 30s, blood pressure 111/72, oxygen 94% OxyMask on 9 L. HEENT: No pallor, no icterus. Pupils equal, round, and reactive to light. NECK: No JVD, no neck masses, no carotid bruits. CARDIOVASCULAR: S1, S2 heard. Tachycardia. No murmurs. RESPIRATORY: Normal AP diameter. No accessory muscle use. No wheezing, no crackles. bibasilar crackles present ABDOMEN: Soft, bowel sounds present. Mild epigastric abdominal discomfort. No guarding, no rigidity. CENTRAL NERVOUS SYSTEM: Cranial nerves II through XII grossly intact. Nonfocal. EXTREMITIES: No edema, no erythema. Principal Diagnosis Discharge Information Discharge Diagnosis Malignant pleural effusion Ascites MONIE on CKD Discharge Goals Decrease discomfort,Improve disease control, Improve function Discharge Activity Limitations Resume your previous activity Discharge Data Allergies Allergy/AdvReac Type Severity Reaction Status Date / Time Sulfa (Sulfonamide Allergy Mild HIVES Verified 10/25/18 18:31 Antibiotics) sulfamethoxazole Allergy Mild HIVES Verified 10/25/18 18:31 trimethoprim Allergy Mild HIVES Verified 10/25/18 18:31 morphine AdvReac Severe nausea Verified 10/25/18 18:31 Cephalosporins AdvReac Mild NAUSEA Verified 10/25/18 18:31 bupropion AdvReac Unknown DELIRIUM Verified 10/29/18 08:13 metronidazole AdvReac Unknown GI UPSET Verified 10/25/18 18:31 nortriptyline AdvReac Unknown DELIRIUM Verified 10/29/18 08:13 Quinolones AdvReac Unknown VOMITING Verified 10/25/18 18:31 FROM CIPRO INTAKE Consultations 12/05/18 18:46 ED Decision to Admit Stat 12/05/18 21:56 Consult Case Management - Discharge Planning Routine Consult Thoracic Surgery Routine 12/06/18 08:00 Consult Oncology Routine Procedures Performed CT ABD: 1. No significant change in peritoneal carcinomatosis since CT of October 31, 2018. Interval increase in moderate abdominal and pelvic ascites. 2. No bowel obstruction. 3. Partially imaged right pleural effusion, likely moderate in size. Left pleural catheter in place. 4. Subcutaneous infiltration of the lower anterior abdominal wall which is increased. This favors edema although cellulitis could appear similar. No fluid collection to suggest abscess. 5. Slight decrease in mildly enlarged upper abdominal lymph nodes. CXR: 1. Near complete opacification of the left hemithorax which has developed since prior exam. Minimal aeration of the left upper lobe. The findings likely reflect a combination of a moderate to large left pleural effusion with left lung compressive atelectasis. 2. Small right pleural effusion. 3. Pulmonary vascular congestion. Ordered Studies 12/05/18 19:52 CT abd pelvis wo con Stat 12/06/18 08:30 US paracentesis abd w/image Routine Hospital Course (1) Pleural effusion, left: Patient is a 63 yr female with h/o endometrial carcinoma with malignant pleural effusion, ascites, currently on palliative chemotherapy who recently had 2nd cycle of palliative chemotherapy presents with cough, shortness of breath, and abdominal discomfort. Chronic Oxygen dependency: 6 liters of oxygen at baseline Malignant pleural effusion --CXR: Near complete opacification of the left hemithorax which has developed since prior exam. Minimal aeration of the left upper lobe. The findings likely reflect a combination of a moderate to large left pleural effusion with left lung compressive atelectasis. Small right pleural effusion. Pulmonary vascular congestion. --S/P left-sided PleurX catheter placement --Appreciate CT surgery help --Continue Supplemental oxygen --Repeat CXR:1. Small to moderate right and small left pleural effusions. Left pleural catheter in place, partially withdrawn. No pneumothorax. Persistent hazy bibasilar opacities. --Needs FU with CT surgery upon discharge --PleuX catheter management as per CT surgery --Continue current management Malignant Ascites: SBP ruled out CT ABD reviewed S/P Abdominal Paracentesis:removal of approximately 4.4 liters of ascitic fluid. Received Albumin received Peritoneal Cultures: No growth Urine Culture: No growth DC Ceftriaxone Recurrent Endometrial carcinoma Currently on palliative chemotherapy Follows with as outpatient DM II: Last A1C: 7.9 Continue Lantus and ISS Consult glycemic pharmacist COPD Continue home inhalers Nebs PRN Hyperlipidemia Continue statin Depression/Anxiety Continue Klonopin, Celexa HTN: Stable Continue atenolol GERD Continue PPI MONIE on CKD III: Baseline Cr around 1.5 Received IV fluids monitor renal function Anemia: Likely multifactorial: Anemia of chronic disease, CKD, chemotherapy S/P 2 units PRBC Monitor CBC No obvious signs of bleeding On PPI FOBT:Negative Keep Hb >8 Hb:9.5 today DVT Px: SCDs Code Status: Full Code for now Disposition: Social service for discharge planning. Plan to discharge home today Total Time Total Time Spent Total Time Spent (In Minutes): 38 minutes Total Time Includes: Examination of the Patient, Discharge Planning, Medication Reconciliation, Communication With Other Providers and Other Discharge Plan Discharge Items Patient Disposition: Home - Home Health Services Reason For Visit: SOB Discharge Diagnosis: Malignant pleural effusion Ascites MONIE on CKD Condition: Serious Discharge Goals: Decrease discomfort, Improve disease control and Improve function Activity: Resume your previous activity Exercise/Sports: Gradually increase as tolerated Non-emergency contact: Primary Care Provider, Surgeon and Oncologist Call non-emergency contact if: you have any medication questions, your symptoms worsen, your pain is not controlled, your pain is worsening, your pain is unusual for you, your pain is concerning for you and you have a fever Diet: Carb Consistent or DM2 Addtl Provider Instructions: Follow up with your PCP in 1 week as advised Follow up with your CT Surgeon in 1 week Follow up with your Oncologist in 2 weeks Seek immediate medical attention if your symptoms reoccur or worsen Prescriptions: Continue furosemide 40 mg Tablet 40 mg PO DAILY RF: 0 atorvastatin 80 mg Tablet 80 mg PO DAILY RF: 0 citalopram 40 mg Tablet 40 mg PO DAILY RF: 0 ondansetron HCl 8 mg Tablet 8 mg PO Q8H PRN (Reason: Nausea) RF: 0 prochlorperazine maleate [Compazine] 10 mg Tablet 10 mg PO Q6H PRN (Reason: Nausea) RF: 0 insulin aspart U-100 100 unit/mL Solution 1 dose Continuous Subcutaneous Infusion UD RF: 0 dexamethasone 4 mg Tablet 4 mg PO DIRECTED RF: 0 albuterol sulfate [Proventil HFA] 90 mcg/actuation Hfa Aerosol Inhaler 2 puff INHALATION Q4H PRN (Reason: Wheezing) RF: 0 metformin 500 mg Tablet 500 mg PO QAM RF: 0 atenolol 100 mg Tablet 100 mg PO QAM RF: 0 clonazepam 1 mg Tablet 1 mg PO HS RF: 0 aspirin 81 mg Tablet,Delayed Release (Dr/Ec) 81 mg PO QAM RF: 0 pantoprazole 40 mg Tablet,Delayed Release (Dr/Ec) 40 mg PO QAM RF: 0 Stand-Alone Forms: [facility]charge Orders: Discharge Order (Routine); Ordered 12/09/18 Ordered By: Van Gonzalez Admission Data Admit Date/Time: 12/05/18 20:10 Attending Provider: Van Gonzalez Admit Provider: Abel Perdue Primary Care Provider: Hannah Hernandez Other Providers: Rowdy Vargas ; Enrike Reyes ; Penny Vance ; Sylvester Sethi ; Kimberly Martino Service: Telemetry Other Interventions: Discharge Summary Assessment (RN) Last Done: 12/09/18 13:21 Pending Studies at Discharge: No DC Date/Time DO NOT enter until pt leaves facility: 12/09/18 14:10
== END 2018-12-09 14:10 | disposition home health service (06) | DRG 755 ==
LOC: ED 18:02 → 2N 20:10

== ENCOUNTER 2019-11-28 17:48 | Inpatient (IN) ==
[2019-11-28] MEDS ORDERED: SODIUM CHLORIDE 0.9% 500 ML IV SCH (18:15)
[2019-11-28 18:20] LABS: Basophils # (auto) 0.01 K/uL (0-0.2); Basophils % (auto) 0.1 %; Hematocrit (blood only) 32.1 % (37-47); Hemoglobin 9.7 g/dL (12.0-16.0); Immature Granulocytes # (auto) 0.11 K/uL (0.00-0.02); Lymphocytes # (auto) 1.05 K/uL (1.2-3.4); Lymphocytes % (auto) 9.2 %; Mean Corpuscular Hemoglobin 29.2 pg (25-34); Mean Corpuscular Hgb Conc 30.2 g/dL (32-36); Mean Corpuscular Volume 96.7 fL (80-100); Monocytes # (auto) 0.95 K/uL (0.11-0.59); Monocytes % (auto) 8.3 %; Neutrophils # (auto) 9.31 K/uL (1.4-6.5); Neutrophils % (auto) 81.4 %; Nucleated RBC # (auto) 0.03 K/uL (0-0); Nucleated RBC % (auto) 0.2 %; Platelet Count 205 K/uL (130-400); RDW Coefficient of Variation 15.9 % (11.5-14.5); RDW Standard Deviation 55.6 fL (36.4-46.3); Red Blood Count 3.32 M/uL (4.2-5.4); White Blood Count 11.43 K/uL (4.8-10.8)
--- NOTE | 2019-11-28 18:22 | XRay Report ---
XR chest 1V portable HISTORY: 64 years-old Female weakness acute weakness COMPARISON: Chest radiographs 11/05/2019 TECHNIQUE: Portable AP view of the chest FINDINGS: Cardiac silhouette is enlarged, unchanged. Stable positioning of right IJ [id number] catheter. Ill -defined bibasilar densities are noted with trace right pleural effusion. Pulmonary vascular congesti on. Degenerative changes of the shoulders and spine. IMPRESSION: 1. Cardiomegaly with pulmonary vascular congestion. 2. Ill-defined bibasilar opacities suggest atelectasis or pneumonitis. 3. Trace right pleural effusion. ACT 112: Negative or not required by law. The above report was generated using voice recognition software. It may contain grammatical, syntax o r spelling errors. Electronically signed by: Konrad Vega M.D. 11/28/2019 6:20 PM
[2019-11-28 18:29] LABS: INR 1.6 (0.9-1.1); Prothrombin Time 15.5 Seconds (9.0-12.0)
[2019-11-28] MEDS ORDERED: ONDANSETRON INJ 2 MG/ML 2 ML VIAL ONE (18:30)
[2019-11-28] MEDS ORDERED: ONDANSETRON INJ 2 MG/ML 2 ML VIAL IV STA (18:38)
--- NOTE | 2019-11-28 19:17 | CT Scan Report ---
CT head/brain wo con CLINICAL HISTORY: 64 years-old Female presenting with seizure like activity, h/o Stage IV uterine CA. TECHNIQUE: Multidetector CT imaging of the head was performed without the use of intravenous contrast . IV contrast: None. One or more dose lowering techniques were used consistent with the principles of ALARA (as low as reasonably achievable), including automatic exposure control, mA or kV adjustment t o individual patient size, and/or use of iterative reconstruction. COMPARISON: 12/11/2009. CT DOSE (mGy.cm): The estimated cumulative dose is 1498.35 mGy.cm. FINDINGS: Pharmacy Operations Specialist topogram: Unremarkable. Ventricles and sulci normal in size. No hemorrhage. Brain parenchyma normal in appearance with preser cristal iniguez-white differentiation. No acute territorial infarct. No mass effect or midline shift. No ext ra-axial fluid collection. Crenulated air-fluid level in the right maxillary sinus with complete opac ification of the left maxillary sinus and scattered mucosal thickening in ethmoid air cells. Aerated secretions in a crenulated air-fluid level in the sphenoid sinuses. Lesser degree of aerated secretio ns and mucosal thickening in the left frontal sinus. Calvarium intact. Redemonstration of the scalp n odules, likely epidermal inclusion cysts. IMPRESSION: 1. No acute intracranial abnormality. 2. Extensive acute sinusitis involving the maxillary, sphenoid, and frontal sinuses. ACT 112: Negative or not required by law. Electronically signed by: Tino Kemp M.D. 11/28/2019 7:15 PM
[2019-11-28 20:42] LABS: Albumin Globulin Ratio 0.4 (0.9-2); Albumin Level 2.2 gm/dl (3.4-5.0); BUN Creatinine Ratio 17.9 (10-20); Bilirubin,Total 1.7 mg/dl (0.2-1); Calcium 9.8 mg/dl (8.5-10.1); Creatinine Clr Calc Pharmacy 16.5 ml/min; Est GFR (African American) 12.3; Est GFR (Non-African American) 10.6; Globulin 5.4 gm/dl (2.5-4.0); Thyroid Stimulating Hormone 0.916 uIu/ml (0.300-4.500); Total Protein 7.6 gm/dl (6.4-8.2)
[2019-11-28] MEDS ORDERED: DEXTROSE 50% 50 ML SYRINGE IV ONE (20:48)
[2019-11-28] MEDS ORDERED: SODIUM CHLORIDE 0.9% 1000ML 1,000 ML IV ONE (20:50)
--- NOTE | 2019-11-28 21:00 | Emergency Department Note ---
Entered by Sharlene Douglas acting as a scribe for History of Present Illness General Chief complaint: Seizure Time Seen by Provider: 11/28/19 17:51 Source: patient History of Present Illness Provider complaint: Seizure Onset (ago): hour(s) 1 Location: head Relieved By: + none Exacerbated By: + none Associated symptoms: + cough, + nausea/vomiting (Black vomit) and + other (Loss of consciousness) The patient is a 64 year old female w/ PMHx of chronic respiratory failure secondary to COPD on home oxygen, currently on 6 L; obstructive sleep apnea, CPAP noncompliance; hypertension; hyperlipidemia; mood disorder; diabetes on insulin pump; chronic anemia, baseline hemoglobin around 10; endometrial cancer status post surgery who presents to the ED w/ CC of seizure-like activity beginning about an hour ago. According to EMS, the patient was sitting on the toilet and began having what is believed to be a seizure. The patient states that her symptoms are not relieved nor exacerbated by anything specific. The patient reports experiencing loss of consciousness for about 5 minutes as well as a couple of days of nausea and black vomit. The patient also reports experiencing a cough. The patient notes that she wears 4L of oxygen at home. Home Medications Home Medications Medication Instructions Recorded Confirmed Type atenolol 100 mg PO QAM 10/25/18 11/28/19 History pantoprazole [Protonix] 40 mg PO QAM 10/25/18 11/28/19 History albuterol sulfate [Proventil HFA] 2 puff INHALATION Q4H PRN 12/05/18 11/28/19 History atorvastatin 80 mg PO DAILY 12/05/18 11/28/19 History citalopram [Celexa] 40 mg PO DAILY 12/05/18 11/28/19 History insulin aspart U-100 1 dose CONTINUOUS SUBCUTANEOUS 12/05/18 11/28/19 History INFUSION DIRECTED ondansetron HCl 8 mg PO Q8H PRN 12/05/18 11/28/19 History aspirin 81 mg PO DAILY 06/16/19 11/28/19 History cyclobenzaprine 5 mg PO BID PRN 06/16/19 11/28/19 History Oxygen Home 10/22/19 11/05/19 History trazodone 75 mg PO HS 11/05/19 11/28/19 History docusate sodium [Dulcolax Stool 100 mg PO BID 11/28/19 11/28/19 History Softener (dss)] furosemide 20 mg PO DAILY 11/28/19 11/28/19 History haloperidol lactate 1 mg PO DIRECTED PRN 11/28/19 11/28/19 History lisinopril 20 mg PO DAILY 11/28/19 11/28/19 History prochlorperazine maleate 10 mg PO Q6H PRN 11/28/19 11/28/19 History [Compazine] Allergies Allergy/AdvReac Type Severity Reaction Status Date / Time Sulfa (Sulfonamide Allergy Intermediate HIVES Verified 11/05/19 15:18 Antibiotics) sulfamethoxazole Allergy Intermediate HIVES Verified 11/05/19 15:18 trimethoprim Allergy Intermediate HIVES Verified 11/05/19 15:18 morphine AdvReac Intermediate nausea Verified 11/05/19 15:18 bupropion AdvReac Mild DELIRIUM Verified 11/05/19 15:18 Cephalosporins AdvReac Mild NAUSEA Verified 11/05/19 15:18 metronidazole AdvReac Mild GI UPSET Verified 11/05/19 15:18 nortriptyline AdvReac Mild DELIRIUM Verified 11/05/19 15:18 Quinolones AdvReac Mild VOMITING Verified 11/05/19 15:18 FROM [facility] INTAKE Past Med/Surg History Medical History Abdominal pain (Acute) Abnormal vaginal bleeding (Acute) Acute bronchitis (Acute) Acute on chronic renal failure Acute renal failure superimposed on stage 3 chronic kidney disease Anemia (Resolved) Ascites Asthma (Acute) Chest pain (Acute) CHF (congestive heart failure) (Acute) Cirrhosis CKD (chronic kidney disease), stage III COPD exacerbation (Acute) Dehydration (Acute) Depression Diabetes (Chronic) Discharge planning issues Diverticulitis (Resolved) Dizziness DVT prophylaxis Dyspnea (Acute) History of endometrial cancer Hyperglycemia (Acute) Hypertension (Chronic) Hypoglycemia (Acute) Infection of left eye (Resolved) Injury of left wrist (Acute) Left elbow pain (Resolved) Low back pain (Acute) Low back pain Nausea vomiting and diarrhea Obesity (Acute) Pleural effusion Pleural effusion, left (Acute) Pneumonia (Resolved) Pneumonia Respiratory failure with hypoxia and hypercapnia Right heart failure with preserved right ventricular function Spasm of back muscles (Acute) Subconjunctival hemorrhage (Resolved) Throat irritation (Acute) Urinary tract infection (Acute) Vaginal bleeding (Acute) Vaginal bleeding (Acute) Vertigo Wrist pain, left (Acute) Surgical History History of appendectomy History of cholecystectomy History of hysterectomy Family History Other Family history non-contributory No significant family history Social History Preferred Language: Turkish Communication Ability: Effective Visual Impairment: No Limitations Icu Rn Required: No Beliefs That Will Affect Care: None Current Living Situation: Family Current Living Situation Comment: lives with her daughters Feels Safe at Home: Yes Smoking Status: Former smoker Tobacco Type: cigarettes ; Second Hand Exposure: No ; Hx Alcohol Use: No Hx Substance Use: No Review of Systems See HPI for pertinent positives & negatives. and A total of 10 systems reviewed and were otherwise negative Physical Exam Vital Signs Vital Signs - 24 hr 11/28/19 18:13 11/28/19 19:19 Temperature 36.9 C Temperature Source Oral Pulse Rate 106 H Pulse Rate [Finger] 110 H Respiratory Rate 24 24 Blood Pressure 113/71 Blood Pressure [Left Arm] 115/75 Blood Pressure Mean 85 Blood Pressure Mean [Left Arm] 88 Pulse Oximetry 93 96 Oxygen Delivery Method Nasal Cannula Nasal Cannula Oxygen Flow Rate 4 4 Sepsis Recent Fever Within 48 Hours No Sepsis Action Taken by Nursing No Action Required GENERAL: Well nourished, non-toxic, nasal cannula in place EYE EXAM: Normal conjunctiva. PERRL, no anisocoria and EOM's grossly intact w/o pain. OROPHARYNX: Moist mucous membranes. Grossly normal dentition. NECK: Supple, no nuchal rigidity, no adenopathy, non-tender. No signs of meningismus. LUNGS: Decreased breath sounds bilateral bases. Normal chest wall mechanics. HEART: NSR, no MRG. ABDOMEN: Abdomen distended and soft, non-tender, normo-active bowel sounds, no masses, no rebound or guarding. BACK: No CVA TTP. SKIN: No rashes and no bruising. UPPER EXTREMITIES: Upper extremities are grossly normal. LOWER EXTREMITIES: No pitting edema. No calf pain. NEURO EXAM: A&O x3, cranial nerves II-XII grossly intact, normal speech, moves all 4 extremities on command w/o issue. Course Course 1755: Past medical records reviewed. The patient was evaluated in room A10. A complete history and physical exam was performed. 1756: Continuous Cardiac Monitoring: An order was placed for continuous cardiac monitoring. The monitor shows a rate of 113 with atrial fibrillation. 1838: I reevaluated the patient and she had another episode of vomiting which was hemoccult and was not coffee ground colored. 2100: I spoke with the [facility] Hospitalist, Dr. Perdue about the patient's case and they accepted the patient for further evaluation. Administered Medications Discontinued Medications Sodium Chloride (Nss) 500 mls @ 999 mls/hr IV .Q31M ANTONIO Stop: 11/28/19 18:45 Last Infusion: 11/28/19 19:09 Dose: 0 mls/hr Documented by: [id number] Admin: 11/28/19 18:36 Dose: 999 mls/hr Documented by: [id number] Ondansetron HCl (Zofran) Confirm Administered Dose 4 mg .ROUTE .[facility] Stop: 11/28/19 18:31 Last Admin: 11/28/19 18:36 Dose: 4 mg Documented by: [id number] Ondansetron HCl (Zofran) 4 mg IV NOW STA Stop: 11/28/19 18:39 Last Admin: 11/28/19 18:53 Dose: Not Given Documented by: [id number] Medical Decision Making Differential Diagnosis Differential diagnosis includes etiologies such as infection, hypoglycemia, electrolyte abnormalities, cardiac sources, intracerebral event, trauma, toxicologic, neurologic, as well as others were entertained. Medical Records Attestation: I reviewed the patient's medical records. Home Medications Current Medication List: was personally reviewed by me Laboratory Data Attestation: I reviewed the patient's lab results. Result diagrams: 11/28/19 18:09 11/28/19 19:23 Lab Results 11/28/19 11/28/19 11/28/19 Range/Units 18:03 18:09 18:09 WBC 11.43 H (4.8-10.8) K/uL RBC 3.32 L (4.2-5.4) M/uL Hgb 9.7 L (12.0-16.0) g/dL Hct 32.1 L (37-47) % MCV 96.7 (80-100) fL MCH 29.2 (25-34) pg MCHC 30.2 L (32-36) g/dL RDW Std Deviation 55.6 H (36.4-46.3) fL RDW Coeff of Sheyla 15.9 H (11.5-14.5) % Plt Count 205 (130-400) K/uL MPV 10.0 (7.4-10.4) fL Immature Gran % (Auto) 1.0 % Neut % (Auto) 81.4 % Lymph % (Auto) 9.2 % [place] % (Auto) 8.3 % Eos % (Auto) 0.0 % Baso % (Auto) 0.1 % Immature Gran # (Auto) 0.11 H (0.00-0.02) K/uL Neut # (Auto) 9.31 H (1.4-6.5) K/uL Lymph # (Auto) 1.05 L (1.2-3.4) K/uL [place] # (Auto) 0.95 H (0.11-0.59) K/uL Eos # (Auto) 0.00 (0-0.5) K/uL Baso # (Auto) 0.01 (0-0.2) K/uL Absolute Nucleated RBC 0.03 H (0-0) K/uL Nucleated RBC % (auto) 0.2 % PT 15.5 H (9.0-12.0) Seconds INR 1.6 H (0.9-1.1) Sodium Potassium Chloride Carbon Dioxide Anion Gap BUN Creatinine Est Cr Clr Drug Dosing Est GFR ( Amer) Est GFR (Non-Af Amer) BUN/Creatinine Ratio Glucose POC Glucose 103 H (70-99) mg/dl Calcium Magnesium Total Bilirubin AST ALT Alkaline Phosphatase Total Protein Albumin Globulin Albumin/Globulin Ratio TSH 11/28/19 11/28/19 11/28/19 Range/Units 18:09 19:23 20:42 WBC (4.8-10.8) K/uL RBC (4.2-5.4) M/uL Hgb (12.0-16.0) g/dL Hct (37-47) % MCV (80-100) fL MCH (25-34) pg MCHC (32-36) g/dL RDW Std Deviation (36.4-46.3) fL RDW Coeff of Sheyla (11.5-14.5) % Plt Count (130-400) K/uL MPV (7.4-10.4) fL Immature Gran % (Auto) % Neut % (Auto) % Lymph % (Auto) % [place] % (Auto) % Eos % (Auto) % Baso % (Auto) % Immature Gran # (Auto) (0.00-0.02) K/uL Neut # (Auto) (1.4-6.5) K/uL Lymph # (Auto) (1.2-3.4) K/uL [place] # (Auto) (0.11-0.59) K/uL Eos # (Auto) (0-0.5) K/uL Baso # (Auto) (0-0.2) K/uL Absolute Nucleated RBC (0-0) K/uL Nucleated RBC % (auto) % PT (9.0-12.0) Seconds INR (0.9-1.1) Sodium Cancelled 133 L Potassium Cancelled Chloride Cancelled 69 L Carbon Dioxide Cancelled 47 H* Anion Gap Cancelled 17.0 H BUN Cancelled 74 H Creatinine Cancelled 4.13 H Est Cr Clr Drug Dosing Cancelled 16.5 Est GFR ( Amer) Cancelled 12.3 Est GFR (Non-Af Amer) Cancelled 10.6 BUN/Creatinine Ratio Cancelled 17.9 Glucose Cancelled 49 L* POC Glucose 71 (70-99) mg/dl Calcium Cancelled 9.8 Magnesium Cancelled Total Bilirubin Cancelled 1.7 H AST Cancelled ALT Cancelled 20 Alkaline Phosphatase Cancelled 165 H Total Protein Cancelled 7.6 Albumin Cancelled 2.2 L Globulin Cancelled 5.4 H Albumin/Globulin Ratio Cancelled 0.4 L TSH Cancelled 0.916 Imaging Data Radiologist's Impression: Radiology results as stated below per my review and the radiologist's interpretation: XR chest 1V portable HISTORY: 64 years-old Female weakness acute weakness COMPARISON: Chest radiographs 11/05/2019 TECHNIQUE: Portable AP view of the chest FINDINGS: Cardiac silhouette is enlarged, unchanged. Stable positioning of right IJ [id number] catheter. Ill-defined bibasilar densities are noted with trace right pleural effusion. Pulmonary vascular congestion. Degenerative changes of the shoulders and spine. IMPRESSION: 1. Cardiomegaly with pulmonary vascular congestion. 2. Ill-defined bibasilar opacities suggest atelectasis or pneumonitis. 3. Trace right pleural effusion. ACT 112: Negative or not required by law. The above report was generated using voice recognition software. It may contain grammatical, syntax or spelling errors. Electronically signed by: Konrad Vega M.D. 11/28/2019 6:[address] head/brain wo con CLINICAL HISTORY: 64 years-old Female presenting with seizure like activity, h/o Stage IV uterine CA. TECHNIQUE: Multidetector CT imaging of the head was performed without the use of intravenous contrast. IV contrast: None. One or more dose lowering techniques were used consistent with the principles of ALARA (as low as reasonably achievable), including automatic exposure control, mA or kV adjustment to individual patient size, and/or use of iterative reconstruction. COMPARISON: 12/11/2009. CT DOSE (mGy.cm): The estimated cumulative dose is 1498.35 mGy.cm. 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 Ventricles and sulci normal in size. No hemorrhage. Brain parenchyma normal in appearance with preserved iniguez-white differentiation. No acute territorial infarct. No mass effect or midline shift. No extra-axial fluid collection. Crenulated air-fluid level in the right maxillary sinus with complete opacification of the left maxillary sinus and scattered mucosal thickening in ethmoid air cells. Aerated secretions in a crenulated air-fluid level in the sphenoid sinuses. Lesser degree of aerated secretions and mucosal thickening in the left frontal sinus. Calvarium intact. Redemonstration of the scalp nodules, likely epidermal inclusion cysts. IMPRESSION: 1. No acute intracranial abnormality. 2. Extensive acute sinusitis involving the maxillary, sphenoid, and frontal sinuses. ACT 112: Negative or not required by law. Electronically signed by: Tino Kemp M.D. 11/28/2019 7:15 PM ECG Data Attestation: I personally reviewed and interpreted this ECG as follows: Indication: + other (Seizure) Rate (beats per minute): 113 Rhythm: + atrial fibrillation ECG Intervals/blocks: + Normal QRS; no Normal QT-c (Prolonged QTC) Comparison ECG Date: from (06/16/2019) Change: the following changes noted (Rhythm change) Blood Pressure Blood Pressure Findings: Normal blood pressure Blood Pressure Disposition: further management by hospitalist MDM Narrative The patient is a 64 year old female w/ PMHx of chronic respiratory failure secondary to COPD on home oxygen, currently on 6 L; obstructive sleep apnea, CPAP noncompliance; hypertension; hyperlipidemia; mood disorder; diabetes on insulin pump; chronic anemia, baseline hemoglobin around 10; endometrial cancer status post surgery who presents to the ED w/ CC of seizure-like activity beginning about an hour ago. Patient was seen and evaluated the bedside. There was concern that the patient may have had some seizure-like activity but this is only reported per nursing and EMS. The patient reportedly did have some dark-colored vomitus. The patient currently is awake alert and follows commands. No obvious focal deficits. The patient fortunately is on hospice suffering from stage IV endometrial cancer. The patient is tachycardic and does appear dehydrated. The patient was ordered some IV fluids. The patient fortunately does have ascites as well as pleural effusions. This is likely related to her malignancy. The patient did have a [id number] blood glucose which is greater than 100. Patient did have episode of vomiting. This was checked for blood. This was Hemoccult negative and does not appear like coffee ground emesis. Patient did have a CT of the head which was negative. No obvious masses. The patient did have blood work that was initially hemolyzed and upon recheck patient did have a low blood sugar. This may be related. This patient also does have acute kidney injury. After further discussion with case management to discuss it with family and the hospice agency did discuss the repercussions that they would revoke the hospice and the patient could be admitted. Patient is currently a DNR/DNI. I did speak the on-call hospitalist agreed to further evaluate treat the patient. Patient was did order additional IV fluids and D50. Impression & Plan Hypoglycemia, Vomiting, Syncope, Adenocarcinoma of endometrium, stage 4, MONIE (acute kidney injury) Discharge Plan Visit Data Chief Complaint: Seizure ED Provider: Abdirahman Puentes Discharge Problem: Hypoglycemia, Vomiting, Syncope, Adenocarcinoma of endometrium, stage 4, MONIE (acute kidney injury) Forms Stand Alone Forms: My [facility] Prescriptions Prescriptions: No Action atorvastatin 80 mg Tablet 80 mg PO DAILY RF: 0 citalopram [Celexa] 40 mg Tablet 40 mg PO DAILY RF: 0 ondansetron HCl 8 mg Tablet 8 mg PO Q8H PRN (Reason: Nausea) RF: 0 insulin aspart U-100 100 unit/mL Solution 1 dose Continuous Subcutaneous Infusion DIRECTED RF: 0 albuterol sulfate [Proventil HFA] 90 mcg/actuation Hfa Aerosol Inhaler 2 puff INHALATION Q4H PRN (Reason: Wheezing) RF: 0 aspirin 81 mg Tablet,Delayed Release (Dr/Ec) 81 mg PO DAILY RF: 0 cyclobenzaprine 5 mg Tablet 5 mg PO BID PRN (Reason: Muscle Spasm) RF: 0 atenolol 100 mg Tablet 100 mg PO QAM RF: 0 pantoprazole [Protonix] 40 mg Tablet,Delayed Release (Dr/Ec) 40 mg PO QAM RF: 0 (DME) Oxygen Home Liters Per Minute RF: 0 trazodone 50 mg Tablet 75 mg PO HS RF: 0 furosemide 40 mg tablet 20 mg PO DAILY RF: 0 lisinopril 20 mg Tablet 20 mg PO DAILY RF: 0 prochlorperazine maleate [Compazine] 10 mg Tablet 10 mg PO Q6H PRN (Reason: Nausea) RF: 0 docusate sodium [Dulcolax Stool Softener (dss)] 100 mg Capsule 100 mg PO BID RF: 0 haloperidol lactate 2 mg/mL concentrate 1 mg PO DIRECTED PRN (Reason: Agitation) RF: 0 Referrals Referrals: Hannah Hernandez DO [Primary Care Provider] - Discharge Problem: Vomiting Qualifiers: Vomiting type: unspecified Vomiting Intractability: unspecified Nausea presence: unspecified Qualified Code(s): R11.10 - Vomiting, unspecified Syncope Qualifiers: Syncope type: unspecified Qualified Code(s): R55 - Syncope and collapse The scribe's documentation has been prepared under my direction and personally reviewed by me in its entirety. I confirm that the note above accurately reflects all work, treatment, procedures, and medical decision making performed by me.
[2019-11-28 21:35] LABS: Magnesium 3.2 mg/dl (1.8-2.4); Potassium 2.5 mmol/L (3.5-5.1)
[2019-11-28] MEDS ORDERED: POTASSIUM CHLORIDE 20 MEQ/15 ML UDC PO STA (21:38)
[2019-11-28] MEDS ORDERED: NITROGLYCERIN SL 0.4 MG/TAB TAB SL PRN (23:27)
[2019-11-28] MEDS ORDERED: PIPERACILL/TAZOBAC CONSULT ACTIVE PRN (23:27)
[2019-11-28] MEDS ORDERED: OXYGEN HOME SCH (23:27)
[2019-11-28] MEDS ORDERED: POLYETHYLENE (MIRALAX) 17 GM PACK PO PRN (23:27)
[2019-11-28] MEDS ORDERED: D5NSS + 20MEQ KCL 20 MEQ/1,000 ML BAG IV SCH (23:27)
[2019-11-28] MEDS ORDERED: ALBUTEROL HFA 8 GM INHALER INH PRN (23:27)
[2019-11-28] MEDS ORDERED: LORazepam 1 MG/2 ML VIAL IV PRN (23:27)
[2019-11-28] MEDS ORDERED: PIPERACILLIN/TAZOBACTAM 3.375 GM in DEXTROSE 5% 100 ML IV SCH (23:27)
[2019-11-28] MEDS ORDERED: PIPERACILLIN/TAZOBACTAM 4.5 GM in DEXTROSE 5% 100 ML IV ONE (23:45)
[2019-11-28] MEDS ORDERED: PHARMACY GLYCEMIC MGMT CONSULT PRN (23:56)
--- NOTE | 2019-11-28 23:57 | History and Physical Report ---
DATE OF ADMISSION: 11/28/2019 CHIEF COMPLAINT: Seizure-like episode. HISTORY OF PRESENT ILLNESS: This is a 64-year-old female with past medical history significant for type 2 diabetes; chronic hypoxic respiratory failure, on home oxygen continuous; diabetic polyneuropathy; hyperlipidemia; COPD; hypertension; GERD; history of biliary cirrhosis; chronic kidney disease stage IV, baseline creatinine currently around 2; depression; history of metastatic endometrial cancer, status post surgery, status post robotic-assisted laparoscopic hysterectomy and bilateral salpingo-oophorectomy in 07/11/2014 .On 10/2018 she was admitted. She was found to have bilateral large pleural effusion and ascites, which were drained and cytology came back as metastatic adenocarcinoma. Hem/Onc was started on palliative chemotherapy with paclitaxel and carboplatin. At that time PleurX catheter placed for left pleural effusion, and the PleurX catheter later taken out. Currently, she is on drain for abdominal ascites and she gets drained a couple of times in a week.Last chemo was on april 2019.Chemo was stopped because of low blood count and thrombocytopenia and recently in last week of October, she is in the home hospice with her daughters. She is okay with CPR and meds and shocks, but then don't want to be on artificial ventilation. She is on insulin pump for diabetes. She has history of sleep apnea, but noncompliant with CPAP. . As per daughter, she does not take her medications as supposed to take. Blood sugars are high actually in the morning. In in the evening today, she was sitting on the bed for few seconds and she suddenly seemed to become unresponsive or seemed to be staring and some shaking of the body and daughter think that there is some incontinence of stool. It lasted for about 5 minutes. After she came back, she seemed somewhat confused, but right now in the ER, she is back to her usual self. Hemodynamics are stable, but labs showed blood sugar was low in 40s with dextrose it came up, but she was nauseous and vomiting. There is question of some black vomitus, but Hemoccult was negative. Her hemoglobin is stable at 9.7. Potassium was 2.5. Creatinine was 4.1, baseline is around 2. BUN 74. Bilirubin was 1.7. TSH is 0.9. Currently resting comfortably and hemodynamically stable. Denies any headache. No blurred visions. Has some runny nose, no sore throat. Has some cough and the cough has caused some pain in the ribs. Dry cough. No dysphagia, no odynophagia. Appetite is not that great. Denies any chest pain. No fever, no chills. No shortness of breath. Currently, no abdominal pain. Somewhat constipated. No blood in stools or black stools. Not making much urine. No swelling in the legs, no rash. As per daughter, she is not eating or drinking much since last 2-3 weeks. She ambulates slowly with help of walker. ALLERGIES: SULFA ANTIBIOTICS, CIPRO, FLAGYL, MORPHINE, PAMELOR. PAST MEDICAL HISTORY: As mentioned above. PAST SURGICAL HISTORY: , colonoscopy,destroy lumbar sacral nerve, hysteroscopy, endometrial ablation, robotic laparoscopic hysterectomy with removal of tubes and ovaries, ligation of oviducts, cataract surgeries, cholecystectomy with appendectomy, injection of the sacroiliac joint, wrist arthroscopy bilaterally. MEDICATIONS: The patient is on Colace 100 mg p.o. b.i.d., lisinopril 20 mg p.o. daily, trazodone 100 mg p.o. at bedtime, Protonix 40 mg p.o. daily, albuterol 2 puffs q. 4 hours p.r.n., Flexeril 5 mg p.o. b.i.d. p.r.n., on insulin pump, atenolol 100 mg p.o. daily, Zofran 8 mg po t.i.d. p.r.n., Lasix 20 mg p.o. daily, aspirin 81 mg p.o. daily, Compazine 10 mg p.o. q. 6 hours p.r.n., atorvastatin mg p.o. daily, citalopram 40 mg p.o. daily. FAMILY HISTORY: Significant for mother has arthritis. Sister has arthritis. Maternal cousin has breast cancer. Father has lung cancer. Brother has diabetes. Mother has diabetes. Sister has diabetes. Mother has hypertension. SOCIAL HISTORY: , currently lives with her daughter. Former smoker, quit in 2001. No alcohol use, no drug use. REVIEW OF SYMPTOMS: As per HPI. Rest of review of symptoms negative. PHYSICAL EXAMINATION: GENERAL: The patient is obese, currently not in acute distress. VITAL SIGNS: Temperature 36.9, pulse 104, respiratory rate 24, blood pressure 114/57, oxygen 93 percent on 4 liters. HEENT: No pallor, no icterus. Extraocular muscles intact. NECK: No JVD, no neck masses, no carotid bruits. CARDIOVASCULAR: S1, S2 heard. Regular rate and rhythm. No murmur, no gallop. RESPIRATORY SYSTEM: Normal AP diameter. No accessory muscle use. No wheezing, no crackles. ABDOMEN: Soft, distended, nontender. Drain seen on the right side with dressing, No drainage seen. CENTRAL NERVOUS SYSTEM: Alert and oriented. Obeys commands. Speech clear. Moves extremities. EXTREMITIES: No edema, no erythema. LABORATORY DATA: WBC 11.4, hemoglobin 9.7, hematocrit 32.1, platelets 205. PT 15.5, INR 1.6. Sodium 133, potassium 2.5, chloride 69, bicarb 47, BUN 74, creatinine 4.1, serum glucose 49, calcium 9.8, magnesium 3.2. Total bilirubin 1.7, AST 44, ALT 20, alkaline phosphatase 165. TSH 0.9. Chest x-ray: Cardiomegaly with pulmonary vascular congestion, ill-defined bibasilar opacity suggests atelectasis or pneumonitis, trace right pleural effusion. CT of the head: No acute intracranial abnormality, extensive acute sinusitis involving the maxillary, sphenoid and frontal sinuses. EKG: AFib with a rate of 113, prolonged QT at 559, nonspecific ST abnormality. ASSESSMENT AND PLAN: This is a 64-year-old female who presents with seizure-like activity possibly from hypoglycemia. 1. Seizure-like activity possibly from hypoglycemia. The patient is on insulin pump. Not eating or drinking in last 3 weeks and [address]. CT of the head is unremarkable. We will monitor in the med/surg tele. Will Get EEG and Neuro consult in a.m. 2. Hypoglycemia. We will stop the insulin pump, and placed on D5 normal saline, insulin sliding scale with glycemic pharmacy consult to help with insulin regimen. Close monitor. 3. Hypokalemia. We will replace. Follow the repeat labs. 4. MONIE on chronic kidney disease stage IV. Baseline creatinine of 2, current creatinine of 4.1 possibly from dehydration. Holding lisinopril and Lasix. Gave IV fluids, D5 normal saline with 20 of KCl at 100 mL per hour. We will also follow CT abdomen and pelvis. Follow the response to fluids. If not improving, we will consult Nephrology. 5. Sinusitis in the CAT scan. We will start on IV zosyn. 6. AFib. New onset we will place her on Lopressor p.r.n. INR is 1.6 because of her metastatic cancer. We will get an echocardiogram and consult Cardiology for any other further recommendations. 7. Metastatic endometrial cancer status post surgery and chemo, last chemo was in 03/2019, currently on home hospice. 8. Depression. Continue with Celexa. 9. Hyperlipidemia, on statin. 10. Hypertension. Atenolol. Lasix and lisinopril on hold. We will monitor the blood pressure. 11. Anemia, possibly anemia of chronic disease. We will follow the labs. 12. DVT prophylaxis, SCDs for now. DISPOSITION: Close monitoring in the med/surg tele. CODE STATUS: Conditional code with okay for CPR and medicine and shocks, but no mechanical ventilation. Plan for to discharge back home with hospice care when stable. ARABELLA
[2019-11-29] MEDS ORDERED: PNEUMOCOCCAL POLYSACCHARIDES 25 MCG/0.5 ML VIAL/SYR IM ONE (00:12)
[2019-11-29] MEDS ORDERED: PNEUMOCOCCAL ADMINISTRATION CHARGE ONE (00:12)
[2019-11-29] MEDS: PROMETHAZINE HCL 12.5 MG in SODIUM CHLORIDE 0.9% 50 ML IV PRN ×4 (00:29→22:45)
[2019-11-29] MEDS: POTASSIUM CHLORIDE / WTR 10 MEQ/100 ML PLCT IV SCH ×4 (00:45→03:38)
[2019-11-29] MEDS ORDERED: GLUCAGON FOR INJ 1 MG VIAL SQ PRN (02:00)
[2019-11-29] MEDS ORDERED: GLUCOSE 10 TABS/TUBE PO PRN (02:00)
[2019-11-29] MEDS ORDERED: CARBOHYDRATES FOR HYPOGLYCEMIA PO PRN (02:00)
[2019-11-29] MEDS ORDERED: GLUCOSE 40% GEL 15 GM TUBE PO PRN (02:00)
[2019-11-29] MEDS ORDERED: MICONAZOLE NITRATE POWDER 43 GM EXT PRN (02:20)
[2019-11-29] MEDS ORDERED: LORazepam 0.25 MG/0.5 ML VIAL IV STA (03:13)
[2019-11-29] MEDS: INSULIN ASPART 100 UNITS/ML 3 ML PEN SC SCH ×5 (03:15→21:49)
[2019-11-29] MEDS ORDERED: PROCHLORPERAZINE 5 MG in SYRINGE 4 ML IV ONE (04:07)
[2019-11-29] MEDS: METOPROLOL TARTRATE 1 MG/ML VIAL IV PRN ×2 (05:26→10:15)
[2019-11-29 05:54] LABS: Basophils # (auto) 0.01 K/uL (0-0.2); Basophils % (auto) 0.1 %; Hematocrit (blood only) 28.3 % (37-47); Hemoglobin 8.5 g/dL (12.0-16.0); Immature Granulocytes # (auto) 0.11 K/uL (0.00-0.02); Immature Granulocytes % (auto) 0.6 %; Lymphocytes # (auto) 0.84 K/uL (1.2-3.4); Lymphocytes % (auto) 4.5 %; Mean Corpuscular Hemoglobin 28.5 pg (25-34); Mean Platelet Volume 9.3 fL (7.4-10.4); Monocytes # (auto) 1.25 K/uL (0.11-0.59); Monocytes % (auto) 6.6 %; Neutrophils # (auto) 16.61 K/uL (1.4-6.5); Neutrophils % (auto) 88.2 %; Nucleated RBC # (auto) 0.05 K/uL (0-0); Nucleated RBC % (auto) 0.2 %; Platelet Count 169 K/uL (130-400); RDW Coefficient of Variation 15.9 % (11.5-14.5); RDW Standard Deviation 54.6 fL (36.4-46.3); Red Blood Count 2.98 M/uL (4.2-5.4); White Blood Count 18.82 K/uL (4.8-10.8)
[2019-11-29 05:58] LABS: Estimated Average Glucose 137 mg/dl; Hemoglobin A1C 6.4 % (4.5-5.6)
[2019-11-29 06:38] LABS: BUN Creatinine Ratio 18.5 (10-20); Calcium 8.7 mg/dl (8.5-10.1); Creatinine Clr Calc Pharmacy 15.9 ml/min; Est GFR (African American) 11.9; Est GFR (Non-African American) 10.2
--- NOTE | 2019-11-29 07:35 | CT Scan Report ---
ABDOMEN AND PELVIS CT WITHOUT CONTRAST CT DOSE: 1973.14 mGy.cm HISTORY: Ascites. Acute kidney injury. TECHNIQUE: Multiaxial CT images of the abdomen and pelvis were performed without contrast. A dose lo wering technique was utilized adhering to the principles of ALARA. COMPARISON STUDY: Abdomen and pelvis CT 10/08/2019. FINDINGS: Calcified right hilar lymph node and a calcified granuloma within the right lung base. Patc hy bibasilar airspace opacities are noted. A small right pleural effusion remains unchanged. Cholecys tectomy. Subtle nodular contour to the liver consistent with cirrhosis. Calcified granulomas again no delon within the spleen. The pancreas, kidneys, and adrenal glands are unremarkable. Moderate hiatus he rnia. Mildly enlarged gastrohepatic lymph nodes remain stable. Scattered soft tissue nodularity withi n the omentum and peritoneal linings persists and is consistent with peritoneal carcinomatosis. Moder ate ascites has progressed. There is subcutaneous edema within the lower anterior abdominal wall, unc hanged. Normal bladder. The uterus is surgically absent. No retroperitoneal lymphadenopathy. No dilat ed loops of bowel to suggest an obstruction. Colonic diverticulosis. A few prominent mesenteric lymph nodes remain unchanged. A right lower quadrant peritoneal catheter terminates in the left lower quad rant. IMPRESSION: 1. Interval progression of the moderate abdominal ascites. 2. No change in the small right pleural effusion. 3. Patchy bibasilar airspace opacities have developed in the interval. This could represent pneumonia or pulmonary edema. 4. Peritoneal carcinomatosis is again noted. 5. Cirrhotic liver. 6. Mildly enlarged upper abdominal and mesenteric lymph nodes remain unchanged. 7. A peritoneal misti ter terminates in left lower quadrant. ACT 112: Negative or not required by law. Electronically signed by: Simba Nevarez M.D. 11/29/2019 7:34 AM
[2019-11-29] MEDS: PIPERACILLIN/TAZOBACTAM 4.5 GM in DEXTROSE 5% 100 ML IV SCH ×2 (08:14→20:11)
[2019-11-29] MEDS ORDERED: INSULIN HUMAN NPH SC SCH (08:30)
[2019-11-29 08:32] LABS: Magnesium 2.8 mg/dl (1.8-2.4); Potassium 3.6 mmol/L (3.5-5.1)
--- NOTE | 2019-11-29 08:59 | Hospitalist Progress Note ---
Date of Service November 29, 2019 Subjective Prolonged QT. Follow repeat ekg. Avoid Qt prolonging drugs. Results & Data ([facility]) Vital Signs (Past 12 Hours) Vital Signs Temp Pulse Pulse Resp BP BP Pulse Ox 11/29/19 07:23 108 H 11/29/19 06:57 37.1 C 113 H 19 116/77 93 11/29/19 02:47 36.3 C L 116 H 18 106/70 96 11/29/19 02:39 89 L 11/29/19 01:35 103 H 20 90 11/29/19 01:29 114 H 11/29/19 00:00 36.3 C L 111 H 20 127/82 93 11/28/19 22:23 109 H 20 135/75 90 11/28/19 22:00 108 H 17 11/28/19 21:30 101 H 19 97 11/28/19 21:17 114/57 L 11/28/19 21:16 102 H 23 114/57 L 11/28/19 21:15 108 H 21 11/28/19 21:11 104 H 24 93 11/28/19 21:00 113 H 16 95
[2019-11-29] MEDS: NSS + 20MEQ KCL 20 MEQ/1,000 ML BAG IV SCH (09:17)
--- NOTE | 2019-11-29 09:20 | Electroencephalogram ---
EEG Procedure Note Date of Service November 29, 2019 Start / End Times Start Time: 714 End Time: [address] Perdue History Seizure-like episode in a woman with multiple medical problems including diabetes on insulin pump with several days of poor caloric intake and documented hypoglycemia. Question seizure versus hypoglycemic event Home Medication List Home Medications Medication Instructions Recorded Confirmed Type atenolol 100 mg PO QAM 10/25/18 11/28/19 History pantoprazole [Protonix] 40 mg PO QAM 10/25/18 11/28/19 History albuterol sulfate [Proventil HFA] 2 puff INHALATION Q4H PRN 12/05/18 11/28/19 History atorvastatin 80 mg PO DAILY 12/05/18 11/28/19 History citalopram [Celexa] 40 mg PO DAILY 12/05/18 11/28/19 History insulin aspart U-100 1 dose CONTINUOUS SUBCUTANEOUS 12/05/18 11/28/19 History INFUSION DIRECTED ondansetron HCl 8 mg PO Q8H PRN 12/05/18 11/28/19 History aspirin 81 mg PO DAILY 06/16/19 11/28/19 History cyclobenzaprine 5 mg PO BID PRN 06/16/19 11/28/19 History Oxygen Home 10/22/19 11/05/19 History trazodone 75 mg PO HS 11/05/19 11/28/19 History docusate sodium [Dulcolax Stool 100 mg PO BID 11/28/19 11/28/19 History Softener (dss)] furosemide 20 mg PO DAILY 11/28/19 11/28/19 History haloperidol lactate 1 mg PO DIRECTED PRN 11/28/19 11/28/19 History lisinopril 20 mg PO DAILY 11/28/19 11/28/19 History prochlorperazine maleate 10 mg PO Q6H PRN 11/28/19 11/28/19 History [Compazine] Inpatient Medication List Promethazine HCl 12.5 mg/ (Sodium Chloride) 50.5 mls @ 202 mls/hr IV Q6H PRN PRN Reason: Nausea And Vomiting Stop: 12/28/19 23:26 Last Infusion: 11/29/19 07:56 Dose: 0 mls/hr Documented by: [id number] Admin: 11/29/19 07:40 Dose: 202 mls/hr Documented by: [id number] Infusion: 11/29/19 00:48 Dose: 0 mls/hr Documented by: [id number] Admin: 11/29/19 00:29 Dose: 202 mls/hr Documented by: [id number] Piperacillin Sod/Tazobactam (Sod 4.5 gm/ Dextrose) 120 mls @ 30 mls/hr IV Q12H [facility]; Protocol Stop: 12/09/19 07:59 Last Admin: 11/29/19 08:14 Dose: 30 mls/hr Documented by: [id number] Insulin Aspart (Novolog Flexpen) 0 units SC ACHS ANTONIO Stop: 12/29/19 03:59 Last Admin: 11/29/19 08:09 Dose: 15 units Documented by: [id number] Cosigned by: [id number] Admin: 11/29/19 03:15 Dose: 6 units Documented by: [id number] Cosigned by: [id number] Metoprolol Tartrate (Lopressor) 2.5 mg IV Q4 PRN PRN Reason: Tachycardia Stop: 12/28/19 23:26 Last Admin: 11/29/19 05:26 Dose: 2.5 mg Documented by: [id number] Discontinued Medications Dextrose (Dextrose 50%) 50 ml IV NOW ONE Stop: 11/28/19 20:49 Last Admin: 11/28/19 21:06 Dose: 50 ml Documented by: [id number] Sodium Chloride (Nss) 500 mls @ 999 mls/hr IV .Q31M [facility] Stop: 11/28/19 18:45 Last Infusion: 11/28/19 19:09 Dose: 0 mls/hr Documented by: [id number] Admin: 11/28/19 18:36 Dose: 999 mls/hr Documented by: [id number] Sodium Chloride (Nss 1000ml) 1,000 mls @ 999 mls/hr IV .Q1H1M ONE Stop: 11/28/19 21:50 Last Infusion: 11/28/19 22:02 Dose: 0 mls/hr Documented by: [id number] Admin: 11/28/19 21:07 Dose: 999 mls/hr Documented by: [id number] Potassium Chloride/Dextrose/Sod Cl (D5nss + 20meq Kcl) 20 meq in 1,000 mls @ 50 mls/hr IV .Q20H [facility] Stop: 12/28/19 23:26 Last Infusion: 11/29/19 08:16 Dose: 0 mls/hr Documented by: [id number] Infusion: 11/29/19 04:00 Dose: 50 mls/hr Documented by: [id number] Admin: 11/29/19 00:25 Dose: 100 mls/hr Documented by: [id number] Potassium Chloride (K Mateo / Wtr) 10 meq in 100 mls @ 100 mls/hr IV Q1H [facility] Stop: 11/29/19 03:26 Last Infusion: 11/29/19 04:39 Dose: 0 mls/hr Documented by: [id number] Admin: 11/29/19 03:38 Dose: 100 mls/hr Documented by: [id number] Infusion: 11/29/19 03:38 Dose: 100 mls/hr Documented by: [id number] Admin: 11/29/19 02:45 Dose: 100 mls/hr Documented by: [id number] Infusion: 11/29/19 02:36 Dose: 100 mls/hr Documented by: [id number] Admin: 11/29/19 01:36 Dose: 100 mls/hr Documented by: [id number] Infusion: 11/29/19 01:36 Dose: 100 mls/hr Documented by: [id number] Admin: 11/29/19 00:45 Dose: 100 mls/hr Documented by: [id number] Piperacillin Sod/Tazobactam (Sod 4.5 gm/ Dextrose) 120 mls @ 200 mls/hr IV NOW ONE; Protocol Stop: 11/29/19 00:20 Last Infusion: 11/29/19 01:44 Dose: 0 mls/hr Documented by: [id number] Infusion: 11/29/19 01:05 Dose: 200 mls/hr Documented by: [id number] Infusion: 11/29/19 00:46 Dose: 0 mls/hr Documented by: [id number] Admin: 11/29/19 00:46 Dose: 200 mls/hr Documented by: [id number] Lorazepam (Ativan) 0.25 mg in 0.5 mls @ 0.5 mls/min IV NOW STA Stop: 11/29/19 03:14 Last Admin: 11/29/19 04:10 Dose: 0.5 mls/min Documented by: [id number] Prochlorperazine 5 mg/ Syringe 5 mls @ 5 mls/min IV ONE ONE Stop: 11/29/19 04:08 Last Admin: 11/29/19 05:19 Dose: 5 mls/min Documented by: [id number] Ondansetron HCl (Zofran) Confirm Administered Dose 4 mg .ROUTE .STK-MED ONE Stop: 11/28/19 18:31 Last Admin: 11/28/19 18:36 Dose: 4 mg Documented by: [id number] Ondansetron HCl (Zofran) 4 mg IV NOW STA Stop: 11/28/19 18:39 Last Admin: 11/28/19 18:53 Dose: Not Given Documented by: [id number] Potassium Chloride (Kyleigh Ciel Elix) 40 meq PO NOW STA Stop: 11/28/19 21:39 Last Admin: 11/28/19 22:01 Dose: 40 meq Documented by: [id number] Description This is a 21 electrode EEG with a single channel dedicated to limited EKG. The electrodes were placed in accordance with the International 10-20 system This EEG was obtained during wakefulness with simultaneous video analysis of patient movement and behavior. Photic stimulation was performed. Drowsiness and light sleep are not recorded. None of these conditions there is evidence for background rhythm in the upper theta range at 7 to at most 8 Hz and maximum frequency and generally running between 6 and 7 Hz. This is maximum and posterior head regions, is bilaterally symmetrical and is of up to 20 to 30 V in amplitude. Polymorphic mid to lower frequency modest amplitude theta activity intermixed with some waveforms in the delta range of nonrhythmic type is seen in a symmetrical fashion over the central regions without any lateralizing predominance. No rhythmic theta activity is noted. Beta activity is seen bifrontally and symmetrically Photic stimulation provokes no significant driving response and no photo myogenic a photoparoxysmal component is seen No time during the recording is or evidence for potentially epileptogenic activity for polyspike or spike-wave burst, focal sharp waves, focal spikes are reviewed while rhythmic runs of theta or delta activity Interpretation This EEG is mildly diffusely abnormal in a nonspecific fashion without any lateralizing features and without any potentially epileptogenic components Clinical Correlation This EEG is consistent with a mild nonspecific generalized nonfocal encephalopathy without any recorded potentially epileptogenic patterns. The absence of the latter unfortunately does not exclude the diagnosis of seizure disorder. The cause of the encephalopathy cannot be established on the basis of the EEG but may also correlate with protracted hypoglycemia. Clinical correlation is required. Cj Tillman MD
[2019-11-29] MEDS: PANTOprazole 40 MG TAB PO SCH ×2 (09:44→09:54)
[2019-11-29] MEDS: DOCUSATE SODIUM 100 MG CAP PO SCH ×2 (09:44→21:48)
[2019-11-29] MEDS: ASPIRIN 81 MG ECTAB PO SCH ×2 (09:44→09:55)
[2019-11-29] MEDS: ATORVASTATIN 40 MG TAB PO SCH ×2 (09:44→09:55)
[2019-11-29] MEDS: CITALOPRAM 40 MG TAB PO SCH ×2 (09:44→09:54)
[2019-11-29] MEDS: ATENOLOL 50 MG TABLET PO SCH ×2 (09:45→09:53)
[2019-11-29] MEDS ORDERED: PANTOprazole 80 MG in DEXTROSE 5% 100 ML IV ONE (12:15)
[2019-11-29] MEDS: PANTOprazole 40 MG in DEXTROSE 5% 100 ML IV SCH ×3 (13:05→22:19)
--- NOTE | 2019-11-29 14:02 | Electrocardiogram Report ---
Test Reason : Blood Pressure : / mmHG Vent. Rate : 113 BPM Atrial Rate : 110 BPM P-R Int : 000 ms QRS Dur : 092 ms QT Int : 408 ms P-R-T Axes : 000 -06 094 degrees QTc Int : 559 ms Poor data quality, interpretation may be adversely affected Sinus tachycardia with frequent Premature atrial complexes Premature ventricular complexes Low voltage QRS Nonspecific ST and T wave abnormality Prolonged QT Abnormal ECG When compared with ECG of 16-JUN-2019 15:44, Vent. rate has increased BY 46 BPM T wave inversion no longer evident in Anterior leads T wave inversion now evident in Lateral leads Confirmed by Scottie Mcnamara ([id number]) on 11/29/2019 2:01:58 PM Referred By: REFERRED SELF Confirmed By:Scottie Mcnamara
--- NOTE | 2019-11-29 15:11 | Pharmacy Report ---
Glycemic Control Consultation - Date of Service November 29, 2019 - Scope Scope: Glycemic Pharmacist consulted by Dr Perdue on 11/29/19 for glycemic control and to write orders per [facility] inpatient glycemic control protocol - Objective Weight: 112.7 kg Accuchecks BSG (last 24hrs): 11/28/19 11/28/19 11/28/19 18:03 18:09 19:23 Glucose Cancelled 49 L* POC Glucose 103 H 11/28/19 11/28/19 11/28/19 20:42 21:59 23:20 Glucose POC Glucose 71 141 H 169 H 11/29/19 11/29/19 11/29/19 03:13 05:46 07:39 Glucose 267 H POC Glucose 312 H* 315 H* 11/29/19 11/29/19 10:39 11:32 Glucose POC Glucose 321 H* 261 H Laboratory Data (last 24hrs): 11/28/19 11/28/19 11/28/19 18:09 19:23 21:00 Potassium Cancelled 2.5 L* Carbon Dioxide Cancelled 47 H* Anion Gap Cancelled 17.0 H Creatinine Cancelled 4.13 H Est Cr Clr Drug Dosing Cancelled 16.5 11/29/19 11/29/19 05:46 07:56 Potassium 3.6 D Carbon Dioxide 48 H* Anion Gap 15.0 H Creatinine 4.26 H Est Cr Clr Drug Dosing 15.9 HbA1c: Hemoglobin A1c 6.4 % (4.5-5.6) H 11/29/19 05:46 - Recent Pertinent Medications Outpatient Anti-diabetic Regimen: * Novolog pump * A1c = 6.4 % (11/29/19) * Unable to obtain pump setting due to patient confusion today * Pump settings 11/2018: * Basal rates 4-6 units/hr (121.5 units/day) * CR: 1 unit per 2 g of CHO * CF: 10 * Of note patient required far less insulin while inpatient during that time - Assessment & Plan Assessment & Plan: ASSESSMENT: * SC is a 64 year old female admitted to [facility] for seizure-like activity vs. hypoglycemic event * BSG on presentation of 49 mg/dL - Patient given D50% at that time and then started on D5NS with 20 mEq of K+ at 50 mL/hr, which ran until 0800 this morning * Pertinent PMH includes type 2 DM, CKD stage IV, and metastatic endometrial cancer * Patient now receiving NS with 20 mEq of K+ at 50 mL/hr * Will base initial insulin doses on previous admission data * Patient ordered clear liquid diet and has had intermittent coffee ground emesis * No documented PO intake so far today * Limited recent PO intake as an outpatient * Patient has been under outpatient Hospice for approximately 9 days - expectation is to resume this upon discharge PLAN FOR INPATIENT GLYCEMIC CONTROL: * Holding insulin pump at this time * Basal insulin * NPH 20 units SQ given this morning x 1 * NPH 20-30 units BIDM starting this evening (see EHR for details) * Bolus insulin * NovoLog per scale ACHS or Q6hrs while NPO * Goal Range: Low 110 mg/dL - High 140 mg/dL * Correction Factor: 12 mg/dL/unit * Nutritional / Prandial insulin per carb ratio of 1 unit per 3 grams CHO consumed * 0200 check with same parameters * Please note that the plan above was derived based on current level of insulin resistance and hospital stress. These recommendations are appropriate for inpatient admission only. Plan of care upon discharge will need to be reassessed to avoid potential outpatient hypo/hyperglycemia. Thank you.
--- NOTE | 2019-11-29 15:20 | Neurology Consultation ---
Date of Consultation November 29, 2019 Assessment & Plan (1) Seizure-like activity: 1. continue to observe 2. CT head no acute findings 3. may have been a low glucose event 4. EEG- no seizure activity 5. if recurrence if able MRI without contrast 6. primary team for further medical management 7. no further neurologic intervention at this time (2) MONIE (acute kidney injury): (3) Hypoglycemia: Supervising Physician Co-Signing Physician Notes I have seen and discussed above patient with Dr Cj Tillman, neurology I reviewed the above case and examined the patient as best I can and discussed the above findings and impressions with Elyssa Amezcua PA-C in addition to reviewing the pertinent laboratory studies, points of the past medical history, and imaging studies There is somebody mitigating circumstances here that I really hesitate to call this a truly epileptic seizure. There were some convulsive-like movements but her glucose level may have been much lower than the 40 range that it was when she arrived, the EEG shows only some generalized slowing, imaging studies despite her known carcinoma show no structural disease of significance and specifically no evidence for metastatic deposit so at this point I think are quite safe to manage her glucose levels without the insulin pump monitor carefully and if indeed we do see evidence for seizure activity in the setting of normal or reasonable glucose control that we may empirically place her on Keppra Exam was very difficult today as she was somnolent then upon awakening was vomiting and had only very gross motor movements which appeared to be symmetrical, no convulsive activity, grossly intact cranial nerves and even spoke in a fairly clear matter but then drifted back off to sleep and was engaged in attempting to vomit I will check back with her tomorrow and see if I can get a more reasonable exam perhaps a little better history is when I have is a little disjointed and inconsistent Cj Tillman MD History of Present Illness Reason for Consultation: seizure? Requesting Physician: Laura Dias MD Attending Physician: Laura Dias MD History of Present Illness Denise is a 64 year old female with PMH-DM 2, chronic hypoxic respiratory failure on home oxygen continuous; diabetic polyneuropathy; hyperlipidemia; COPD, HTN GERD; history of biliary cirrhosis; CKD IV, baseline creatinine currently around 2; depression;metastatic endometrial cancer, status post surgery, status post robotic-assisted laparoscopic hysterectomy and bilateral salpingo-oophorectomy in 07/11/2014 .On 10/2018 and now is diagnosed with metastatic adenocarcinoma. Hem/Onc was started on palliative chemotherapy with paclitaxel and carboplatin. She has an abdominal drain for ascites gets it drained a couple of times in a week. Her last chemo was on .Chemo was stopped because of low blood count and thrombocytopenia and recently in last week of October, she is in the home hospice with her daughters. She does not take her medications as ordered. She was sitting on the commode for few seconds and she suddenly seemed to become unresponsive or seemed to be staring and some shaking of the body and daughter think that there is some incontinence of stool for about 5 minutes. In the ED her blood sugar was low in 40s with dextrose it came up, but she was nauseous and vomiting. She is currently sleeping and does not open her eyes is moving spontaneously. no ROS due to sleeping. Allergies Allergy/AdvReac Type Severity Reaction Status Date / Time Sulfa (Sulfonamide Allergy Intermediate HIVES Verified 11/05/19 15:18 Antibiotics) sulfamethoxazole Allergy Intermediate HIVES Verified 11/05/19 15:18 trimethoprim Allergy Intermediate HIVES Verified 11/05/19 15:18 morphine AdvReac Intermediate nausea Verified 11/05/19 15:18 bupropion AdvReac Mild DELIRIUM Verified 11/05/19 15:18 Cephalosporins AdvReac Mild NAUSEA Verified 11/05/19 15:18 metronidazole AdvReac Mild GI UPSET Verified 11/05/19 15:18 nortriptyline AdvReac Mild DELIRIUM Verified 11/05/19 15:18 Quinolones AdvReac Mild VOMITING Verified 11/05/19 15:18 FROM CIPRO INTAKE Home Medications Home Medications Medication Instructions Recorded Confirmed Type atenolol 100 mg PO QAM 10/25/18 11/28/19 History pantoprazole [Protonix] 40 mg PO QAM 10/25/18 11/28/19 History albuterol sulfate [Proventil HFA] 2 puff INHALATION Q4H PRN 12/05/18 11/28/19 History atorvastatin 80 mg PO DAILY 12/05/18 11/28/19 History citalopram [Celexa] 40 mg PO DAILY 12/05/18 11/28/19 History insulin aspart U-100 1 dose CONTINUOUS SUBCUTANEOUS 12/05/18 11/28/19 History INFUSION DIRECTED ondansetron HCl 8 mg PO Q8H PRN 12/05/18 11/28/19 History aspirin 81 mg PO DAILY 06/16/19 11/28/19 History cyclobenzaprine 5 mg PO BID PRN 06/16/19 11/28/19 History Oxygen Home 10/22/19 11/05/19 History trazodone 75 mg PO HS 11/05/19 11/28/19 History docusate sodium [Dulcolax Stool 100 mg PO BID 11/28/19 11/28/19 History Softener (dss)] furosemide 20 mg PO DAILY 11/28/19 11/28/19 History haloperidol lactate 1 mg PO DIRECTED PRN 11/28/19 11/28/19 History lisinopril 20 mg PO DAILY 11/28/19 11/28/19 History prochlorperazine maleate 10 mg PO Q6H PRN 11/28/19 11/28/19 History [Compazine] Patient History Medical History Abdominal pain (Acute) Abnormal vaginal bleeding (Acute) Acute bronchitis (Acute) Acute on chronic renal failure Acute renal failure superimposed on stage 3 chronic kidney disease Anemia (Resolved) Ascites Asthma (Acute) Chest pain (Acute) CHF (congestive heart failure) (Acute) Cirrhosis CKD (chronic kidney disease), stage III COPD exacerbation (Acute) Dehydration (Acute) Depression Diabetes (Chronic) Discharge planning issues Diverticulitis (Resolved) Dizziness DVT prophylaxis Dyspnea (Acute) History of endometrial cancer Hyperglycemia (Acute) Hypertension (Chronic) Hypoglycemia (Acute) Infection of left eye (Resolved) Injury of left wrist (Acute) Left elbow pain (Resolved) Low back pain (Acute) Low back pain Nausea vomiting and diarrhea Obesity (Acute) Pleural effusion Pleural effusion, left (Acute) Pneumonia (Resolved) Pneumonia Respiratory failure with hypoxia and hypercapnia Right heart failure with preserved right ventricular function Spasm of back muscles (Acute) Subconjunctival hemorrhage (Resolved) Throat irritation (Acute) Urinary tract infection (Acute) Vaginal bleeding (Acute) Vaginal bleeding (Acute) Vertigo Wrist pain, left (Acute) Surgical History History of appendectomy History of cholecystectomy History of hysterectomy Family History Other Family history non-contributory No significant family history Social History Preferred Language: Korean Communication Ability: Effective Visual Impairment: No Limitations Counter Professional Required: No Beliefs That Will Affect Care: None marital status: Unknown Current Living Situation: Family Current Living Situation Comment: lives with her daughters Feels Safe at Home: Yes Smoking Status: Former smoker Tobacco Type: cigarettes ; Second Hand Exposure: No ; Hx Alcohol Use: No Hx Substance Use: No Physical Exam Physical Exam: Gen: sleeping refusing to open eyes lungs course breath sounds CV RRR abdomen with ascites bilateral reflexes decreased no clonus pupils equal pinpoint and reactive no visible tongue laceration neck supple Results & Data Vital Signs (Past 12 Hours) Vital Signs Temp Pulse Pulse Resp BP BP Pulse Ox 11/29/19 15:09 103 H 11/29/19 11:39 36.7 C 73 20 119/80 11/29/19 10:15 122 H 123/80 11/29/19 07:23 108 H 11/29/19 06:57 37.1 C 113 H 19 116/77 93 Laboratory Results Abnormal lab results 11/28/19 11/28/19 11/28/19 Range/Units 18:03 18:09 18:09 WBC 11.43 H (4.8-10.8) K/uL RBC 3.32 L (4.2-5.4) M/uL Hgb 9.7 L (12.0-16.0) g/dL Hct 32.1 L (37-47) % MCHC 30.2 L (32-36) g/dL RDW Std Deviation 55.6 H (36.4-46.3) fL RDW Coeff of Sheyla 15.9 H (11.5-14.5) % Immature Gran # (Auto) 0.11 H (0.00-0.02) K/uL Neut # (Auto) 9.31 H (1.4-6.5) K/uL Lymph # (Auto) 1.05 L (1.2-3.4) K/uL Grady # (Auto) 0.95 H (0.11-0.59) K/uL Absolute Nucleated RBC 0.03 H (0-0) K/uL PT 15.5 H (9.0-12.0) Seconds INR 1.6 H (0.9-1.1) Sodium (136-145) mmol/L Potassium (3.5-5.1) mmol/L Chloride (98-107) mmol/L Carbon Dioxide (21-32) mmol/L Anion Gap (3-11) BUN (7-18) mg/dl Creatinine (0.6-1.2) mg/dl Glucose (70-99) mg/dl POC Glucose 103 H (70-99) mg/dl Hemoglobin A1c (4.5-5.6) % Magnesium (1.8-2.4) mg/dl Total Bilirubin (0.2-1) mg/dl AST (15-37) U/L Alkaline Phosphatase (45-117) U/L Albumin (3.4-5.0) gm/dl Globulin (2.5-4.0) gm/dl Albumin/Globulin Ratio (0.9-2) 11/28/19 11/28/19 11/28/19 Range/Units 19:23 21:00 21:59 WBC (4.8-10.8) K/uL RBC (4.2-5.4) M/uL Hgb (12.0-16.0) g/dL Hct (37-47) % MCHC (32-36) g/dL RDW Std Deviation (36.4-46.3) fL RDW Coeff of Sheyla (11.5-14.5) % Immature Gran # (Auto) (0.00-0.02) K/uL Neut # (Auto) (1.4-6.5) K/uL Lymph # (Auto) (1.2-3.4) K/uL Grady # (Auto) (0.11-0.59) K/uL Absolute Nucleated RBC (0-0) K/uL PT (9.0-12.0) Seconds INR (0.9-1.1) Sodium 133 L (136-145) mmol/L Potassium 2.5 L* (3.5-5.1) mmol/L Chloride 69 L (98-107) mmol/L Carbon Dioxide 47 H* (21-32) mmol/L Anion Gap 17.0 H (3-11) BUN 74 H (7-18) mg/dl Creatinine 4.13 H (0.6-1.2) mg/dl Glucose 49 L* (70-99) mg/dl POC Glucose 141 H (70-99) mg/dl Hemoglobin A1c (4.5-5.6) % Magnesium 3.2 H (1.8-2.4) mg/dl Total Bilirubin 1.7 H (0.2-1) mg/dl AST 44 H (15-37) U/L Alkaline Phosphatase 165 H (45-117) U/L Albumin 2.2 L (3.4-5.0) gm/dl Globulin 5.4 H (2.5-4.0) gm/dl Albumin/Globulin Ratio 0.4 L (0.9-2) 11/28/19 11/29/19 11/29/19 Range/Units 23:20 03:13 05:46 WBC 18.82 H (4.8-10.8) K/uL RBC 2.98 L (4.2-5.4) M/uL Hgb 8.5 L (12.0-16.0) g/dL Hct 28.3 L (37-47) % MCHC 30.0 L (32-36) g/dL RDW Std Deviation 54.6 H (36.4-46.3) fL RDW Coeff of Sheyla 15.9 H (11.5-14.5) % Immature Gran # (Auto) 0.11 H (0.00-0.02) K/uL Neut # (Auto) 16.61 H (1.4-6.5) K/uL Lymph # (Auto) 0.84 L (1.2-3.4) K/uL Grady # (Auto) 1.25 H (0.11-0.59) K/uL Absolute Nucleated RBC 0.05 H (0-0) K/uL PT (9.0-12.0) Seconds INR (0.9-1.1) Sodium (136-145) mmol/L Potassium (3.5-5.1) mmol/L Chloride (98-107) mmol/L Carbon Dioxide (21-32) mmol/L Anion Gap (3-11) BUN (7-18) mg/dl Creatinine (0.6-1.2) mg/dl Glucose (70-99) mg/dl POC Glucose 169 H 312 H* (70-99) mg/dl Hemoglobin A1c (4.5-5.6) % Magnesium (1.8-2.4) mg/dl Total Bilirubin (0.2-1) mg/dl AST (15-37) U/L Alkaline Phosphatase (45-117) U/L Albumin (3.4-5.0) gm/dl Globulin (2.5-4.0) gm/dl Albumin/Globulin Ratio (0.9-2) 11/29/19 11/29/19 11/29/19 Range/Units 05:46 05:46 07:39 WBC (4.8-10.8) K/uL RBC (4.2-5.4) M/uL Hgb (12.0-16.0) g/dL Hct (37-47) % MCHC (32-36) g/dL RDW Std Deviation (36.4-46.3) fL RDW Coeff of Sheyla (11.5-14.5) % Immature Gran # (Auto) (0.00-0.02) K/uL Neut # (Auto) (1.4-6.5) K/uL Lymph # (Auto) (1.2-3.4) K/uL Grady # (Auto) (0.11-0.59) K/uL Absolute Nucleated RBC (0-0) K/uL PT (9.0-12.0) Seconds INR (0.9-1.1) Sodium 133 L (136-145) mmol/L Potassium (3.5-5.1) mmol/L Chloride 70 L (98-107) mmol/L Carbon Dioxide 48 H* (21-32) mmol/L Anion Gap 15.0 H (3-11) BUN 79 H (7-18) mg/dl Creatinine 4.26 H (0.6-1.2) mg/dl Glucose 267 H (70-99) mg/dl POC Glucose 315 H* (70-99) mg/dl Hemoglobin A1c 6.4 H (4.5-5.6) % Magnesium (1.8-2.4) mg/dl Total Bilirubin (0.2-1) mg/dl AST (15-37) U/L Alkaline Phosphatase (45-117) U/L Albumin (3.4-5.0) gm/dl Globulin (2.5-4.0) gm/dl Albumin/Globulin Ratio (0.9-2) 11/29/19 11/29/19 11/29/19 Range/Units 07:56 10:39 11:32 WBC (4.8-10.8) K/uL RBC (4.2-5.4) M/uL Hgb (12.0-16.0) g/dL Hct (37-47) % MCHC (32-36) g/dL RDW Std Deviation (36.4-46.3) fL RDW Coeff of Sheyla (11.5-14.5) % Immature Gran # (Auto) (0.00-0.02) K/uL Neut # (Auto) (1.4-6.5) K/uL Lymph # (Auto) (1.2-3.4) K/uL Grady # (Auto) (0.11-0.59) K/uL Absolute Nucleated RBC (0-0) K/uL PT (9.0-12.0) Seconds INR (0.9-1.1) Sodium (136-145) mmol/L Potassium (3.5-5.1) mmol/L Chloride (98-107) mmol/L Carbon Dioxide (21-32) mmol/L Anion Gap (3-11) BUN (7-18) mg/dl Creatinine (0.6-1.2) mg/dl Glucose (70-99) mg/dl POC Glucose 321 H* 261 H (70-99) mg/dl Hemoglobin A1c (4.5-5.6) % Magnesium 2.8 H (1.8-2.4) mg/dl Total Bilirubin (0.2-1) mg/dl AST (15-37) U/L Alkaline Phosphatase (45-117) U/L Albumin (3.4-5.0) gm/dl Globulin (2.5-4.0) gm/dl Albumin/Globulin Ratio (0.9-2) Diagnostic Findings This EEG is consistent with a mild nonspecific generalized nonfocal encephalopathy without any recorded potentially epileptogenic patterns. The absence of the latter unfortunately does not exclude the diagnosis of seizure disorder. The cause of the encephalopathy cannot be established on the basis of the EEG but may also correlate with protracted hypoglycemia. Clinical correlation is required. CT abdomen/pelvis-. Interval progression of the moderate abdominal ascites. No change in the small right pleural effusion. Patchy bibasilar airspace opacities have developed in the interval. This could represent pneumonia or pulmonary edema. Peritoneal carcinomatosis is again noted. Cirrhotic liver. Mildly enlarged upper abdominal and mesenteric lymph nodes remain unchanged. . A peritoneal catheter terminates in left lower quadrant. CXR-Cardiomegaly with pulmonary vascular congestion. Ill-defined bibasilar opacities suggest atelectasis or pneumonitis. Trace right pleural effusion. CT head-no acute intracranial abnormality. Extensive acute sinusitis involving the maxillary, sphenoid, and frontal sinuses.
--- NOTE | 2019-11-29 16:45 | Electrocardiogram Report ---
Test Reason : Blood Pressure : / mmHG Vent. Rate : 115 BPM Atrial Rate : 115 BPM P-R Int : 146 ms QRS Dur : 076 ms QT Int : 386 ms P-R-T Axes : -19 007 056 degrees QTc Int : 533 ms Poor data quality, interpretation may be adversely affected Sinus tachycardia Low voltage QRS Prolonged QT Abnormal ECG When compared with ECG of 28-NOV-2019 18:03, (unconfirmed) Sinus rhythm has replaced Atrial fibrillation Confirmed by Scottie Mcnamara ([id number]) on 11/29/2019 4:44:56 PM Referred By: REFERRED SELF Confirmed By:Scottie Mcnamara
--- NOTE | 2019-11-29 17:00 | Hospitalist Progress Note ---
Date of Service November 29, 2019 Assessment & Plan (1) Hypoglycemia: Noted to have shaking involving the upper extremities Associated fall noted to have very low blood pressure glucose level at lower 40s Possible cause seems to be administration of more insulin and less food Insulin pump discontinued Pharmacy has been consulted for diabetes management (2) Seizure-like activity: Admitted with seizure-like activity which seems to be secondary to h ypoglycemia EEG unremarkable Appreciate neurology input and recommendation (3) Adenocarcinoma of endometrium, stage 4: 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 Symptomatic manage Protonix drip (5) Ascites: Ascites secondary to metastasis Requires drainage 2 times per week Has a peritoneal catheter in place Will aspirate 1 L daily while in the hospital (6) Acute renal failure superimposed on stage 3 chronic kidney disease: Acute on chronic renal impairment Getting intravenous fluid We will monitor PRP (7) Depression: Continue current medication (8) CHF (congestive heart failure): No evidence of any significant CHF at this (9) Hypertension: Blood pressure remains controlled DVT prophylax SCDs No pharmacologic anticoagulation due to coffee-ground vomitus CODE STATUS Conditional Discussed with the patient and the daughters Prognosis guarded Subjective 11/29/2019 The patient was seen and examined in medical floor She seemed to be restless as of this morning She has had nausea and vomiting with possible coffee-ground vomitus She was put for n.p.o. and has been getting intravenous fluids Denies any significant abdominal pain Has tremors involving both the hands and that has been chronic Review of Systems Review of Systems: All systems reviewed and are unremarkable except as noted below Constitutional: + weakness, + anorexia and + weight gain Respiratory: + dyspnea Cardiovascular: + palpitations and + edema (Bilateral trace edema); no chest pain Gastrointestinal: + bloating, + nausea, + vomiting and + coffee ground emesis Neurologic: + tremor(s); no headache(s) and no confusion Physical Exam Physical Exam: Sitting at the edge of the bed with acute anxiety and shortness of breath Constitutional: well developed, well nourished, + acute distress (Secondary to respiratory distress and abdominal distress), + ill appearing and + morbidly obese Eyes: PERRL, conjunctivae normal, anicteric sclerae ENMT: external ear and nose normal, oropharynx normal Neck: trachea midline, no thyromegaly Respiratory: + respiratory distress Auscultation: lungs clear to auscultation bilaterally and + diminished lung sounds Cardiovascular: Rate/Rhythm: regular rate and regular rhythm Heart Sounds: no murmur Gastrointestinal (Abdomen): Inspection/Auscultation: + abdomen distended Percussion/Palpation: abdomen soft and + ascites (Moderate ascites); abdomen nontender Musculoskeletal: No acute arthritis in any joints Neurologic: moves all extremities; no focal motor deficits Speech / Cognition: normal speech Motor/Sensory: + tremor Results & Data ([facility]) Vital Signs (Past 12 Hours) Vital Signs Temp Pulse Pulse Resp BP BP Pulse Ox 11/29/19 15:09 103 H 11/29/19 11:39 36.7 C 73 20 119/80 11/29/19 10:15 122 H 123/80 11/29/19 07:23 108 H 11/29/19 06:57 37.1 C 113 H 19 116/77 93 Laboratory Results Short CBC 11/28/19 11/29/19 Range/Units 18:09 05:46 WBC 11.43 H 18.82 H (4.8-10.8) K/uL Hgb 9.7 L 8.5 L (12.0-16.0) g/dL Hct 32.1 L 28.3 L (37-47) % Plt Count 205 169 (130-400) K/uL BMP 11/28/19 11/28/19 11/28/19 18:09 19:23 21:00 Sodium Cancelled 133 L Potassium Cancelled 2.5 L* Chloride Cancelled 69 L Carbon Dioxide Cancelled 47 H* BUN Cancelled 74 H Creatinine Cancelled 4.13 H Glucose Cancelled 49 L* Calcium Cancelled 9.8 11/29/19 11/29/19 05:46 07:56 Sodium 133 L Potassium 3.6 D Chloride 70 L Carbon Dioxide 48 H* BUN 79 H Creatinine 4.26 H Glucose 267 H Calcium 8.7 Liver Function 11/28/19 11/28/19 11/28/19 Range/Units 18:09 19:23 21:00 Total Bilirubin Cancelled 1.7 H AST Cancelled 44 H ALT Cancelled 20 Alkaline Phosphatase Cancelled 165 H Albumin Cancelled 2.2 L Medications Administered Current Inpatient Medications Albuterol (Ventolin Hfa) 2 puffs INH Q4H PRN PRN Reason: Wheezing Stop: 12/28/19 23:26 Atenolol (Tenormin) 100 mg PO QAM [facility] Stop: 12/29/19 08:59 Last Admin: 11/29/19 09:53 Dose: 100 mg Documented by: Atorvastatin Calcium (Lipitor) 80 mg PO DAILY ANTONIO Stop: 12/29/19 08:59 Last Admin: 11/29/19 09:55 Dose: 80 mg Documented by: Citalopram Hydrobromide (Celexa) 40 mg PO DAILY ANTONIO Stop: 12/29/19 08:59 Last Admin: 11/29/19 09:54 Dose: 40 mg Documented by: Cyclobenzaprine HCl (Flexeril) 5 mg PO BID PRN PRN Reason: Muscle Spasm Stop: 12/28/19 23:26 Dextrose (Dextrose 50%) 25 - 50 ml IV UD PRN; Protocol PRN Reason: Hypoglycemia Protocol Stop: 12/29/19 01:59 Docusate Sodium (Colace) 100 mg PO BID [facility] Stop: 12/29/19 08:59 Last Admin: 11/29/19 09:44 Dose: Not Given Documented by: Glucagon (Glucagen) 1 mg SQ UD PRN; Protocol PRN Reason: Hypoglycemia Protocol Stop: 12/29/19 01:59 Glucose (Glucose 40%) 15 - 30 gm PO UD PRN; Protocol PRN Reason: Hypoglycemia Protocol Stop: 12/29/19 01:59 Glucose (Dex4 Glucose) 4 - 8 tabs PO UD PRN; Protocol PRN Reason: Hypoglycemia Protocol Stop: 12/29/19 01:59 Lorazepam (Ativan) 1 mg in 2 mls @ 2 mls/min IV Q4H PRN PRN Reason: Breakthrough Seizures Stop: 12/28/19 23:26 Promethazine HCl 12.5 mg/ (Sodium Chloride) 50.5 mls @ 202 mls/hr IV Q6H PRN PRN Reason: Nausea And Vomiting Stop: 12/28/19 23:26 Last Infusion: 11/29/19 16:24 Dose: Infused Documented by: Piperacillin Sod/Tazobactam (Sod 4.5 gm/ Dextrose) 120 mls @ 30 mls/hr IV Q12H [facility]; Protocol Stop: 12/09/19 07:59 Last Infusion: 11/29/19 12:17 Dose: Infused Documented by: Potassium Chloride/Sodium Chloride (Normal Saline W/20 Meq Kcl) 20 meq in 1,000 mls @ 50 mls/hr IV .Q20H [facility] Stop: 12/29/19 08:14 Last Admin: 11/29/19 09:17 Dose: 50 mls/hr Documented by: Pantoprazole Sodium 40 mg/ (Dextrose) 100 mls @ 20 mls/hr IV Q5H [facility] Stop: 12/29/19 12:29 Last Admin: 11/29/19 13:05 Dose: 20 mls/hr Documented by: Insulin Aspart (Novolog Flexpen) 0 units SC ACHS [facility] Stop: 12/29/19 03:59 Last Admin: 11/29/19 12:08 Dose: 11 units Documented by: Insulin Aspart (Novolog Flexpen) 0 units SC 0200 [facility]; Protocol Stop: 11/30/19 02:01 Insulin Human NPH (Novolin N Nph) 0 units SC BIDM [facility]; Protocol Stop: 12/29/19 08:29 Metoprolol Tartrate (Lopressor) 2.5 mg IV Q4 PRN PRN Reason: Tachycardia Stop: 12/28/19 23:26 Last Admin: 11/29/19 10:15 Dose: 2.5 mg Documented by: Miconazole Nitrate (Desenex) 1 appln EXT PRN PRN PRN Reason: Affected Skin Folds Stop: 12/29/19 03:19 Miscellaneous (Carbohydrates For Hypoglycemia) 15 - 30 gm PO UD PRN PRN Reason: Hypoglycemia Treatment Stop: 12/29/19 01:59 Miscellaneous Information (Consult Glycemic Management Pharmacy) 1 ea N/A UD PRN PRN Reason: Consult Stop: 12/28/19 23:55 Miscellaneous Information (Consult) 1 ea N/A UD PRN PRN Reason: Consult Stop: 12/28/19 23:26 Nitroglycerin (Nitrostat) 0.4 mg SL UD PRN PRN Reason: Chest Pain Stop: 12/28/19 23:26 Polyethylene Glycol (Miralax Powder Packet) 17 gm PO DAILY PRN PRN Reason: Constipation Stop: 12/28/19 23:26 Trazodone HCl (Desyrel) 75 mg PO HS [facility] Stop: 12/29/19 20:59 (1) Vomiting Nausea presence: unspecified Vomiting Intractability: unspecified Vomiting type: unspecified Qualified Code(s): R11.10 - Vomiting, unspecified (2) CHF (congestive heart failure) Heart failure chronicity: unspecified Heart failure type: unspecified Qualified Code(s): I50.9 - Heart failure, unspecified
[2019-11-29] MEDS: INSULIN HUMAN NPH SC SCH (17:15)
[2019-11-29] MEDS: TRAZODONE HCL 50 MG TAB PO SCH (21:48)
[2019-11-30] MEDS: INSULIN ASPART 100 UNITS/ML 3 ML PEN SC SCH ×6 (00:19→21:53)
[2019-11-30] MEDS ORDERED: HEPARIN 100 UNIT/ML 5ML FLUSH FLUSH PRN (00:37)
[2019-11-30] MEDS ORDERED: PROCHLORPERAZINE 5 MG in SYRINGE 4 ML IV ONE (01:37)
[2019-11-30] MEDS ORDERED: INSULIN ASPART 100 UNITS/ML 3 ML PEN SC SCH (02:00)
[2019-11-30] MEDS: PANTOprazole 40 MG in DEXTROSE 5% 100 ML IV SCH ×5 (02:58→23:25)
[2019-11-30] MEDS: NSS + 20MEQ KCL 20 MEQ/1,000 ML BAG IV SCH (05:12)
[2019-11-30 06:31] LABS: Basophils # (auto) 0.01 K/uL (0-0.2); Basophils % (auto) 0.1 %; Eosinophils # (auto) 0.03 K/uL (0-0.5); Eosinophils % (auto) 0.2 %; Hematocrit (blood only) 25.1 % (37-47); Hemoglobin 7.6 g/dL (12.0-16.0); Immature Granulocytes # (auto) 0.07 K/uL (0.00-0.02); Immature Granulocytes % (auto) 0.5 %; Lymphocytes # (auto) 0.86 K/uL (1.2-3.4); Lymphocytes % (auto) 5.8 %; Mean Corpuscular Hgb Conc 30.3 g/dL (32-36); Mean Corpuscular Volume 95.8 fL (80-100); Mean Platelet Volume 9.2 fL (7.4-10.4); Monocytes # (auto) 0.85 K/uL (0.11-0.59); Monocytes % (auto) 5.8 %; Neutrophils # (auto) 12.92 K/uL (1.4-6.5); Neutrophils % (auto) 87.6 %; Platelet Count 136 K/uL (130-400); RDW Coefficient of Variation 16.2 % (11.5-14.5); RDW Standard Deviation 56.1 fL (36.4-46.3); Red Blood Count 2.62 M/uL (4.2-5.4); White Blood Count 14.74 K/uL (4.8-10.8)
[2019-11-30 07:03] LABS: Polychromasia 1+
[2019-11-30 07:19] LABS: BUN Creatinine Ratio 18.6 (10-20); Calcium 8.6 mg/dl (8.5-10.1); Creatinine Clr Calc Pharmacy 15.9 ml/min; Est GFR (African American) 11.9; Est GFR (Non-African American) 10.2; Magnesium 2.7 mg/dl (1.8-2.4); Phosphorus 6.5 mg/dl (2.5-4.9); Potassium 2.9 mmol/L (3.5-5.1)
[2019-11-30] MEDS: DOCUSATE SODIUM 100 MG CAP PO SCH ×2 (07:55→21:46)
[2019-11-30] MEDS: ATENOLOL 50 MG TABLET PO SCH (07:55)
[2019-11-30] MEDS: CITALOPRAM 40 MG TAB PO SCH (07:55)
[2019-11-30] MEDS ORDERED: SODIUM CHLORIDE 0.9% 250 ML IV PRN (09:08)
[2019-11-30] MEDS: INSULIN HUMAN NPH SC SCH ×2 (09:23→16:57)
[2019-11-30] MEDS: PROMETHAZINE HCL 12.5 MG in SODIUM CHLORIDE 0.9% 50 ML IV PRN (09:23)
[2019-11-30] MEDS: PIPERACILLIN/TAZOBACTAM 4.5 GM in DEXTROSE 5% 100 ML IV SCH ×2 (09:23→21:46)
[2019-11-30] MEDS ORDERED: METOPROLOL TARTRATE 1 MG/ML VIAL IV STA (09:27)
[2019-11-30] MEDS: POTASSIUM CHLORIDE / WTR 10 MEQ/100 ML PLCT IV SCH ×2 (09:36→10:50)
--- NOTE | 2019-11-30 10:51 | Pharmacy Report ---
Pharmacy Glycemic Short Note 2 - Date of Service November 30, 2019 - Glycemic Short BSG Results (Last 24 hours): 11/29/19 11/29/19 11/29/19 10:39 11:32 16:19 Glucose POC Glucose 321 H* 261 H 162 H 11/29/19 11/30/19 11/30/19 20:19 00:06 04:01 Glucose POC Glucose 200 H 240 H 170 H 11/30/19 11/30/19 05:41 07:47 Glucose 142 H POC Glucose 205 H OUTPATIENT ANTIDIABETIC REGIMEN: Novolog pump * A1c = 6.4 % (11/29/19) * Unable to obtain pump setting due to patient confusion today * Pump settings 11/2018: * Basal rates 4-6 units/hr (121.5 units/day) * CR: 1 unit per 2 g of CHO * CF: 10 * Of note patient required far less insulin while inpatient during that time ASSESSMENT: 11/30/19: * Patient received 76 units of insulin yesterday * 35 units of basal insulin * 41 units of prandial/correctional insulin * BSGs ranging 162- 315 over the past 24hrs * Fasting BSG of 205 mg/dL is above goal. NPH was empirically decreased last evening (15 units) due to ongoing reports of nausea/vomiting. I will resume higher dose of 20-25 units at this time. * Post-prandial BSGs are also elevated despite minimal oral intake. I will tighten the Novolog correction factor. * During previous admissions, patient was well controlled on ~100 units/day (while eating) 11/29/19: * SC is a 64 year old female admitted to [facility] for seizure-like activity vs. hypoglycemic event * BSG on presentation of 49 mg/dL - Patient given D50% at that time and then started on D5NS with 20 mEq of K+ at 50 mL/hr, which ran until 0800 this morning * Pertinent PMH includes type 2 DM, CKD stage IV, and metastatic endometrial cancer * Patient now receiving NS with 20 mEq of K+ at 50 mL/hr * Will base initial insulin doses on previous admission data * Patient ordered clear liquid diet and has had intermittent coffee ground emesis * No documented PO intake so far today * Limited recent PO intake as an outpatient * Patient has been under outpatient Hospice for approximately 9 days - expectation is to resume this upon discharge PLAN FOR INPATIENT GLYCEMIC CONTROL: * Basal insulin - increase * NPH SQ BID * 20 units for BSG 180 mg/dL or less * 25 units for BSG > 180 mg/dL * Bolus insulin - tighten correction factor * NovoLog per scale ACHS or Q6hrs while NPO * Goal Range: Low 110 mg/dL - High 140 mg/dL * Correction Factor: 15 mg/dL/unit * Nutritional / Prandial insulin per carb ratio of 1 unit per 3 grams CHO consumed PLAN FOR DISCHARGE: * pending
--- NOTE | 2019-11-30 11:33 | Electrocardiogram Report ---
Test Reason : Blood Pressure : / mmHG Vent. Rate : 148 BPM Atrial Rate : 144 BPM P-R Int : 000 ms QRS Dur : 082 ms QT Int : 348 ms P-R-T Axes : 000 009 213 degrees QTc Int : 546 ms Atrial fibrillation with rapid ventricular response Low voltage QRS Nonspecific ST and T wave abnormality Abnormal ECG When compared with ECG of 29-NOV-2019 09:40, Atrial fibrillation has replaced Sinus rhythm HR has increased by [address] and T wave abnormality now present Confirmed by Lan Cordova ([id number]) on 11/30/2019 11:32:38 AM Referred By: REFERRED SELF Confirmed By:Lan Cordova
--- NOTE | 2019-11-30 11:37 | Hospitalist Progress Note ---
Date of Service November 30, 2019 Assessment & Plan (1) Hypoglycemia: Noted to have shaking involving the upper extremities Associated fall noted to have very low blood pressure glucose level at lower 40s Possible cause seems to be administration of more insulin and less food Insulin pump discontinued Pharmacy has been consulted for diabetes management No more hypoglycemia (2) Seizure-like activity: Admitted with seizure-like activity which seems to be secondary to hypoglycemia EEG unremarkable Appreciate neurology input and recommendation Appreciate neurology input and recommendation Seizures ruled out (3) Adenocarcinoma of endometrium, stage 4: 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 Symptomatic manage Protonix drip Questionable coffee-ground emesis Has been on Protonix drip since Hemoglobin dropped to 7.7, doubt due to ongoing bleeding Likely secondary to stress for endometrial cancer with metastasis and recent chemotherapy No more vomiting and no more coffee-ground emesis We will give 2 units of packed red cell blood transfusion (5) Ascites: Ascites secondary to metastasis Requires drainage 2 times per week Has a peritoneal catheter in place Will aspirate 1 L daily while in the hospital (6) Acute renal failure superimposed on stage 3 chronic kidney disease: Acute on chronic renal impairment Getting intravenous fluid We will monitor PRP (7) Depression: Continue current medication (8) CHF (congestive heart failure): No evidence of any significant CHF at this (9) Hypertension: Blood pressure remains controlled DVT prophylax SCDs No pharmacologic anticoagulation due to coffee-ground vomitus CODE STATUS Conditional Discussed with the patient and the daughters Prognosis guarded (10) Atrial fibrillation with RVR: She went into atrial fibrillation early this morning with a heart rate of more than 140 EKG confirmed the diagnosis She has not been getting atenolol since yesterday She was transferred to telemetry unit and received 1 dose of intravenous Lopressor Later on she converted to sinus rhythm We will continue atenolol Subjective 11/29/2019 The patient was seen and examined in medical floor She seemed to be restless as of this morning She has had nausea and vomiting with possible coffee-ground vomitus She was put for n.p.o. and has been getting intravenous fluids Denies any significant abdominal pain Has tremors involving both the hands and that has been chronic 11/30/2019 The patient was seen and examined in medical unit She went into [facility] with RVR this morning without any significant symptoms She has been feeling little better since admission She was transferred to telemetry unit for continuation of care Review of Systems Review of Systems: All systems reviewed and are unremarkable except as noted below Constitutional: + weakness, + anorexia and + weight gain Respiratory: + dyspnea Cardiovascular: + palpitations and + edema (Bilateral trace edema); no chest pain Gastrointestinal: + bloating, + nausea, + vomiting and + coffee ground emesis Neurologic: + tremor(s); no headache(s) and no confusion Physical Exam Physical Exam: Lying in bed comfortably Constitutional: well developed, well nourished, + acute distress (Secondary to respiratory distress and abdominal distress), + ill appearing and + morbidly obese Eyes: PERRL, conjunctivae normal, anicteric sclerae ENMT: external ear and nose normal, oropharynx normal Neck: trachea midline, no thyromegaly Respiratory: + respiratory distress Auscultation: lungs clear to auscultation bilaterally and + diminished lung sounds Cardiovascular: Rate/Rhythm: + abnormal rate and + abnormal rhythm Heart Sounds: no murmur Gastrointestinal (Abdomen): Inspection/Auscultation: + abdomen distended Percussion/Palpation: abdomen soft and + ascites (Moderate ascites); abdomen nontender Musculoskeletal: No acute arthritis in any joints Neurologic: moves all extremities; no focal motor deficits Speech / Cognition: normal speech Motor/Sensory: + tremor Alert, awake and oriented x3 Results & Data ([facility]) Vital Signs (Past 12 Hours) Vital Signs Temp Pulse Pulse Resp BP BP Pulse Ox 11/30/19 10:53 98 H 19 105/73 96 11/30/19 10:02 36.6 C 137 H 20 115/68 96 11/30/19 09:36 149 H 96/69 L 11/30/19 07:23 36.6 C 97 H 16 114/82 92 11/30/19 07:21 90 11/30/19 03:31 36.5 C 100 H 18 116/83 92 11/30/19 00:00 97 H Laboratory Results Short CBC 11/30/19 Range/Units 05:41 WBC 14.74 H (4.8-10.8) K/uL Hgb 7.6 L (12.0-16.0) g/dL Hct 25.1 L (37-47) % Plt Count 136 (130-400) K/uL BMP 11/30/19 05:41 Sodium 132 L Potassium 2.9 L D Chloride 72 L Carbon Dioxide 51 H* BUN 79 H Creatinine 4.26 H Glucose 142 H Calcium 8.6 Medications Administered Current Inpatient Medications Albuterol (Ventolin Hfa) 2 puffs INH Q4H PRN PRN Reason: Wheezing Stop: 12/28/19 23:26 Atenolol (Tenormin) 100 mg PO QAM [facility] Stop: 12/29/19 08:59 Last Admin: 11/30/19 07:55 Dose: Not Given Documented by: Atorvastatin Calcium (Lipitor) 80 mg PO DAILY [facility] Stop: 12/29/19 08:59 Last Admin: 11/29/19 09:55 Dose: 80 mg Documented by: Citalopram Hydrobromide (Celexa) 40 mg PO DAILY [facility] Stop: 12/29/19 08:59 Last Admin: 11/30/19 07:55 Dose: Not Given Documented by: Cyclobenzaprine HCl (Flexeril) 5 mg PO BID PRN PRN Reason: Muscle Spasm Stop: 12/28/19 23:26 Dextrose (Dextrose 50%) 25 - 50 ml IV UD PRN; Protocol PRN Reason: Hypoglycemia Protocol Stop: 12/29/19 01:59 Docusate Sodium (Colace) 100 mg PO BID [facility] Stop: 12/29/19 08:59 Last Admin: 11/30/19 07:55 Dose: Not Given Documented by: Glucagon (Glucagen) 1 mg SQ UD PRN; Protocol PRN Reason: Hypoglycemia Protocol Stop: 12/29/19 01:59 Glucose (Glucose 40%) 15 - 30 gm PO UD PRN; Protocol PRN Reason: Hypoglycemia Protocol Stop: 12/29/19 01:59 Glucose (Dex4 Glucose) 4 - 8 tabs PO UD PRN; Protocol PRN Reason: Hypoglycemia Protocol Stop: 12/29/19 01:59 Heparin Sodium (Porcine) (Heparin Sod 100 Unit/Ml Flush) 5 ml FLUSH PRN PRN PRN Reason: Flush Stop: 12/30/19 00:44 Lorazepam (Ativan) 1 mg in 2 mls @ 2 mls/min IV Q4H PRN PRN Reason: Breakthrough Seizures Stop: 12/28/19 23:26 Promethazine HCl 12.5 mg/ (Sodium Chloride) 50.5 mls @ 202 mls/hr IV Q6H PRN PRN Reason: Nausea And Vomiting Stop: 12/28/19 23:26 Last Infusion: 11/29/19 23:11 Dose: Infused Documented by: Piperacillin Sod/Tazobactam (Sod 4.5 gm/ Dextrose) 120 mls @ 30 mls/hr IV Q12H [facility]; Protocol Stop: 12/09/19 07:59 Last Admin: 11/30/19 09:23 Dose: 30 mls/hr Documented by: Potassium Chloride/Sodium Chloride (Normal Saline W/20 Meq Kcl) 20 meq in 1,000 mls @ 50 mls/hr IV .Q20H [facility] Stop: 12/29/19 08:14 Last Admin: 11/30/19 05:12 Dose: 50 mls/hr Documented by: Pantoprazole Sodium 40 mg/ (Dextrose) 100 mls @ 20 mls/hr IV Q5H [facility] Stop: 12/29/19 12:29 Last Admin: 11/30/19 07:55 Dose: 20 mls/hr Documented by: Sodium Chloride (Nss) 250 mls @ 15 mls/hr IV .[id number] PRN PRN Reason: For Transfusion Stop: 11/30/19 19:08 Insulin Aspart (Novolog Flexpen) 0 units SC ACHS [facility] Stop: 12/29/19 03:59 Last Admin: 11/30/19 09:22 Dose: 4 units Documented by: Insulin Human NPH (Novolin N Nph) 0 units SC BIDM [facility]; Protocol Stop: 12/29/19 08:29 Last Admin: 11/30/19 09:23 Dose: 25 units Documented by: Metoprolol Tartrate (Lopressor) 2.5 mg IV Q4 PRN PRN Reason: Tachycardia Stop: 12/28/19 23:26 Last Admin: 11/29/19 10:15 Dose: 2.5 mg Documented by: Miconazole Nitrate (Desenex) 1 appln EXT PRN PRN PRN Reason: Affected Skin Folds Stop: 12/29/19 03:19 Miscellaneous (Carbohydrates For Hypoglycemia) 15 - 30 gm PO UD PRN PRN Reason: Hypoglycemia Treatment Stop: 12/29/19 01:59 Miscellaneous Information (Consult Glycemic Management Pharmacy) 1 ea N/A UD PRN PRN Reason: Consult Stop: 12/28/19 23:55 Miscellaneous Information (Consult) 1 ea N/A UD PRN PRN Reason: Consult Stop: 12/28/19 23:26 Nitroglycerin (Nitrostat) 0.4 mg SL UD PRN PRN Reason: Chest Pain Stop: 12/28/19 23:26 Polyethylene Glycol (Miralax Powder Packet) 17 gm PO DAILY PRN PRN Reason: Constipation Stop: 12/28/19 23:26 Trazodone HCl (Desyrel) 75 mg PO HS [facility] Stop: 12/29/19 20:59 Last Admin: 11/29/19 21:48 Dose: Not Given Documented by: (1) Vomiting Nausea presence: unspecified Vomiting Intractability: unspecified Vomiting type: unspecified Qualified Code(s): R11.10 - Vomiting, unspecified (2) CHF (congestive heart failure) Heart failure chronicity: unspecified Heart failure type: unspecified Qualified Code(s): I50.9 - Heart failure, unspecified
--- NOTE | 2019-11-30 11:43 | Communication Note ---
Date of Service: November 30, 2019 I saw Denise today and she is much improved. She has been transferred to the unit because of the onset of rapid atrial fibrillation which is now controlled but she has not been vomiting her glucose levels are well controlled or at least much better control than she was at home, no episodes of hypoglycemia have been recorded and she has had no further seizure-like events lending further support to my theory that these were mediated through hypoglycemia rather than a primary seizure disorder On exam she is awake alert little amnestic for yesterday makes good eye contact has intact cranial nerves moves all extremities well may have a little tremor of the outstretched hands has difficult to elicit reflexes no toe signs no Mack signs good gross strength and reduced sensation to vibration below the knees which would be expected At this point neurology is not going to see her on a regular basis unless of course she would have another event of unequivocal seizure type in the setting of normal or at least reasonably controlled blood glucose levels We do not need to see her as a return patient following hospitalization unless during the current hospitalization she would have unequivocal seizures and we get reengaged in her care Cj Tillman MD
[2019-11-30] MEDS ORDERED: FUROSEMIDE 40 MG in SYRINGE 0 ML IV SCH (12:00)
[2019-11-30] MEDS: TRAZODONE HCL 50 MG TAB PO SCH (21:46)
[2019-12-01] MEDS: NSS + 20MEQ KCL 20 MEQ/1,000 ML BAG IV SCH ×2 (00:18→21:00)
[2019-12-01] MEDS: PANTOprazole 40 MG in DEXTROSE 5% 100 ML IV SCH ×4 (03:44→20:35)
[2019-12-01] MEDS: PROMETHAZINE HCL 12.5 MG in SODIUM CHLORIDE 0.9% 50 ML IV PRN (04:44)
[2019-12-01 06:14] LABS: Basophils # (auto) 0.01 K/uL (0-0.2); Basophils % (auto) 0.1 %; Eosinophils # (auto) 0.05 K/uL (0-0.5); Eosinophils % (auto) 0.3 %; Hematocrit (blood only) 31.1 % (37-47); Hemoglobin 10.1 g/dL (12.0-16.0); Immature Granulocytes # (auto) 0.11 K/uL (0.00-0.02); Immature Granulocytes % (auto) 0.7 %; Lymphocytes # (auto) 0.86 K/uL (1.2-3.4); Lymphocytes % (auto) 5.8 %; Mean Corpuscular Hemoglobin 29.1 pg (25-34); Mean Corpuscular Hgb Conc 32.5 g/dL (32-36); Mean Corpuscular Volume 89.6 fL (80-100); Mean Platelet Volume 9.7 fL (7.4-10.4); Monocytes % (auto) 5.4 %; Neutrophils # (auto) 13.12 K/uL (1.4-6.5); Neutrophils % (auto) 87.7 %; Platelet Count 108 K/uL (130-400); RDW Coefficient of Variation 17.7 % (11.5-14.5); RDW Standard Deviation 56.6 fL (36.4-46.3); Red Blood Count 3.47 M/uL (4.2-5.4); White Blood Count 14.95 K/uL (4.8-10.8)
[2019-12-01 06:34] LABS: BUN Creatinine Ratio 18.8 (10-20); Calcium 8.7 mg/dl (8.5-10.1); Creatinine Clr Calc Pharmacy 16.5 ml/min; Est GFR (African American) 12.3; Est GFR (Non-African American) 10.6; Potassium 2.9 mmol/L (3.5-5.1)
[2019-12-01] MEDS: INSULIN ASPART 100 UNITS/ML 3 ML PEN SC SCH ×4 (07:46→20:53)
[2019-12-01] MEDS: INSULIN HUMAN NPH SC SCH ×2 (07:47→17:18)
[2019-12-01] MEDS: PIPERACILLIN/TAZOBACTAM 4.5 GM in DEXTROSE 5% 100 ML IV SCH (07:47)
[2019-12-01] MEDS: ATENOLOL 50 MG TABLET PO SCH (07:47)
[2019-12-01] MEDS: CITALOPRAM 40 MG TAB PO SCH (07:48)
[2019-12-01] MEDS: DOCUSATE SODIUM 100 MG CAP PO SCH ×2 (07:48→21:00)
[2019-12-01] MEDS ORDERED: POTASSIUM CHLORIDE 20 MEQ TABCR PO STA (07:50)
[2019-12-01] MEDS ORDERED: PROMETHAZINE HCL 12.5 MG in SODIUM CHLORIDE 0.9% 50 ML IV STA (08:38)
[2019-12-01] MEDS: POTASSIUM CHLORIDE / WTR 10 MEQ/100 ML PLCT IV SCH ×4 (09:22→16:42)
--- NOTE | 2019-12-01 11:10 | Hospitalist Progress Note ---
Date of Service December 01, 2019 Assessment & Plan (1) Hypoglycemia: Noted to have shaking involving the upper extremities Associated fall noted to have very low blood pressure glucose level at lower 40s Possible cause seems to be administration of more insulin and less food Insulin pump discontinued Pharmacy has been consulted for diabetes management No more hypoglycemia Has been tolerating diet (2) Seizure-like activity: Admitted with seizure-like activity which seems to be secondary to hypoglycemia EEG unremarkable Appreciate neurology input and recommendation Appreciate neurology input and recommendation Seizures ruled out (3) Adenocarcinoma of endometrium, stage 4: 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 Symptomatic manage Protonix drip Still having nausea and vomiting at times but no more coffee-ground emesis Questionable coffee-ground emesis Has been on Protonix drip since Hemoglobin dropped to 7.7, doubt due to ongoing bleeding Likely secondary to stress for endometrial cancer with metastasis and recent chemotherapy No more vomiting and no more coffee-ground emesis We will give 2 units of packed red cell blood transfusion Hemoglobin went up to more than 10 If nausea and vomiting persist will need to consult GI (5) Ascites: Ascites secondary to metastasis Requires drainage 2 times per week Has a peritoneal catheter in place Will aspirate 1 L daily while in the hospital (6) Acute renal failure superimposed on stage 3 chronic kidney disease: Acute on chronic renal impairment Getting intravenous fluid We will monitor PRP Creatinine has been worsening since admission We will get a nephrology evaluation while in the hospital (7) Depression: Continue current medication (8) CHF (congestive heart failure): No evidence of any significant CHF at this (9) Hypertension: Blood pressure remains controlled DVT prophylax SCDs No pharmacologic anticoagulation due to coffee-ground vomitus CODE STATUS Conditional Discussed with the patient and the daughters Prognosis guarded (10) Atrial fibrillation with RVR: She went into atrial fibrillation early this morning with a heart rate of more than 140 EKG confirmed the diagnosis She has not been getting atenolol since yesterday She was transferred to telemetry unit and received 1 dose of intravenous Lopressor Later on she converted to sinus rhythm We will continue atenolol Reverted to sinus rhythm We will get an EKG to confirm that Subjective 11/29/2019 The patient was seen and examined in medical floor She seemed to be restless as of this morning She has had nausea and vomiting with possible coffee-ground vomitus She was put for n.p.o. and has been getting intravenous fluids Denies any significant abdominal pain Has tremors involving both the hands and that has been chronic 11/30/2019 The patient was seen and examined in medical unit She went into [facility] fib with RVR this morning without any significant symptoms She has been feeling little better since admission She was transferred to telemetry unit for continuation of care 12/01/2019 The patient was seen and examined in telemetry unit She has been feeling a lot better and is out of bed on a chair Denies any significant symptoms She reverted to sinus rhythm as of yesterday Review of Systems Review of Systems: All systems reviewed and are unremarkable except as noted below Constitutional: + weakness, + anorexia and + weight gain Respiratory: + dyspnea Cardiovascular: + palpitations and + edema (Bilateral trace edema); no chest pain Gastrointestinal: + bloating, + nausea, + vomiting and + coffee ground emesis Neurologic: + tremor(s); no headache(s) and no confusion Physical Exam Physical Exam: Sitting on a chair comfortably Constitutional: well developed, well nourished, + acute distress (Secondary to respiratory distress and abdominal distress), + ill appearing and + morbidly obese Eyes: PERRL, conjunctivae normal, anicteric sclerae ENMT: external ear and nose normal, oropharynx normal Neck: trachea midline, no thyromegaly Respiratory: no respiratory distress Auscultation: lungs clear to auscultation bilaterally and + diminished lung sounds Cardiovascular: Rate/Rhythm: regular rate and regular rhythm Heart Sounds: no murmur Gastrointestinal (Abdomen): Inspection/Auscultation: + abdomen distended Percussion/Palpation: abdomen soft and + ascites (Moderate ascites); abdomen nontender Neurologic: moves all extremities; no focal motor deficits Speech / Cognition: normal speech Motor/Sensory: + tremor Lymphatic: no cervical or axillary lymphadenopathy Results & Data ([facility]) Vital Signs (Past 12 Hours) Vital Signs Temp Pulse Pulse Resp BP Pulse Ox 12/01/19 07:43 36.7 C 97 H 20 133/82 98 12/01/19 03:49 36.2 C L 98 H 22 116/75 91 12/01/19 03:24 102 H 20 91 12/01/19 00:48 88 Laboratory Results Short CBC 12/01/19 Range/Units 05:34 WBC 14.95 H (4.8-10.8) K/uL Hgb 10.1 L (12.0-16.0) g/dL Hct 31.1 L (37-47) % Plt Count 108 L (130-400) K/uL BMP 12/01/19 05:34 Sodium 133 L Potassium 2.9 L Chloride 75 L Carbon Dioxide 50 H* BUN 78 H Creatinine 4.15 H Glucose 142 H Calcium 8.7 Medications Administered Current Inpatient Medications Albuterol (Ventolin Hfa) 2 puffs INH Q4H PRN PRN Reason: Wheezing Stop: 12/28/19 23:26 Amoxicillin/Clavulanate Potassium (Augmentin 500mg) 1 tab PO BIDM [facility]; Protocol Stop: 12/09/19 16:59 Atenolol (Tenormin) 100 mg PO QAM [facility] Stop: 12/29/19 08:59 Last Admin: 12/01/19 07:47 Dose: 100 mg Documented by: Atorvastatin Calcium (Lipitor) 80 mg PO DAILY [facility] Stop: 12/29/19 08:59 Last Admin: 11/29/19 09:55 Dose: 80 mg Documented by: Citalopram Hydrobromide (Celexa) 40 mg PO DAILY [facility] Stop: 12/29/19 08:59 Last Admin: 12/01/19 07:48 Dose: 40 mg Documented by: Cyclobenzaprine HCl (Flexeril) 5 mg PO BID PRN PRN Reason: Muscle Spasm Stop: 12/28/19 23:26 Dextrose (Dextrose 50%) 25 - 50 ml IV UD PRN; Protocol PRN Reason: Hypoglycemia Protocol Stop: 12/29/19 01:59 Docusate Sodium (Colace) 100 mg PO BID [facility] Stop: 12/29/19 08:59 Last Admin: 12/01/19 07:48 Dose: 100 mg Documented by: Glucagon (Glucagen) 1 mg SQ UD PRN; Protocol PRN Reason: Hypoglycemia Protocol Stop: 12/29/19 01:59 Glucose (Glucose 40%) 15 - 30 gm PO UD PRN; Protocol PRN Reason: Hypoglycemia Protocol Stop: 12/29/19 01:59 Glucose (Dex4 Glucose) 4 - 8 tabs PO UD PRN; Protocol PRN Reason: Hypoglycemia Protocol Stop: 12/29/19 01:59 Heparin Sodium (Porcine) (Heparin Sod 100 Unit/Ml Flush) 5 ml FLUSH PRN PRN PRN Reason: Flush Stop: 12/30/19 00:44 Lorazepam (Ativan) 1 mg in 2 mls @ 2 mls/min IV Q4H PRN PRN Reason: Breakthrough Seizures Stop: 12/28/19 23:26 Promethazine HCl 12.5 mg/ (Sodium Chloride) 50.5 mls @ 202 mls/hr IV Q6H PRN PRN Reason: Nausea And Vomiting Stop: 12/28/19 23:26 Last Infusion: 12/01/19 05:00 Dose: Infused Documented by: Potassium Chloride/Sodium Chloride (Normal Saline W/20 Meq Kcl) 20 meq in 1,000 mls @ 50 mls/hr IV .Q20H [facility] Stop: 12/29/19 08:14 Last Infusion: 12/01/19 08:53 Dose: 0 mls/hr Documented by: Pantoprazole Sodium 40 mg/ (Dextrose) 100 mls @ 20 mls/hr IV Q5H [facility] Stop: 12/29/19 12:29 Last Admin: 12/01/19 08:54 Dose: 20 mls/hr Documented by: Insulin Aspart (Novolog Flexpen) 0 units SC ACHS [facility] Stop: 12/29/19 03:59 Last Admin: 12/01/19 07:46 Dose: 9 units Documented by: Insulin Human NPH (Novolin N Nph) 0 units SC BIDM [facility]; Protocol Stop: 12/29/19 08:29 Last Admin: 12/01/19 07:47 Dose: 20 units Documented by: Metoprolol Tartrate (Lopressor) 2.5 mg IV Q4 PRN PRN Reason: Tachycardia Stop: 12/28/19 23:26 Last Admin: 11/29/19 10:15 Dose: 2.5 mg Documented by: Miconazole Nitrate (Desenex) 1 appln EXT PRN PRN PRN Reason: Affected Skin Folds Stop: 12/29/19 03:19 Miscellaneous (Carbohydrates For Hypoglycemia) 15 - 30 gm PO UD PRN PRN Reason: Hypoglycemia Treatment Stop: 12/29/19 01:59 Miscellaneous Information (Consult Glycemic Management Pharmacy) 1 ea N/A UD PRN PRN Reason: Consult Stop: 12/28/19 23:55 Nitroglycerin (Nitrostat) 0.4 mg SL UD PRN PRN Reason: Chest Pain Stop: 12/28/19 23:26 Polyethylene Glycol (Miralax Powder Packet) 17 gm PO DAILY PRN PRN Reason: Constipation Stop: 12/28/19 23:26 Trazodone HCl (Desyrel) 75 mg PO HS [facility] Stop: 12/29/19 20:59 Last Admin: 11/30/19 21:46 Dose: 75 mg Documented by: (1) Vomiting Nausea presence: unspecified Vomiting Intractability: unspecified Vomiting type: unspecified Qualified Code(s): R11.10 - Vomiting, unspecified (2) CHF (congestive heart failure) Heart failure chronicity: unspecified Heart failure type: unspecified Qualified Code(s): I50.9 - Heart failure, unspecified
--- NOTE | 2019-12-01 14:32 | Consultation Report ---
Ignore this. See Another COnsult Note. MTDD
--- NOTE | 2019-12-01 15:14 | Consultation Report ---
DATE OF CONSULTATION: 12/01/2019 REASON FOR CONSULT: Acute renal failure on background chronic kidney disease IV. HISTORY OF PRESENT ILLNESS: The patient is a 64-year-old female with advanced untreatable metastatic cancer as well as chronic kidney disease stage IV with a baseline creatinine around 2 as well as multiple medical problems including diabetic nephropathy, COPD, sleep apnea, on chronic oxygen. She presented to the hospital after seizure-like episode and mental status change. She has malignant ascites requiring drainage 2 times a week. Her last chemotherapy was in 04/2019. Chemotherapy has been stopped because of low blood count as well as abnormal kidney function. She is currently on home hospice with her daughters; however, she does not want to stop everything and does not want to get out of hospital quite yet. Creatinine has been in the 4 range for the last few days. She has received IV fluid as well as potassium supplementation but it does not seem to have made much difference. Creatinine was 4.1 on admission and it is still 4.1, potassium still low at 2.9. The patient denies having any severe pain or shortness of breath at this time. PAST MEDICAL HISTORY: Already reviewed. On top of that, she also has history of biliary cirrhosis, diabetic polyneuropathy, longstanding type 2 diabetes, chronic hypoxic respiratory failure, hyperlipidemia, hypertension, GERD. PAST SURGICAL HISTORY: Very extensive and was reviewed in detail. MEDICATIONS: At home was reviewed in detail and is as per the reconciliation list. FAMILY HISTORY: Negative for renal disease or dialysis. SOCIAL HISTORY: She is , currently lives with her daughter. Former smoker, quit in 2001. No alcohol, no drugs. REVIEW OF SYSTEMS: As per HPI illness stated, otherwise 12 systems reviewed and negative. PHYSICAL EXAMINATION: GENERAL: Middle-aged female who is obese. She is not in any respiratory distress, at rest. She does require oxygen. VITAL SIGNS: Most recent vital signs show a blood pressure of 106/75, pulse rate 76 per minute, respiratory rate 17 per minute, temperature 36.6, 95% on 3 liter nasal cannula. CHEST: Decreased breath sound at bases. Occasional crackles. CARDIOVASCULAR: S1 and S2 distant. ABDOMEN: Distended with ascites as well as abdominal wall edema. EXTREMITIES: Shows minimal edema. LABORATORY TESTS: From this morning shows serum sodium 133, potassium 2.9, chloride 75, BUN 78, creatinine 4.15. WBC count 15,000, hemoglobin 10.1, platelet count 108. CT scan of the abdomen and pelvis shows abdominal ascites has worsened. She does have small right pleural effusion as well as patchy changes in both lungs, extensive cancer in the abdomen. The kidneys were reported as unremarkable. ASSESSMENT AND PLAN: A 64-year-old female with advanced untreatable metastatic cancer, now admitted with mental status change and seizure like episodes. I have been consulted for acute renal failure on background chronic kidney disease IV. 1. Acute renal failure. This is on background chronic kidney disease IV as she already has a baseline creatinine of around 2. Creatinine is stable but at a higher level of 4.1. This might be her new baseline. She does not have any evidence of severe fluid deficit at this time, although at the time of presentation, she was having lot of nausea, vomiting and very poor oral intake for the preceding few days so there is some component of volume depletion. I would continue with IV fluid for the time being. 2. Hyponatremia and hypokalemia. She needs to be aggressively replenished with potassium supplementation. She is getting potassium rider as well as oral potassium as well as potassium in the bag of normal saline. I would continue all the supplementation as it is. I did ask her a question directly about the level of care she wants. She says she wants to think few more days before she stops all treatment. I will defer this to primary service, her oncologist and palliative medicine. One thing is obviously clear that if she ever gets to the point where she needs dialysis, she is not a candidate for dialysis because of her advanced untreatable cancer. Thank you very much for the consult. ARABELLA
[2019-12-01] MEDS: AMOXICILLIN/CLAVULANATE 500 MG TAB PO SCH (17:24)
[2019-12-01] MEDS: DEXTROSE 50% 50 ML SYRINGE IV PRN (20:49)
[2019-12-01] MEDS: TRAZODONE HCL 50 MG TAB PO SCH (21:00)
[2019-12-02] MEDS ORDERED: INSULIN ASPART 100 UNITS/ML 3 ML PEN SC SCH
[2019-12-02] MEDS: PANTOprazole 40 MG in DEXTROSE 5% 100 ML IV SCH ×4 (00:48→15:40)
[2019-12-02] MEDS: PROMETHAZINE HCL 12.5 MG in SODIUM CHLORIDE 0.9% 50 ML IV PRN (01:09)
[2019-12-02] MEDS: CYCLOBENZAPRINE HCL 5 MG TAB PO PRN ×2 (04:54→23:04)
[2019-12-02] MEDS: INSULIN HUMAN NPH SC SCH ×2 (08:25→17:13)
[2019-12-02] MEDS: ATENOLOL 50 MG TABLET PO SCH (08:26)
[2019-12-02] MEDS: AMOXICILLIN/CLAVULANATE 500 MG TAB PO SCH ×2 (08:26→17:12)
[2019-12-02] MEDS: CITALOPRAM 40 MG TAB PO SCH (08:26)
--- NOTE | 2019-12-02 08:26 | Pharmacy Report ---
Pharmacy Glycemic Short Note 2 - Date of Service December 02, 2019 - Glycemic Short BSG Results (Last 24 hours): 12/01/19 12/01/19 12/01/19 11:20 16:16 20:24 POC Glucose 100 H 106 H 44 L* 12/01/19 12/01/19 12/01/19 20:26 20:44 21:00 POC Glucose 41 L* 48 L* 193 H 12/02/19 12/02/19 12/02/19 00:07 03:48 07:03 POC Glucose 112 H 83 78 OUTPATIENT ANTIDIABETIC REGIMEN: Novolog pump * A1c = 6.4 % (11/29/19) * Pump settings 11/2018: * Basal rates 4-6 units/hr (121.5 units/day) * CR: 1 unit per 2 g of CHO * CF: 10 * Of note patient required far less insulin while inpatient during that time * Plan is to return home with hospice when medically stable ASSESSMENT: * Patient received 70 units of insulin yesterday * 40 units of basal insulin * 30 units of prandial/correctional insulin * BSGs ranging 48-193 mg/dL over the past 24hrs * Fasting BSG of 78 mg/dL this morning * Will decrease NPH scale and give 15 units this morning * PLAN FOR INPATIENT GLYCEMIC CONTROL: * Basal insulin - decrease * NPH SQ BID * 15 units for BSG 110 mg/dL or less * 20 units for BSG 111-180 mg/dL * 25 units for BSG 181 mg/dL or above * Bolus insulin - loosen carb ratio * NovoLog per scale ACHS or Q6hrs while NPO * Goal Range: Low 110 mg/dL - High 140 mg/dL * Correction Factor: 15 mg/dL/unit * Nutritional / Prandial insulin per carb ratio of 1 unit per 4 grams CHO consumed PLAN FOR DISCHARGE: * pending
[2019-12-02] MEDS: INSULIN ASPART 100 UNITS/ML 3 ML PEN SC SCH ×4 (08:27→20:43)
[2019-12-02] MEDS: DOCUSATE SODIUM 100 MG CAP PO SCH ×2 (08:34→20:42)
[2019-12-02 08:41] LABS: Hematocrit (blood only) 32.4 % (37-47); Hemoglobin 10.1 g/dL (12.0-16.0); Mean Corpuscular Hemoglobin 28.8 pg (25-34); Mean Corpuscular Hgb Conc 31.2 g/dL (32-36); Mean Corpuscular Volume 92.3 fL (80-100); RDW Coefficient of Variation 16.9 % (11.5-14.5); RDW Standard Deviation 55.8 fL (36.4-46.3); Red Blood Count 3.51 M/uL (4.2-5.4); White Blood Count 11.46 K/uL (4.8-10.8)
--- NOTE | 2019-12-02 09:07 | Electrocardiogram Report ---
Test Reason : Blood Pressure : / mmHG Vent. Rate : 077 BPM Atrial Rate : 074 BPM P-R Int : 000 ms QRS Dur : 072 ms QT Int : 456 ms P-R-T Axes : 000 -02 038 degrees QTc Int : 516 ms Probable Atrial flutter with 4:1 A-V conduction Low voltage QRS Possible Anterolateral infarct , age undetermined Abnormal ECG When compared with ECG of 30-NOV-2019 09:13, HR has decreased Confirmed by Shiva De La Fuente ([id number]) on 12/02/2019 9:06:57 AM Referred By: REFERRED SELF Confirmed By:Shiva De La Fuente
[2019-12-02 09:19] LABS: BUN Creatinine Ratio 19.2 (10-20); Calcium 8.8 mg/dl (8.5-10.1); Creatinine Clr Calc Pharmacy 17.3 ml/min; Est GFR (African American) 12.8; Est GFR (Non-African American) 11.1; Magnesium 2.4 mg/dl (1.8-2.4); Phosphorus 4.9 mg/dl (2.5-4.9)
[2019-12-02 09:32] LABS: Mean Platelet Volume 9.9 fL (7.4-10.4); Platelet Count 92 K/uL (130-400)
[2019-12-02 09:33] LABS: Basophils # (auto) 0.01 K/uL (0-0.2); Basophils % (auto) 0.1 %; Eosinophils # (auto) 0.12 K/uL (0-0.5); Immature Granulocytes # (auto) 0.06 K/uL (0.00-0.02); Immature Granulocytes % (auto) 0.5 %; Lymphocytes # (auto) 0.89 K/uL (1.2-3.4); Lymphocytes % (auto) 7.8 %; Monocytes # (auto) 0.75 K/uL (0.11-0.59); Monocytes % (auto) 6.5 %; Neutrophils # (auto) 9.63 K/uL (1.4-6.5); Neutrophils % (auto) 84.1 %; Platelet Estimate Decreased (Normal)
--- NOTE | 2019-12-02 10:19 | Nephrology Progress Note ---
Date of Service December 02, 2019 Assessment & Plan (1) Acute renal failure superimposed on stage 3 chronic kidney disease: Patient with acute kidney injury on CKD. Baseline creatinine of 2. Creatinine now up to 4. This is likely progressively worsening renal function in setting of metastatic adenocarcinoma. No indication for dialysis today. Patient is not candidate for dialysis due to advanced cancer. -Monitor renal function with daily BMP (2) Hyponatremia: Due to volume overload. Restrict p.o. fluid intake to 1.2 L daily. Unable to use diuretics due to worsening renal function (3) Hypokalemia: Continue IV potassium chloride. I am adding p.o. potassium chloride powder 20 mEq today. Admission and Anticipated Discharge Date Admission Date: November 28, 2019 Subjective Patient complains of body swelling but no pain. She is vomiting but no diarrhea. She had ascitic tap of 1 L today. Review of Systems Review of Systems: All systems reviewed & are unremarkable except as noted in HPI & below Physical Exam Physical Exam: General exam: Appears comfortable, no acute distress HEENT: Pupils are equal and reactive to light Neck: No JVD, neck is supple trachea is midline Respiratory system: Clear breath sounds bilaterally. Gastrointestinal: Abdomen is distended CVS: Regular rate and rhythm. No murmurs, rubs or gallops Musculoskeletal: No joint or muscle tenderness Extremities: Non tender, 1+ edema, peripheral pulses are present Neuro: Oriented, no tremors, no focal neurological deficits Skin: No rashes Results & Data ([facility]) Vital Signs (Past 12 Hours) Vital Signs Temp Pulse Resp BP Pulse Ox 12/02/19 07:00 36.7 C 61 22 103/63 100 12/02/19 04:12 36.5 C 65 20 101/68 97 12/01/19 23:44 36.4 C L 62 18 111/68 96 Laboratory Results 12/02/19 08:20 12/02/19 12/02/19 08:20 08:20 WBC 11.46 H RBC 3.51 L MCV 92.3 MCH 28.8 MCHC 31.2 L RDW Std Deviation 55.8 H RDW Coeff of Sheyla 16.9 H Plt Count 92 L MPV 9.9 Phosphorus 4.9
[2019-12-02] MEDS: POTASSIUM CHLORIDE PWD 20 MEQ PACK PO SCH (11:53)
--- NOTE | 2019-12-02 13:10 | Hospitalist Progress Note ---
Date of Service December 02, 2019 Assessment & Plan (1) Adenocarcinoma of endometrium, stage 4: History of adenocarcinoma of the endometrium with abdominal metastasis Chronic ascites requiring periodic drainage of ascites fluid Received chemotherapy recently Current symptoms of nausea vomiting could be secondary to chemotherapy-induced Prognosis remains poor (2) Hypoglycemia: Noted to have shaking involving the upper extremities Associated fall noted to have very low blood pressure glucose level at lower 40s Possible cause seems to be administration of more insulin and less food Insulin pump discontinued Pharmacy has been consulted for diabetes management No more hypoglycemia Has been tolerating diet (3) Seizure-like activity: Admitted with seizure-like activity which seems to be secondary to h ypoglycemia EEG unremarkable Appreciate neurology input and recommendation Appreciate neurology input and recommendation Seizures ruled out (4) Vomiting: Nausea/vomiting Vomiting of coffee-ground emesis We will keep her n.p.o. Symptomatic manage Protonix drip Still having nausea and vomiting at times but no more coffee-ground emesis Questionable coffee-ground emesis Has been on Protonix drip since Hemoglobin dropped to 7.7, doubt due to ongoing bleeding Likely secondary to stress for endometrial cancer with metastasis and recent chemotherapy No more vomiting and no more coffee-ground emesis We will give 2 units of packed red cell blood transfusion Hemoglobin went up to more than 10 If nausea and vomiting persist will need to consult GI (5) Ascites: Ascites secondary to metastasis Requires drainage 2 times per week Has a peritoneal catheter in place Will aspirate 1 L daily while in the hospital Will get 2 more liters of acetic fluid out today (6) Acute renal failure superimposed on stage 3 chronic kidney disease: Acute on chronic renal impairment Getting intravenous fluid We will monitor PRP Creatinine has been worsening since admission We will get a nephrology evaluation while in the hospital Likely secondary to intravascular dehydration (7) Depression: Continue current medication (8) CHF (congestive heart failure): No evidence of any significant CHF at this (9) Hypertension: Blood pressure remains controlled DVT prophylax SCDs No pharmacologic anticoagulation due to coffee-ground vomitus CODE STATUS Conditional Discussed with the patient and the daughters Prognosis guarded (10) Atrial fibrillation with RVR: She went into atrial fibrillation early this morning with a heart rate of more than 140 EKG confirmed the diagnosis She has not been getting atenolol since yesterday She was transferred to telemetry unit and received 1 dose of intravenous Lopressor Later on she converted to sinus rhythm We will continue atenolol Reverted to sinus rhythm We will get an EKG to confirm that Admission and Anticipated Discharge Date Admission Date: November 28, 2019 Subjective 11/29/2019 The patient was seen and examined in medical floor She seemed to be restless as of this morning She has had nausea and vomiting with possible coffee-ground vomitus She was put for n.p.o. and has been getting intravenous fluids Denies any significant abdominal pain Has tremors involving both the hands and that has been chronic 11/30/2019 The patient was seen and examined in medical unit She went into A. fib with RVR this morning without any significant symptoms She has been feeling little better since admission She was transferred to telemetry unit for continuation of care 12/01/2019 The patient was seen and examined in telemetry unit She has been feeling a lot better and is out of bed on a chair Denies any significant symptoms She reverted to sinus rhythm as of yesterday 12/02/2019 The patient was seen and examined in telemetry unit She has been feeling a little better today but her kidney function and electrolytes are not any better She still complains to have nausea and vomiting Advised to have 2 more liters of acetic fluid to be taken out today Review of Systems Review of Systems: All systems reviewed and are unremarkable except as noted below Constitutional: + weakness, + anorexia and + weight gain Respiratory: + dyspnea Cardiovascular: + palpitations and + edema (Bilateral trace edema); no chest pain Gastrointestinal: + bloating, + nausea, + vomiting and + coffee ground emesis Neurologic: + tremor(s); no headache(s) and no confusion Physical Exam Physical Exam: Sitting on a chair comfortably Constitutional: well developed, well nourished, + acute distress (Secondary to respiratory distress and abdominal distress), + ill appearing and + morbidly obese Eyes: PERRL, conjunctivae normal, anicteric sclerae ENMT: external ear and nose normal, oropharynx normal Neck: trachea midline, no thyromegaly Respiratory: no respiratory distress Auscultation: + diminished lung sounds and + crackles (Minimal crackles at the bases) Cardiovascular: Rate/Rhythm: regular rate and regular rhythm Heart Sounds: no murmur Gastrointestinal (Abdomen): Inspection/Auscultation: + abdomen distended Percussion/Palpation: abdomen soft and + ascites (Moderate ascites); abdomen nontender Neurologic: moves all extremities; no focal motor deficits Speech / Cognition: normal speech Motor/Sensory: + tremor Lymphatic: no cervical or axillary lymphadenopathy Results & Data ([facility]) Vital Signs (Past 12 Hours) Vital Signs Temp Pulse Pulse Resp BP Pulse Ox 12/02/19 11:01 37.0 C 66 20 95/63 L 96 12/02/19 08:00 65 12/02/19 07:00 36.7 C 61 22 103/63 100 12/02/19 04:12 36.5 C 65 20 101/68 97 Laboratory Results Short CBC 12/02/19 Range/Units 08:20 WBC 11.46 H (4.8-10.8) K/uL Hgb 10.1 L (12.0-16.0) g/dL Hct 32.4 L (37-47) % Plt Count 92 L (130-400) K/uL BMP 12/02/19 08:20 Sodium 133 L Potassium 3.0 L Chloride 81 L Carbon Dioxide 45 H* BUN 77 H Creatinine 4.00 H Glucose 97 Calcium 8.8 Medications Administered Current Inpatient Medications Albuterol (Ventolin Hfa) 2 puffs INH Q4H PRN PRN Reason: Wheezing Stop: 12/28/19 23:26 Amoxicillin/Clavulanate Potassium (Augmentin 500mg) 1 tab PO BIDM [facility]; Protocol Stop: 12/09/19 16:59 Last Admin: 12/02/19 08:26 Dose: 1 tab Documented by: Atenolol (Tenormin) 100 mg PO QAM [facility] Stop: 12/29/19 08:59 Last Admin: 12/02/19 08:26 Dose: 100 mg Documented by: Atorvastatin Calcium (Lipitor) 80 mg PO DAILY [facility] Stop: 12/29/19 08:59 Last Admin: 11/29/19 09:55 Dose: 80 mg Documented by: Citalopram Hydrobromide (Celexa) 40 mg PO DAILY [facility] Stop: 12/29/19 08:59 Last Admin: 12/02/19 08:26 Dose: 40 mg Documented by: Cyclobenzaprine HCl (Flexeril) 5 mg PO BID PRN PRN Reason: Muscle Spasm Stop: 12/28/19 23:26 Last Admin: 12/02/19 04:54 Dose: 5 mg Documented by: Dextrose (Dextrose 50%) 25 - 50 ml IV UD PRN; Protocol PRN Reason: Hypoglycemia Protocol Stop: 12/29/19 01:59 Last Admin: 12/01/19 20:49 Dose: 50 ml Documented by: Docusate Sodium (Colace) 100 mg PO BID [facility] Stop: 12/29/19 08:59 Last Admin: 12/02/19 08:34 Dose: 100 mg Documented by: Glucagon (Glucagen) 1 mg SQ UD PRN; Protocol PRN Reason: Hypoglycemia Protocol Stop: 12/29/19 01:59 Glucose (Glucose 40%) 15 - 30 gm PO UD PRN; Protocol PRN Reason: Hypoglycemia Protocol Stop: 12/29/19 01:59 Glucose (Dex4 Glucose) 4 - 8 tabs PO UD PRN; Protocol PRN Reason: Hypoglycemia Protocol Stop: 12/29/19 01:59 Heparin Sodium (Porcine) (Heparin Sod 100 Unit/Ml Flush) 5 ml FLUSH PRN PRN PRN Reason: Flush Stop: 12/30/19 00:44 Lorazepam (Ativan) 1 mg in 2 mls @ 2 mls/min IV Q4H PRN PRN Reason: Breakthrough Seizures Stop: 12/28/19 23:26 Promethazine HCl 12.5 mg/ (Sodium Chloride) 50.5 mls @ 202 mls/hr IV Q6H PRN PRN Reason: Nausea And Vomiting Stop: 12/28/19 23:26 Last Infusion: 12/02/19 01:26 Dose: Infused Documented by: Potassium Chloride/Sodium Chloride (Normal Saline W/20 Meq Kcl) 20 meq in 1,000 mls @ 50 mls/hr IV .Q20H [facility]IO Stop: 12/29/19 08:14 Last Admin: 12/01/19 21:00 Dose: 50 mls/hr Documented by: Pantoprazole Sodium 40 mg/ (Dextrose) 100 mls @ 20 mls/hr IV Q5H [facility]IO Stop: 12/29/19 12:29 Last Admin: 12/02/19 10:57 Dose: 20 mls/hr Documented by: Potassium Chloride (K Mateo / Wtr) 10 meq in 100 mls @ 100 mls/hr IV Q1H [facility] Stop: 12/02/19 14:51 Insulin Aspart (Novolog Flexpen) 0 units SC ACHS [facility]IO Stop: 12/29/19 03:59 Last Admin: 02/10/20 11:54 Dose: Not Given Documented by: Insulin Human NPH (Novolin N Nph) 0 units SC BIDM [facility]; Protocol Stop: 01/01/20 07:59 Last Admin: 12/02/19 08:25 Dose: 15 units Documented by: Metoprolol Tartrate (Lopressor) 2.5 mg IV Q4 PRN PRN Reason: Tachycardia Stop: 12/28/19 23:26 Last Admin: 11/29/19 10:15 Dose: 2.5 mg Documented by: Miconazole Nitrate (Desenex) 1 appln EXT PRN PRN PRN Reason: Affected Skin Folds Stop: 12/29/19 03:19 Miscellaneous (Carbohydrates For Hypoglycemia) 15 - 30 gm PO UD PRN PRN Reason: Hypoglycemia Treatment Stop: 12/29/19 01:59 Last Admin: 12/01/19 20:35 Dose: 30 gm Documented by: Miscellaneous Information (Consult Glycemic Management Pharmacy) 1 ea N/A UD PRN PRN Reason: Consult Stop: 12/28/19 23:55 Nitroglycerin (Nitrostat) 0.4 mg SL UD PRN PRN Reason: Chest Pain Stop: 12/28/19 23:26 Polyethylene Glycol (Miralax Powder Packet) 17 gm PO DAILY PRN PRN Reason: Constipation Stop: 12/28/19 23:26 Potassium Chloride (Klor-Con Pwd) [facility] [place] Stop: 01/01/20 10:14 Last Admin: 12/02/19 11:53 Dose: 20 meq Documented by: Trazodone HCl (Desyrel) 75 mg PO [facility] Stop: 12/29/19 20:59 Last Admin: 12/01/19 21:00 Dose: 75 mg Documented by: (1) CHF (congestive heart failure) Heart failure chronicity: unspecified Heart failure type: unspecified Qualified Code(s): I50.9 - Heart failure, unspecified (2) Vomiting Nausea presence: unspecified Vomiting Intractability: unspecified Vomiting type: unspecified Qualified Code(s): R11.10 - Vomiting, unspecified
[2019-12-02] MEDS: POTASSIUM CHLORIDE / WTR 10 MEQ/100 ML PLCT IV SCH ×2 (13:25→14:25)
[2019-12-02] MEDS: NSS + 20MEQ KCL 20 MEQ/1,000 ML BAG IV SCH (17:12)
[2019-12-02] MEDS: DEXTROSE 50% 50 ML SYRINGE IV PRN (20:40)
[2019-12-02] MEDS: TRAZODONE HCL 50 MG TAB PO SCH (20:42)
[2019-12-02] MEDS: PANTOprazole 40 MG TAB PO SCH (20:46)
[2019-12-03] MEDS: DEXTROSE 50% 50 ML SYRINGE IV PRN (00:04)
[2019-12-03] MEDS: INSULIN HUMAN NPH SC SCH (07:28)
[2019-12-03] MEDS: CITALOPRAM 40 MG TAB PO SCH (08:38)
[2019-12-03] MEDS: POTASSIUM CHLORIDE PWD 20 MEQ PACK PO SCH ×2 (08:38→08:43)
[2019-12-03] MEDS: PANTOprazole 40 MG TAB PO SCH ×2 (08:38→20:36)
[2019-12-03] MEDS: AMOXICILLIN/CLAVULANATE 500 MG TAB PO SCH ×3 (08:38→08:49)
[2019-12-03] MEDS: ATENOLOL 50 MG TABLET PO SCH (08:38)
[2019-12-03] MEDS: INSULIN ASPART 100 UNITS/ML 3 ML PEN SC SCH ×4 (09:00→20:43)
[2019-12-03 09:21] LABS: Hematocrit (blood only) 32.7 % (37-47); Hemoglobin 10.3 g/dL (12.0-16.0); Mean Corpuscular Hemoglobin 29.3 pg (25-34); Mean Corpuscular Hgb Conc 31.5 g/dL (32-36); Mean Corpuscular Volume 93.2 fL (80-100); RDW Coefficient of Variation 16.5 % (11.5-14.5); Red Blood Count 3.51 M/uL (4.2-5.4); White Blood Count 10.76 K/uL (4.8-10.8)
[2019-12-03 09:26] LABS: Basophils # (auto) 0.01 K/uL (0-0.2); Basophils % (auto) 0.1 %; Eosinophils # (auto) 0.12 K/uL (0-0.5); Eosinophils % (auto) 1.1 %; Immature Granulocytes # (auto) 0.06 K/uL (0.00-0.02); Immature Granulocytes % (auto) 0.6 %; Lymphocytes # (auto) 1.07 K/uL (1.2-3.4); Lymphocytes % (auto) 9.9 %; Mean Platelet Volume 10.1 fL (7.4-10.4); Monocytes # (auto) 0.93 K/uL (0.11-0.59); Monocytes % (auto) 8.6 %; Neutrophils # (auto) 8.57 K/uL (1.4-6.5); Neutrophils % (auto) 79.7 %; Platelet Count 82 K/uL (130-400)
[2019-12-03 09:57] LABS: BUN Creatinine Ratio 18.5 (10-20); Calcium 8.4 mg/dl (8.5-10.1); Creatinine Clr Calc Pharmacy 17.8 ml/min; Est GFR (African American) 13.4; Est GFR (Non-African American) 11.5; Magnesium 2.3 mg/dl (1.8-2.4); Phosphorus 4.7 mg/dl (2.5-4.9); Potassium 3.4 mmol/L (3.5-5.1)
[2019-12-03] MEDS: DOCUSATE SODIUM 100 MG CAP PO SCH ×2 (10:48→20:36)
[2019-12-03] MEDS: POTASSIUM CHLORIDE / WTR 10 MEQ/100 ML PLCT IV SCH ×2 (10:51→12:24)
--- NOTE | 2019-12-03 12:15 | Hospitalist Progress Note ---
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 Chronic ascites requiring periodic drainage of ascites fluid Received chemotherapy recently Current symptoms of nausea vomiting could be secondary to chemotherapy-induced Prognosis remains poor Remains a stable but critical We will discussed the daughters for possible discharge home with hospice in a day or 2 (2) Hypoglycemia: Noted to have shaking involving the upper extremities Associated fall noted to have very low blood pressure glucose level at lower 40s Possible cause seems to be administration of more insulin and less food Insulin pump discontinued Pharmacy has been consulted for diabetes management No more hypoglycemia Has been tolerating diet Blood sugar has been running high (3) Seizure-like activity: Admitted with seizure-like activity which seems to be secondary to hypoglycemia EEG unremarkable Appreciate neurology input and recommendation Appreciate neurology input and recommendation Seizures ruled out (4) Vomiting: Nausea/vomiting Vomiting of coffee-ground emesis We will keep her n.p.o. Symptomatic manage Protonix drip Still having nausea and vomiting at times but no more coffee-ground emesis Feeling better following drainage of acetic fluid more than 3 L yesterday Questionable coffee-ground emesis Has been on Protonix drip since Hemoglobin dropped to 7.7, doubt due to ongoing bleeding Likely secondary to stress for endometrial cancer with metastasis and recent chemotherapy No more vomiting and no more coffee-ground emesis We will give 2 units of packed red cell blood transfusion Hemoglobin went up to more than 10 If nausea and vomiting persist will need to consult GI Hemoglobin remains stable We will continue Protonix twice daily (5) Ascites: Ascites secondary to metastasis Requires drainage 2 times per week Has a peritoneal catheter in place Will aspirate 1 L daily while in the hospital Will get 2 more liters of acetic fluid out today Drain is acetic fluid as directed (6) Acute renal failure superimposed on stage 3 chronic kidney disease: Acute on chronic renal impairment Getting intravenous fluid We will monitor PRP Creatinine has been worsening since admission We will get a nephrology evaluation while in the hospital Likely secondary to intravascular dehydration Kidney function is slightly better today (7) Depression: Continue current medication (8) CHF (congestive heart failure): No evidence of any significant CHF at this (9) Hypertension: Blood pressure remains controlled DVT prophylax SCDs No pharmacologic anticoagulation due to coffee-ground vomitus CODE STATUS Conditional Discussed with the patient and the daughters Prognosis guarded (10) Atrial fibrillation with RVR: She went into atrial fibrillation early this morning with a heart rate of more than 140 EKG confirmed the diagnosis She has not been getting atenolol since yesterday She was transferred to telemetry unit and received 1 dose of intravenous Lopressor Later on she converted to sinus rhythm We will continue atenolol Reverted to sinus rhythm We will get an EKG to confirm that EKG on reported as probable atrial flutter with 41 AV conduction Admission and Anticipated Discharge Date Admission Date: November 28, 2019 Anticipated date of discharge: 12/05/19 Subjective 11/29/2019 The patient was seen and examined in medical floor She seemed to be restless as of this morning She has had nausea and vomiting with possible coffee-ground vomitus She was put for n.p.o. and has been getting intravenous fluids Denies any significant abdominal pain Has tremors involving both the hands and that has been chronic 11/30/2019 The patient was seen and examined in medical unit She went into A. fib with RVR this morning without any significant symptoms She has been feeling little better since admission She was transferred to telemetry unit for continuation of care 12/01/2019 The patient was seen and examined in telemetry unit She has been feeling a lot better and is out of bed on a chair Denies any significant symptoms She reverted to sinus rhythm as of yesterday 12/02/2019 The patient was seen and examined in telemetry unit She has been feeling a little better today but her kidney function and electrolytes are not any better She still complains to have nausea and vomiting Advised to have 2 more liters of acetic fluid to be taken out today 12/02/2019 The patient was seen and examined in telemetry unit She feels fine but remains sick She wants to eat Denies any significant shortness of breath and/or nausea vomiting this morning Review of Systems Review of Systems: All systems reviewed and are unremarkable except as noted below Constitutional: + weakness, + anorexia and + weight gain Respiratory: + dyspnea Cardiovascular: + palpitations and + edema (Bilateral trace edema); no chest pain Gastrointestinal: + bloating, + nausea, + vomiting and + coffee ground emesis Neurologic: + tremor(s); no headache(s) and no confusion Physical Exam Physical Exam: Lying in bed comfortably Constitutional: well developed, well nourished, + ill appearing and + morbidly obese Eyes: PERRL, conjunctivae normal, anicteric sclerae ENMT: external ear and nose normal, oropharynx normal Neck: trachea midline, no thyromegaly Respiratory: no respiratory distress Auscultation: + diminished lung sounds and + crackles (Minimal crackles at the bases) Cardiovascular: Rate/Rhythm: regular rate and regular rhythm Heart Sounds: no murmur Gastrointestinal (Abdomen): Inspection/Auscultation: + abdomen distended and normal bowel sounds Percussion/Palpation: abdomen soft and + ascites (Modera te ascites); abdomen nontender Musculoskeletal: No acute arthritis in any joints Neurologic: moves all extremities; no focal motor deficits Speech / Cognition: normal speech Motor/Sensory: + tremor Alert awake and oriented x3. Generally weak and lethargic Lymphatic: no cervical or axillary lymphadenopathy Results & Data ([facility]) Vital Signs (Past 12 Hours) Vital Signs Temp Pulse Resp BP Pulse Ox 12/03/19 08:00 36.4 C L 60 20 110/60 96 12/03/19 04:09 36.3 C L 63 20 102/64 97 Laboratory Results Short CBC 12/03/19 Range/Units 08:50 WBC 10.76 (4.8-10.8) K/uL Hgb 10.3 L (12.0-16.0) g/dL Hct 32.7 L (37-47) % Plt Count 82 L (130-400) K/uL BMP 12/03/19 08:50 Sodium 134 L Potassium 3.4 L Chloride 84 L Carbon Dioxide 42 H* BUN 71 H Creatinine 3.86 H Glucose 95 Calcium 8.4 L Medications Administered Current Inpatient Medications Albuterol (Ventolin Hfa) 2 puffs INH Q4H PRN PRN Reason: Wheezing Stop: 12/28/19 23:26 Amoxicillin/Clavulanate Potassium (Augmentin 500mg) 1 tab PO BIDM [facility]; Protocol Stop: 12/09/19 16:59 Last Admin: 12/03/19 08:49 Dose: Not Given Documented by: Atenolol (Tenormin) 100 mg PO QAM [facility] Stop: 12/29/19 08:59 Last Admin: 12/03/19 08:38 Dose: 100 mg Documented by: Atorvastatin Calcium (Lipitor) 80 mg PO DAILY [facility] Stop: 12/29/19 08:59 Last Admin: 11/29/19 09:55 Dose: 80 mg Documented by: Citalopram Hydrobromide (Celexa) 40 mg PO DAILY [facility] Stop: 12/29/19 08:59 Last Admin: 12/03/19 08:38 Dose: 40 mg Documented by: Cyclobenzaprine HCl (Flexeril) 5 mg PO BID PRN PRN Reason: Muscle Spasm Stop: 12/28/19 23:26 Last Admin: 12/02/19 23:04 Dose: 5 mg Documented by: Dextrose (Dextrose 50%) 25 - 50 ml IV UD PRN; Protocol PRN Reason: Hypoglycemia Protocol Stop: 12/29/19 01:59 Last Admin: 12/03/19 00:04 Dose: 50 ml Documented by: Docusate Sodium (Colace) 100 mg PO BID [facility] Stop: 12/29/19 08:59 Last Admin: 12/03/19 10:48 Dose: 100 mg Documented by: Glucagon (Glucagen) 1 mg SQ UD PRN; Protocol PRN Reason: Hypoglycemia Protocol Stop: 12/29/19 01:59 Glucose (Glucose 40%) 15 - 30 gm PO UD PRN; Protocol PRN Reason: Hypoglycemia Protocol Stop: 12/29/19 01:59 Glucose (Dex4 Glucose) 4 - 8 tabs PO UD PRN; Protocol PRN Reason: Hypoglycemia Protocol Stop: 12/29/19 01:59 Heparin Sodium (Porcine) (Heparin Sod 100 Unit/Ml Flush) 5 ml FLUSH PRN PRN PRN Reason: Flush Stop: 12/30/19 00:44 Lorazepam (Ativan) 1 mg in 2 mls @ 2 mls/min IV Q4H PRN PRN Reason: Breakthrough Seizures Stop: 12/28/19 23:26 Promethazine HCl 12.5 mg/ (Sodium Chloride) 50.5 mls @ 202 mls/hr IV Q6H PRN PRN Reason: Nausea And Vomiting Stop: 12/28/19 23:26 Last Infusion: 12/02/19 01:26 Dose: Infused Documented by: Potassium Chloride/Sodium Chloride (Normal Saline W/20 Meq Kcl) 20 meq in 1,000 mls @ 50 mls/hr IV .Q20H [facility] Stop: 12/29/19 08:14 Last Admin: 12/02/19 17:12 Dose: 50 mls/hr Documented by: Potassium Chloride (K Mateo / Wtr) 10 meq in 100 mls @ 100 mls/hr IV Q1H [facility] Stop: 12/03/19 12:29 Last Admin: 12/03/19 10:51 Dose: 100 mls/hr Documented by: Insulin Aspart (Novolog Flexpen) 0 units SC ACHS [facility] Stop: 12/29/19 03:59 Last Admin: 12/03/19 09:00 Dose: 2 units Documented by: Insulin Human NPH (Novolin N Nph) 0 units SC BIDM [facility]; Protocol Stop: 01/01/20 07:59 Last Admin: 12/03/19 07:28 Dose: Not Given Documented by: Metoprolol Tartrate (Lopressor) 2.5 mg IV Q4 PRN PRN Reason: Tachycardia Stop: 12/28/19 23:26 Last Admin: 11/29/19 10:15 Dose: 2.5 mg Documented by: Miconazole Nitrate (Desenex) 1 appln EXT PRN PRN PRN Reason: Affected Skin Folds Stop: 12/29/19 03:19 Miscellaneous (Carbohydrates For Hypoglycemia) 15 - 30 gm PO UD PRN PRN Reason: Hypoglycemia Treatment Stop: 12/29/19 01:59 Last Admin: 12/01/19 20:35 Dose: 30 gm Documented by: Miscellaneous Information (Consult Glycemic Management Pharmacy) 1 ea N/A UD PRN PRN Reason: Consult Stop: 12/28/19 23:55 Nitroglycerin (Nitrostat) 0.4 mg SL UD PRN PRN Reason: Chest Pain Stop: 12/28/19 23:26 Pantoprazole Sodium (Protonix) 40 mg PO BID [facility] Stop: 01/01/20 20:59 Last Admin: 12/03/19 08:38 Dose: 40 mg Documented by: Polyethylene Glycol (Miralax Powder Packet) 17 gm PO DAILY PRN PRN Reason: Constipation Stop: 12/28/19 23:26 Potassium Chloride (Klor-Con Pwd) 20 meq PO QAM [facility] Stop: 01/01/20 10:14 Last Admin: 12/03/19 08:43 Dose: Not Given Documented by: Trazodone HCl (Desyrel) 75 mg PO HS [facility] Stop: 12/29/19 20:59 Last Admin: 12/02/19 20:42 Dose: Not Given Documented by: (1) Vomiting Nausea presence: unspecified Vomiting Intractability: unspecified Vomiting type: unspecified Qualified Code(s): R11.10 - Vomiting, unspecified (2) CHF (congestive heart failure) Heart failure chronicity: unspecified Heart failure type: unspecified Qualified Code(s): I50.9 - Heart failure, unspecified
[2019-12-03] MEDS: NSS + 20MEQ KCL 20 MEQ/1,000 ML BAG IV SCH (12:26)
--- NOTE | 2019-12-03 15:12 | Nephrology Progress Note ---
Date of Service December 03, 2019 Assessment & Plan (1) Acute renal failure superimposed on stage 3 chronic kidney disease: Patient with acute kidney injury on CKD. Baseline creatinine of 2. Creatinine peaked at 4.3 48 hrs after 11/28 admission, now gradually down trending to 3.9 today. This is likely progressive worsening renal function in setting of metastatic adenocarcinoma. Patient is not candidate for dialysis due to advanced cancer. -Monitor renal function with daily BMP -consider palliative care consult if indicated for discussion of goals of care (2) Hypokalemia: Continue IV and PO potassium chloride. Low threshold for ABG cont to check mag periodically > at goal (3) Disorders of fluid, electrolyte, and acid-base balance: hypokalemia as above chronic and mild hyponatremia w/ sNa 134 today, ranging 132-134 > monitor; would not restrict fluid unless sodium worsens despite volume overload; do continue strict I/O. ALSO with extremely high C02, though improving > low threshold for ABG mary alice if MS changes Present on Admission?: Yes Admission and Anticipated Discharge Date Admission Date: November 28, 2019 Anticipated date of discharge: 12/05/19 Subjective denies uncontrolled pain, sob, nausea, voiding concerns Review of Systems Review of Systems: All systems reviewed & are unremarkable except as noted in HPI & below Physical Exam Constitutional: well developed and well nourished lying flat on RA, sleeping and difficult but ultimately arouses fully Eyes: EOM intact bilaterally ENMT: Ears: no external ear abnormality Nose: no external nose abnormality Mouth: + dry oral mucous membranes Neck: no nuchal rigidity Respiratory: normal respiratory effort Auscultation: lungs clear to auscultation bilaterally and + diminished lung sounds Cardiovascular: Rate/Rhythm: regular rate and regular rhythm Extremities: + edema (trace BLE) Gastrointestinal (Abdomen): Inspection/Auscultation: normal bowel sounds Percussion/Palpation: abdomen soft; abdomen nontender emesis bag at bedside Musculoskeletal: Extremities: strength 5/5 throughout Skin: no rashes, warm and dry + turgor decreased Neurologic: granger, fluent though limited/monosyllabic speech, no tremor Psychiatric: Orientation: oriented to person and oriented to place Affect: + constricted affect Results & Data ([facility]) Vital Signs (Past 12 Hours) Vital Signs Temp Pulse Resp BP Pulse Ox 12/03/19 12:10 36.7 C 74 18 115/63 98 12/03/19 08:00 36.4 C L 60 20 110/60 96 12/03/19 04:09 36.3 C L 63 20 102/64 97 Laboratory Results 12/03/19 08:50 12/03/19 08:50 C02 was 51 on 11/30, down trend ever since (1) Acute renal failure superimposed on stage 3 chronic kidney disease Acute renal failure type: unspecified Qualified Code(s): N17.9 - Acute kidney failure, unspecified; N18.3 - Chronic kidney disease, stage 3 (moderate)
--- NOTE | 2019-12-03 15:15 | Pharmacy Report ---
Pharmacy Glycemic Short Note 2 - Date of Service December 03, 2019 - Glycemic Short BSG Results (Last 24 hours): 12/02/19 12/02/19 12/02/19 16:09 20:19 20:20 Glucose POC Glucose 88 67 L* 50 L* 12/02/19 12/02/19 12/02/19 20:30 20:53 23:57 Glucose POC Glucose 53 L* 180 H 54 L* 12/03/19 12/03/19 12/03/19 00:21 04:07 07:26 Glucose POC Glucose 201 H 70 84 12/03/19 12/03/19 12/03/19 08:46 08:50 11:22 Glucose 95 POC Glucose 179 H 307 H* 12/03/19 14:25 Glucose POC Glucose 98 OUTPATIENT ANTIDIABETIC REGIMEN: Novolog pump * A1c = 6.4 % (11/29/19) * Pump settings 11/2018: * Basal rates 4-6 units/hr (121.5 units/day) * CR: 1 unit per 2 g of CHO * CF: 10 * Of note patient required far less insulin while inpatient during that time * Plan is to return home with hospice when medically stable ASSESSMENT: * Patient received 33 units of insulin yesterday * 30 units of basal insulin (NPH) * 3 units of prandial/correctional insulin * BSGs ranging 50-201 mg/dL over the past 24hrs * Fasting BSG of 70 mg/dL this morning * Lows observed overnight - 50,54 mg/dL - will d/c NPH and consider low dose Lantus scale this evening * Will remove correction factor starting with dinner * Goal moving forward to avoid hypoglycemia PLAN FOR INPATIENT GLYCEMIC CONTROL: * Basal insulin - decrease * Lantus scale HS (see EHR for details) * Bolus insulin - remove correction factor * NovoLog per scale ACHS or Q6hrs while NPO * Goal Range: Low 110 mg/dL - High 140 mg/dL * Correction Factor: _ mg/dL/unit * Nutritional / Prandial insulin per carb ratio of 1 unit per 4 grams CHO consumed PLAN FOR DISCHARGE: * Plan is for discharge home with Hospice and for patient's daughters to manage insulin pump.
[2019-12-03] MEDS: TRAZODONE HCL 50 MG TAB PO SCH (20:36)
[2019-12-03] MEDS: INSULIN GLARGINE SOLOSTAR 100 UNITS/ML 3 ML PEN SC SCH (20:43)
[2019-12-03] MEDS: CYCLOBENZAPRINE HCL 5 MG TAB PO PRN (23:19)
[2019-12-04] MEDS: AMOXICILLIN/CLAVULANATE 500 MG TAB PO SCH ×2 (08:19→17:34)
[2019-12-04] MEDS: CITALOPRAM 40 MG TAB PO SCH (08:20)
[2019-12-04] MEDS: NSS + 20MEQ KCL 20 MEQ/1,000 ML BAG IV SCH (08:20)
[2019-12-04] MEDS: INSULIN ASPART 100 UNITS/ML 3 ML PEN SC SCH ×4 (08:20→20:24)
[2019-12-04] MEDS: POTASSIUM CHLORIDE PWD 20 MEQ PACK PO SCH (08:21)
[2019-12-04] MEDS: PANTOprazole 40 MG TAB PO SCH ×2 (08:21→20:26)
[2019-12-04] MEDS: ATENOLOL 50 MG TABLET PO SCH (08:21)
[2019-12-04] MEDS: DOCUSATE SODIUM 100 MG CAP PO SCH ×2 (08:24→20:25)
[2019-12-04] MEDS: PROMETHAZINE HCL 12.5 MG in SODIUM CHLORIDE 0.9% 50 ML IV PRN ×2 (09:23→15:19)
--- NOTE | 2019-12-04 10:54 | Pharmacy Report ---
Pharmacy Glycemic Short Note 2 - Date of Service December 04, 2019 - Glycemic Short BSG Results (Last 24 hours): 12/03/19 12/03/19 12/03/19 11:22 14:25 16:07 POC Glucose 307 H* 98 73 12/03/19 12/03/19 12/04/19 19:16 20:15 00:08 POC Glucose 94 82 118 H 12/04/19 12/04/19 04:03 07:20 POC Glucose 156 H 144 H OUTPATIENT ANTIDIABETIC REGIMEN: Novolog pump * A1c = 6.4 % (11/29/19) * Pump settings 11/2018: * Basal rates 4-6 units/hr (121.5 units/day) * CR: 1 unit per 2 g of CHO * CF: 10 * Of note patient required far less insulin while inpatient during that time * Plan is to return home with hospice when medically stable ASSESSMENT: * Patient received 18 units of insulin yesterday * 0 units of basal insulin * 18 units of prandial/correctional insulin * BSGs ranging 70-307 mg/dL (questioning reliability of 307 value given other BSGs on 12/03) * Fasting BSG of 144 mg/dL this morning * No hypoglycemia observed overnight * Will dose insulin with overall goal of limiting/avoiding hypoglycemia PLAN FOR INPATIENT GLYCEMIC CONTROL: * Basal insulin * conservative Lantus scale HS (see EHR for details) * Bolus insulin - * NovoLog per scale ACHS or Q6hrs while NPO * Goal Range: Low 140 mg/dL - High 180 mg/dL * Correction Factor: 30 mg/dL/unit * Nutritional / Prandial insulin per carb ratio of 1 unit per 8 grams CHO consumed PLAN FOR DISCHARGE: * Plan is for discharge home with Hospice and for patient's daughters to manage insulin pump.
[2019-12-04 14:13] LABS: Hematocrit (blood only) 31.8 % (37-47); Hemoglobin 9.7 g/dL (12.0-16.0); Mean Corpuscular Hemoglobin 28.9 pg (25-34); Mean Corpuscular Hgb Conc 30.5 g/dL (32-36); Mean Corpuscular Volume 94.6 fL (80-100); RDW Coefficient of Variation 16.5 % (11.5-14.5); RDW Standard Deviation 56.6 fL (36.4-46.3); Red Blood Count 3.36 M/uL (4.2-5.4); White Blood Count 8.56 K/uL (4.8-10.8)
[2019-12-04 14:33] LABS: Calcium 8.2 mg/dl (8.5-10.1); Creatinine Clr Calc Pharmacy 17.3 ml/min; Est GFR (African American) 13.1; Est GFR (Non-African American) 11.3
[2019-12-04 14:42] LABS: Mean Platelet Volume 10.1 fL (7.4-10.4); Platelet Count 65 K/uL (130-400); Platelet Estimate Decreased (Normal)
--- NOTE | 2019-12-04 14:55 | Nephrology Progress Note ---
Date of Service December 04, 2019 Assessment & Plan (1) Acute renal failure superimposed on stage 3 chronic kidney disease: Patient with acute kidney injury on CKD. Baseline creatinine of 2. Creatinine peaked at 4.3 48 hrs after 11/28 admission, now gradually down trending to 3.9 today. This is likely progressive worsening renal function in setting of metastatic adenocarcinoma. Patient is not candidate for dialysis due to advanced cancer. -Monitor renal function with daily BMP -consider palliative care consult if indicated for discussion of goals of care (2) Hypokalemia: K is better at 4. Stop IV potassium. Continue PO potassium chloride. cont to check mag periodically > at goal (3) Disorders of fluid, electrolyte, and acid-base balance: hypokalemia as above chronic and mild hyponatremia w/ sNa 134 today, ranging 132-134 > monitor; would not restrict fluid unless sodium worsens despite volume overload; do continue strict I/O. ALSO with extremely high C02, though improving > low threshold for ABG mary alice if MS changes Admission and Anticipated Discharge Date Admission Date: November 28, 2019 Anticipated date of discharge: 12/05/19 Subjective No new complaints. She continues to have abdominal swelling and discomfort. No shortness of breath. Review of Systems Review of Systems: All systems reviewed & are unremarkable except as noted in HPI & below Physical Exam Physical Exam: General exam: Appears comfortable, no acute distress HEENT: Pupils are equal and reactive to light Neck: No JVD, neck is supple trachea is midline Respiratory system: Clear breath sounds bilaterally. Gastrointestinal: Abdomen is distended, non tender, bowel sounds are present CVS: Regular rate and rhythm. No murmurs, rubs or gallops Musculoskeletal: No joint or muscle tenderness Extremities: Non tender, 1+ edema, peripheral pulses are present Neuro: Oriented, no tremors, no focal neurological deficits Skin: No rashes Results & Data ([facility]) Vital Signs (Past 12 Hours) Vital Signs Temp Pulse Resp BP Pulse Ox 12/04/19 11:27 36.5 C 72 18 104/69 94 12/04/19 07:48 36.6 C 59 L 20 99/62 L 89 L 12/04/19 04:06 36.5 C 54 L 20 114/72 98 Laboratory Results 12/04/19 14:01 12/04/19 14:01 WBC 8.56 RBC 3.36 L MCV 94.6 MCH 28.9 MCHC 30.5 L RDW Std Deviation 56.6 H RDW Coeff of Sheyla 16.5 H Plt Count 65 L MPV 10.1 (1) Acute renal failure superimposed on stage 3 chronic kidney disease Acute renal failure type: unspecified Qualified Code(s): N17.9 - Acute kidney failure, unspecified; N18.3 - Chronic kidney disease, stage 3 (moderate)
--- NOTE | 2019-12-04 16:54 | Hospitalist Progress Note ---
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 Chronic ascites requiring periodic drainage of ascites fluid Received chemotherapy recently Current symptoms of nausea vomiting could be secondary to chemotherapy-induced Prognosis remains poor Remains a stable but critical Discussed with the pt and daughter possible discharge home with hospice in next 1 to 2 days (2) Hypoglycemia: Noted to have shaking involving the upper extremities Associated fall noted to have very low blood pressure glucose level at lower 40s Possible cause seems to be administration of more insulin and less food Insulin pump discontinued Pharmacy has been consulted for diabetes management No more hypoglycemia Has been tolerating diet Blood sugar has been running high (3) Seizure-like activity: Admitted with seizure-like activity which seems to be secondary to hypoglycemia EEG unremarkable Appreciate neurology input and recommendation Seizures ruled out (4) Vomiting: Nausea/vomiting Vomiting of coffee-ground emesis earlier during her admission At that time kept n.p.o. Symptomatic manage Protonix drip Still having nausea and vomiting at times but no more coffee-ground emesis Feeling better following drainage of ascetic fluid more than 3 L Questionable coffee-ground emesis Has been on Protonix drip since Hemoglobin dropped to 7.7, doubt due to ongoing bleeding Likely secondary to stress for endometrial cancer with metastasis and recent chemotherapy No more vomiting and no more coffee-ground emesis Received 2 units of packed red cell blood transfusion Hemoglobin went up to more than 10 If nausea and vomiting persist will need to consult GI Hemoglobin remains stable We will continue Protonix twice daily (5) Ascites: Ascites secondary to metastasis Requires drainage 2 times per week Has a peritoneal catheter in place Will aspirate 1 L daily while in the hospital Will get 2 more liters of acetic fluid out today Drain is acetic fluid as directed (6) Acute renal failure superimposed on stage 3 chronic kidney disease: Acute on chronic renal impairment Getting intravenous fluid We will monitor PRP Creatinine has been worsening since admission We will get a nephrology evaluation while in the hospital Likely secondary to intravascular dehydration Kidney function is slightly better today (7) Depression: Continue current medication (8) CHF (congestive heart failure): No evidence of any significant CHF at this (9) Hypertension: Blood pressure remains controlled DVT prophylax SCDs No pharmacologic anticoagulation due to coffee-ground vomitus CODE STATUS Conditional Discussed with the patient and the daughters Prognosis guarded (10) Atrial fibrillation with RVR: She went into atrial fibrillation with a heart rate of more than 140 earlier during this admission EKG confirmed the diagnosis She has not been getting atenolol at that time She was transferred to telemetry unit and received 1 dose of intravenous Lopressor Later on she converted to sinus rhythm We will continue atenolol Reverted to sinus rhythm EKG to confirm that EKG on reported as probable atrial flutter with 41 AV conduction Admission and Anticipated Discharge Date Admission Date: November 28, 2019 Anticipated date of discharge: 12/05/19 Subjective 12/01/2019 The patient was seen and examined in telemetry unit She has been feeling a lot better and is out of bed on a chair Denies any significant symptoms She reverted to sinus rhythm as of yesterday 12/02/2019 The patient was seen and examined in telemetry unit She has been feeling a little better today but her kidney function and electrolytes are not any better She still complains to have nausea and vomiting Advised to have 2 more liters of acetic fluid to be taken out today 12/03/2019 The patient was seen and examined in telemetry unit She feels fine but remains sick She wants to eat Denies any significant shortness of breath and/or nausea vomiting this morning 12/04 Patient sitting in bed, in no acute distress. Her daughter is at the bedside. Patient currently denies any fevers, chills, chest pain, shortness of breath, incr. abdominal pain. She says that recently they drained her ascitic fluid. She remained clear liquid diet as that she could tolerate. She is very eager to try some solid food, agreed to try toast. Counseled her and her daughter not to try any heavy foods as this will likely cause her more nausea and vomiting. Review of Systems Review of Systems: All systems reviewed & are unremarkable except as noted in HPI & below All systems reviewed and are unremarkable except as noted below Constitutional: + weakness Cardiovascular: + edema (Bilateral trace edema); no chest pain Gastrointestinal: + bloating and + nausea; no vomiting Neurologic: + tremor(s); no headache(s) and no confusion Physical Exam Physical Exam: Physical Exam: elderly obese female, sitting up in bed, in NAD Constitutional: well developed, well nourished, + ill appearing and + morbidly obese Eyes: PERRL, EOMI, conjunctivae normal, anicteric sclerae ENMT: external ear and nose normal, oropharynx normal Neck: trachea midline, no thyromegaly Respiratory: no respiratory distress Auscultation: + diminished lung sounds and + crackles (Minimal crackles at the bases) Cardiovascular: Rate/Rhythm: regular rate and regular rhythm Heart Sounds: no murmur Gastrointestinal (Abdomen): Inspection/Auscultation: + abdomen distended and normal bowel sounds Percussion/Palpation: abdomen soft and + ascites (Moderate ascites); abdomen nontender Musculoskeletal: No acute arthritis in any joints, moves all 4 extremities spontaneously Neurologic: moves all extremities; no focal motor deficits Speech / Cognition: normal speech Motor/Sensory: + tremor Alert awake and oriented x3. Generally weak and lethargic Lymphatic: no cervical or axillary lymphadenopathy Results & Data ([facility]) Vital Signs (Past 12 Hours) Vital Signs Temp Pulse Resp BP Pulse Ox 12/04/19 15:30 36.4 C L 63 18 102/67 96 12/04/19 11:27 36.5 C 72 18 104/69 94 12/04/19 07:48 36.6 C 59 L 20 99/62 L 89 L Laboratory Results 12/04/19 12/04/19 12/04/19 Range/Units 15:54 14:01 14:01 WBC 8.56 (4.8-10.8) K/uL RBC 3.36 L (4.2-5.4) M/uL Hgb 9.7 L (12.0-16.0) g/dL Hct 31.8 L (37-47) % MCV 94.6 (80-100) fL MCH 28.9 (25-34) pg MCHC 30.5 L (32-36) g/dL RDW Std Deviation 56.6 H (36.4-46.3) fL RDW Coeff of Sheyla 16.5 H (11.5-14.5) % Plt Count 65 L (130-400) K/uL MPV 10.1 (7.4-10.4) fL Platelet Estimate Decreased L (Normal) Sodium 134 L (136-145) mmol/L Potassium 4.0 D (3.5-5.1) mmol/L Chloride 86 L (98-107) mmol/L Carbon Dioxide 38 H (21-32) mmol/L Anion Gap 10.0 (3-11) BUN 71 H (7-18) mg/dl Creatinine 3.93 H (0.6-1.2) mg/dl Est Cr Clr Drug Dosing 17.3 ml/min Est GFR ( Amer) 13.1 Est GFR (Non-Af Amer) 11.3 POC Glucose 256 H (70-99) mg/dl Fasting Glucose 221 H (70-99) mg/dl Calcium 8.2 L (8.5-10.1) mg/dl 12/04/19 12/04/19 12/04/19 Range/Units 11:22 07:20 04:03 WBC (4.8-10.8) K/uL RBC (4.2-5.4) M/uL Hgb (12.0-16.0) g/dL Hct (37-47) % MCV (80-100) fL MCH (25-34) pg MCHC (32-36) g/dL RDW Std Deviation (36.4-46.3) fL RDW Coeff of Sheyla (11.5-14.5) % Plt Count (130-400) K/uL MPV (7.4-10.4) fL Platelet Estimate (Normal) Sodium (136-145) mmol/L Potassium (3.5-5.1) mmol/L Chloride (98-107) mmol/L Carbon Dioxide (21-32) mmol/L Anion Gap (3-11) BUN (7-18) mg/dl Creatinine (0.6-1.2) mg/dl Est Cr Clr Drug Dosing ml/min Est GFR ( Amer) Est GFR (Non-Af Amer) POC Glucose 229 H 144 H 156 H (70-99) mg/dl Fasting Glucose (70-99) mg/dl Calcium (8.5-10.1) mg/dl 12/04/19 12/03/19 12/03/19 Range/Units 00:08 20:15 19:16 WBC (4.8-10.8) K/uL RBC (4.2-5.4) M/uL Hgb (12.0-16.0) g/dL Hct (37-47) % MCV (80-100) fL MCH (25-34) pg MCHC (32-36) g/dL RDW Std Deviation (36.4-46.3) fL RDW Coeff of Sheyla (11.5-14.5) % Plt Count (130-400) K/uL MPV (7.4-10.4) fL Platelet Estimate (Normal) Sodium (136-145) mmol/L Potassium (3.5-5.1) mmol/L Chloride (98-107) mmol/L Carbon Dioxide (21-32) mmol/L Anion Gap (3-11) BUN (7-18) mg/dl Creatinine (0.6-1.2) mg/dl Est Cr Clr Drug Dosing ml/min Est GFR ( Amer) Est GFR (Non-Af Amer) POC Glucose 118 H 82 94 (70-99) mg/dl Fasting Glucose (70-99) mg/dl Calcium (8.5-10.1) mg/dl Medications Administered Current Inpatient Medications Albuterol (Ventolin Hfa) 2 puffs INH Q4H PRN PRN Reason: Wheezing Stop: 12/28/19 23:26 Amoxicillin/Clavulanate Potassium (Augmentin 500mg) 1 tab PO BIDM [facility]; Protocol Stop: 12/09/19 16:59 Last Admin: 12/04/19 08:19 Dose: 1 tab Documented by: Atenolol (Tenormin) 100 mg PO QAM [facility] Stop: 12/29/19 08:59 Last Admin: 12/04/19 08:21 Dose: Not Given Documented by: Atorvastatin Calcium (Lipitor) 80 mg PO DAILY [facility] Stop: 12/29/19 08:59 Last Admin: 11/29/19 09:55 Dose: 80 mg Documented by: Citalopram Hydrobromide (Celexa) 40 mg PO DAILY [facility] Stop: 12/29/19 08:59 Last Admin: 12/04/19 08:20 Dose: 40 mg Documented by: Cyclobenzaprine HCl (Flexeril) 5 mg PO BID PRN PRN Reason: Muscle Spasm Stop: 12/28/19 23:26 Last Admin: 12/03/19 23:19 Dose: 5 mg Documented by: Dextrose (Dextrose 50%) 25 - 50 ml IV UD PRN; Protocol PRN Reason: Hypoglycemia Protocol Stop: 12/29/19 01:59 Last Admin: 12/03/19 00:04 Dose: 50 ml Documented by: Docusate Sodium (Colace) 100 mg PO BID [facility] Stop: 12/29/19 08:59 Last Admin: 12/04/19 08:24 Dose: 100 mg Documented by: Glucagon (Glucagen) 1 mg SQ UD PRN; Protocol PRN Reason: Hypoglycemia Protocol Stop: 12/29/19 01:59 Glucose (Glucose 40%) 15 - 30 gm PO UD PRN; Protocol PRN Reason: Hypoglycemia Protocol Stop: 12/29/19 01:59 Glucose (Dex4 Glucose) 4 - 8 tabs PO UD PRN; Protocol PRN Reason: Hypoglycemia Protocol Stop: 12/29/19 01:59 Heparin Sodium (Porcine) (Heparin Sod 100 Unit/Ml Flush) 5 ml FLUSH PRN PRN PRN Reason: Flush Stop: 12/30/19 00:44 Lorazepam (Ativan) 1 mg in 2 mls @ 2 mls/min IV Q4H PRN PRN Reason: Breakthrough Seizures Stop: 12/28/19 23:26 Promethazine HCl 12.5 mg/ (Sodium Chloride) 50.5 mls @ 202 mls/hr IV Q6H PRN PRN Reason: Nausea And Vomiting Stop: 12/28/19 23:26 Last Infusion: 12/04/19 15:34 Dose: Infused Documented by: Insulin Aspart (Novolog Flexpen) 0 units SC [facility] Stop: 12/29/19 03:59 Last Admin: 12/04/19 12:42 Dose: 7 units Documented by: Insulin Glargine (Lantus Solostar Pen) 0 units SC [facility]; Protocol Stop: 01/02/20 20:59 Last Admin: 12/03/19 20:43 Dose: Not Given Documented by: Metoprolol Tartrate (Lopressor) 2.5 mg IV Q4 PRN PRN Reason: Tachycardia Stop: 12/28/19 23:26 Last Admin: 11/29/19 10:15 Dose: 2.5 mg Documented by: Miconazole Nitrate (Desenex) 1 appln EXT PRN PRN PRN Reason: Affected Skin Folds Stop: 12/29/19 03:19 Miscellaneous (Carbohydrates For Hypoglycemia) 15 - 30 gm PO UD PRN PRN Reason: Hypoglycemia Treatment Stop: 12/29/19 01:59 Last Admin: 12/01/19 20:35 Dose: 30 gm Documented by: Miscellaneous Information (Consult Glycemic Management Pharmacy) 1 ea N/A UD PRN PRN Reason: Consult Stop: 12/28/19 23:55 Nitroglycerin (Nitrostat) 0.4 mg SL UD PRN PRN Reason: Chest Pain Stop: 12/28/19 23:26 Pantoprazole Sodium (Protonix) 40 mg PO BID [facility] Stop: 01/01/20 20:59 Last Admin: 12/04/19 08:21 Dose: 40 mg Documented by: Polyethylene Glycol (Miralax Powder Packet) 17 gm PO DAILY PRN PRN Reason: Constipation Stop: 12/28/19 23:26 Potassium Chloride (Klor-Con Pwd) 20 meq PO QAM [facility] Stop: 01/01/20 10:14 Last Admin: 12/04/19 08:21 Dose: Not Given Documented by: Trazodone HCl (Desyrel) 75 mg PO HS [facility] Stop: 12/29/19 20:59 Last Admin: 12/03/19 20:36 Dose: 75 mg Documented by: (1) Vomiting Nausea presence: unspecified Vomiting Intractability: unspecified Vomiting type: unspecified Qualified Code(s): R11.10 - Vomiting, unspecified (2) Acute renal failure superimposed on stage 3 chronic kidney disease Acute renal failure type: unspecified Qualified Code(s): N17.9 - Acute kidney failure, unspecified; N18.3 - Chronic kidney disease, stage 3 (moderate) (3) CHF (congestive heart failure) Heart failure chronicity: unspecified Heart failure type: unspecified Qualified Code(s): I50.9 - Heart failure, unspecified
[2019-12-04] MEDS: INSULIN GLARGINE SOLOSTAR 100 UNITS/ML 3 ML PEN SC SCH (20:25)
[2019-12-04] MEDS: TRAZODONE HCL 50 MG TAB PO SCH (20:26)
[2019-12-05] MEDS ORDERED: INSULIN ASPART 100 UNITS/ML 3 ML PEN SC ONE (02:00)
[2019-12-05 06:08] LABS: Hematocrit (blood only) 30.8 % (37-47); Hemoglobin 9.4 g/dL (12.0-16.0); Mean Corpuscular Hemoglobin 28.8 pg (25-34); Mean Corpuscular Hgb Conc 30.5 g/dL (32-36); Mean Corpuscular Volume 94.5 fL (80-100); RDW Coefficient of Variation 16.6 % (11.5-14.5); RDW Standard Deviation 56.2 fL (36.4-46.3); Red Blood Count 3.26 M/uL (4.2-5.4); White Blood Count 6.44 K/uL (4.8-10.8)
[2019-12-05 06:20] LABS: Platelet Count 69 K/uL (130-400)
[2019-12-05 06:39] LABS: Calcium 8.4 mg/dl (8.5-10.1); Creatinine Clr Calc Pharmacy 18.3 ml/min; Est GFR (African American) 13.8; Est GFR (Non-African American) 11.9; Potassium 3.7 mmol/L (3.5-5.1)
[2019-12-05] MEDS: INSULIN ASPART 100 UNITS/ML 3 ML PEN SC SCH ×2 (08:01→12:05)
[2019-12-05] MEDS: ATENOLOL 50 MG TABLET PO SCH ×2 (08:02→08:10)
[2019-12-05] MEDS: AMOXICILLIN/CLAVULANATE 500 MG TAB PO SCH (08:02)
[2019-12-05] MEDS: DOCUSATE SODIUM 100 MG CAP PO SCH (08:02)
[2019-12-05] MEDS: PANTOprazole 40 MG TAB PO SCH (08:03)
[2019-12-05] MEDS: CITALOPRAM 40 MG TAB PO SCH (08:03)
[2019-12-05] MEDS: POTASSIUM CHLORIDE PWD 20 MEQ PACK PO SCH (08:04)
[2019-12-05] MEDS: PROMETHAZINE HCL 12.5 MG in SODIUM CHLORIDE 0.9% 50 ML IV PRN (09:38)
--- NOTE | 2019-12-05 10:07 | Nephrology Progress Note ---
Date of Service December 05, 2019 Assessment & Plan (1) Acute renal failure superimposed on stage 3 chronic kidney disease: Patient with acute kidney injury on CKD. Baseline creatinine of 2. Creatinine peaked at 4.3 48 hrs after 11/28 admission, now gradually down trending to 3.7 today. This is likely progressive worsening renal function in setting of metastatic adenocarcinoma. Patient is not candidate for dialysis due to advanced cancer. -Monitor renal function with daily BMP -consider palliative care consult if indicated for discussion of goals of care (2) Hypokalemia: K is better at 3.7. Continue PO potassium chloride. cont to check mag periodically > at goal (3) Disorders of fluid, electrolyte, and acid-base balance: hypokalemia as above chronic and mild hyponatremia w/ sNa 135 today, r anging 132-134 > monitor; would not restrict fluid unless sodium worsens despite volume overload; do continue strict I/O. ALSO with extremely high C02, though improving > low threshold for ABG mary alice if MS changes Admission and Anticipated Discharge Date Admission Date: November 28, 2019 Anticipated date of discharge: 12/05/19 Subjective Patient seen and examined at the bedside. She denies any vomiting or diarrhea. No shortness of breath. Still has abdominal distention and leg swelling. Creatinine slightly better today at 3.7 Review of Systems Review of Systems: All systems reviewed & are unremarkable except as noted in HPI & below Physical Exam Physical Exam: General exam: Appears comfortable, no acute distress HEENT: Pupils are equal and reactive to light Neck: No JVD, neck is supple trachea is midline Respiratory system: Clear breath sounds bilaterally. Gastrointestinal: Abdomen is distended, non tender, bowel sounds are present CVS: Regular rate and rhythm. No murmurs, rubs or gallops Musculoskeletal: No joint or muscle tenderness Extremities: Non tender, 1+ edema, peripheral pulses are present Neuro: Oriented, no tremors, no focal neurological deficits Skin: No rashes Results & Data ([facility]) Vital Signs (Past 12 Hours) Vital Signs Temp Pulse Pulse Resp BP Pulse Ox 12/05/19 09:46 58 L 12/05/19 08:05 36.7 C 57 L 20 91/52 L 92 12/05/19 02:56 36.5 C 59 L 20 117/73 94 12/05/19 01:00 60 12/04/19 23:05 36.6 C 66 18 99/60 L 96 Laboratory Results 12/05/19 05:42 12/04/19 12/05/19 14:01 05:42 WBC 8.56 6.44 RBC 3.36 L 3.26 L MCV 94.6 94.5 MCH 28.9 28.8 MCHC 30.5 L 30.5 L RDW Std Deviation 56.6 H 56.2 H RDW Coeff of Sheyla 16.5 H 16.6 H Plt Count 65 L 69 L MPV 10.1 10.0 (1) Acute renal failure superimposed on stage 3 chronic kidney disease Acute renal failure type: unspecified Qualified Code(s): N17.9 - Acute kidney failure, unspecified; N18.3 - Chronic kidney disease, stage 3 (moderate)
[2019-12-05] MEDS ORDERED: POTASSIUM CHLORIDE 20 MEQ TABCR PO STA (11:58)
--- NOTE | 2019-12-05 15:26 | Discharge Summary ---
Date of Service December 05, 2019 Admission HPI Per Admitting Provider This is a 64-year-old female with past medical history significant for type 2 diabetes; chronic hypoxic respiratory failure, on home oxygen continuous; diabetic polyneuropathy; hyperlipidemia; COPD; hypertension; GERD; history of biliary cirrhosis; chronic kidney disease stage IV, baseline creatinine currently around 2; depression; history of metastatic endometrial cancer, status post surgery, status post robotic-assisted laparoscopic hysterectomy and bilateral salpingo-oophorectomy in 07/11/2014 .On 10/2018 she was admitted. She was found to have bilateral large pleural effusion and ascites, which were drained and cytology came back as metastatic adenocarcinoma. Hem/Onc was started on palliative chemotherapy with paclitaxel and carboplatin. At that time PleurX catheter placed for left pleural effusion, and the PleurX catheter later taken out. Currently, she is on drain for abdominal ascites and she gets drained a couple of times in a week.Last chemo was on april 2019.Chemo was stopped because of low blood count and thrombocytopenia and recently in last week of October, she is in the home hospice with her daughters. She is okay with CPR and meds and shocks, but then don't want to be on artificial ventilation. She is on insulin pump for diabetes. She has history of sleep apnea, but noncompliant with CPAP. . As per daughter, she does not take her medications as supposed to take. Blood sugars are high actually in the morning. In in the evening today, she was sitting on the bed for few seconds and she suddenly seemed to become unresponsive or seemed to be staring and some shaking of the body and daughter think that there is some incontinence of stool. It lasted for about 5 minutes. After she came back, she seemed somewhat confused, but right now in the ER, she is back to her usual self. Hemodynamics are stable, but labs showed blood sugar was low in 40s with dextrose it came up, but she was nauseous and vomiting. There is question of some black vomitus, but Hemoccult was negative. Her hemoglobin is stable at 9.7. Potassium was 2.5. Creatinine was 4.1, baseline is around 2. BUN 74. Bilirubin was 1.7. TSH is 0.9. Currently resting comfortably and hemodynamically stable. Denies any headache. No blurred visions. Has some runny nose, no sore throat. Has some cough and the cough has caused some pain in the ribs. Dry cough. No dysphagia, no odynophagia. Appetite is not that great. Denies any chest pain. No fever, no chills. No shortness of breath. Currently, no abdominal pain. Somewhat constipated. No blood in stools or black stools. Not making much urine. No swelling in the legs, no rash. As per daughter, she is not eating or drinking much since last 2-3 weeks. She ambulates slowly with help of walker. Admission Exam Per Admitting Provider GENERAL: The patient is obese, currently not in acute distress. VITAL SIGNS: Temperature 36.9, pulse 104, respiratory rate 24, blood pressure 114/57, oxygen 93 percent on 4 liters. HEENT: No pallor, no icterus. Extraocular muscles intact. NECK: No JVD, no neck masses, no carotid bruits. CARDIOVASCULAR: S1, S2 heard. Regular rate and rhythm. No murmur, no gallop. RESPIRATORY SYSTEM: Normal AP diameter. No accessory muscle use. No wheezing, no crackles. ABDOMEN: Soft, distended, nontender. Drain seen on the right side with dressing, No drainage seen. CENTRAL NERVOUS SYSTEM: Alert and oriented. Obeys commands. Speech clear. Moves extremities. EXTREMITIES: No edema, no erythema. Principal Diagnosis Adenocarcinoma of endometrium stage 4, Hypoglycemia (low blood sugar level), nausea/vomiting, MONIE on CKD, Hypokalemia (low potassium level) Discharge Exam Physical Exam: elderly obese female, sitting up in bed, in NAD Constitutional: well developed, well nourished, + ill appearing and + morbidly obese Eyes: PERRL, EOMI, conjunctivae normal, anicteric sclerae ENMT: external ear and nose normal, oropharynx normal Neck: trachea midline, no thyromegaly Respiratory: no respiratory distress Auscultation: + diminished lung sounds and + crackles (Minimal crackles at the bases) Cardiovascular: Rate/Rhythm: regular rate and regular rhythm Heart Sounds: no murmur Gastrointestinal (Abdomen): Inspection/Auscultation: + abdomen distended and normal bowel sounds Percussion/Palpation: abdomen soft and + ascites (Moderate ascites); abdomen nontender Musculoskeletal: No acute arthritis in any joints, moves all 4 extremities spontaneously Neurologic: moves all extremities; no focal motor deficits Speech / Cognition: normal speech Motor/Sensory: + tremor Alert awake and oriented x3. Generally weak and lethargic Lymphatic: no cervical or axillary lymphadenopathy Discharge Data Allergies Allergy/AdvReac Type Severity Reaction Status Date / Time Sulfa (Sulfonamide Allergy Intermediate HIVES Verified 11/05/19 15:18 Antibiotics) sulfamethoxazole Allergy Intermediate HIVES Verified 11/05/19 15:18 trimethoprim Allergy Intermediate HIVES Verified 11/05/19 15:18 morphine AdvReac Intermediate nausea Verified 11/05/19 15:18 bupropion AdvReac Mild DELIRIUM Verified 11/05/19 15:18 Cephalosporins AdvReac Mild NAUSEA Verified 11/05/19 15:18 metronidazole AdvReac Mild GI UPSET Verified 11/05/19 15:18 nortriptyline AdvReac Mild DELIRIUM Verified 11/05/19 15:18 Quinolones AdvReac Mild VOMITING Verified 11/05/19 15:18 FROM CIPRO INTAKE Consultations 11/28/19 20:53 ED Decision to Admit Stat 11/28/19 23:27 Consult Case Management - Discharge Planning Routine 11/29/19 08:00 Consult Neurology Routine 12/01/19 08:00 Consult Nephrology Routine Ordered Studies 11/28/19 18:01 CT head/brain wo con Stat 11/28/19 23:27 CT abd pelvis wo con Urgent Hospital Course (1) Adenocarcinoma of endometrium, stage 4: History of adenocarcinoma of the endometrium with abdominal metastasis Chronic ascites requiring periodic drainage of ascites fluid Received chemotherapy recently Current symptoms of nausea vomiting could be secondary to chemotherapy-induced Prognosis remains poor Discussed with the pt and daughter possible discharge home with hospice, pt is excited to go home (2) Hypoglycemia: Noted to have shaking involving the upper extremities Associated fall noted to have very low blood pressure glucose level at lower 40s Possible cause seems to be administration of more insulin and less food Insulin pump discontinued Pharmacy has been consulted for diabetes management No more hypoglycemia Has been tolerating diet Blood sugar has been running high Recommend to monitor blood sugar level at home to prevent hypoglycemic episodes Insulin pump settings also may need to be changed appropriately This is especially appropriate if patient's oral intake is poor (3) Seizure-like activity: Admitted with seizure-like activity which seems to be secondary to hypoglycemia EEG unremarkable Seizures ruled out Appreciate neurology input and recommendation (4) Vomiting: Nausea/vomiting Vomiting of coffee-ground emesis earlier during her admission At that time kept n.p.o. Symptomatic management Protonix drip Still had nausea and vomiting at times but no more coffee-ground emesis Feeling better following drainage of ascetic fluid more than 3 L Questionable coffee-ground emesis Was on Protonix drip by Dr. Dias Hemoglobin dropped to 7.7, doubt due to ongoing bleeding Likely secondary to stress for endometrial cancer with metastasis and recent chemotherapy No more vomiting and no more coffee-ground emesis Received 2 units of packed red cell blood transfusion Hemoglobin went up to more than 10 On my evaluation (12/04/2019) patient has not had any more vomiting, occasional nausea, however very eager to try solid food, agreed to start with toast, patient tolerated well Currently mostly eating broth, clear liquids, toast, reports no issues Hemoglobin remains stable, no vomiting (5) Ascites: Ascites secondary to metastasis Requires drainage 2 times per week Has a peritoneal catheter in place Will aspirate 1 L daily while in the hospital Drain is acetic fluid as directed (6) Acute renal failure superimposed on stage 3 chronic kidney disease: Acute on chronic renal impairment Getting intravenous fluid We will monitor PRP Creatinine has been initially worsening since admission, now downtrending Nephrology consulted, this is most likely patient's new baseline for renal function, patient is also not a candidate for dialysis given her stage 4 adenocarcinoma Likely secondary to intravascular dehydration (7) Depression: Continue current medication (8) CHF (congestive heart failure): No evidence of any significant CHF at thi (9) Hypertension: Blood pressure remains controlled (10) Atrial fibrillation with RVR: She went into atrial fibrillation with a heart rate of more than 140 earlier during this admission EKG confirmed the diagnosis She has not been getting atenolol at that time She was transferred to telemetry unit and received 1 dose of intravenous Lopressor Later on she converted to sinus rhythm We will continue atenolol Reverted to sinus rhythm EKG to confirm that EKG on reported as probable atrial flutter with 41 AV conduction 12/05/2019 pt is in sinus rhythm, on telemetry Total Time Total Time Spent Total Time Spent (In Minutes): 45 Total Time Includes: Examination of the Patient, Discharge Planning, Medication Reconciliation and Communication With Other Providers Discharge Plan Discharge Items Patient Disposition: Hospice - Home Reason For Visit: SEIZURE Discharge Diagnosis: Adenocarcinoma of endometrium stage 4, Hypoglycemia (low blood sugar level), nausea/vomiting, MONIE on CKD, Hypokalemia (low potassium level) Activity: As commented below Activity Comment: as tolerated Non-emergency contact: Primary Care Provider and Commissary Worker Call non-emergency contact if: you have any medication questions and your symptoms worsen Follow-up/Referrals: Hannah Hernandez, DO [Primary Care Provider] - Diet: Carb Consistent or DM2 and Full liquid Diet Comment: be careful about solid food, do not eat solid food if you have nausea Addtl Attending Provider Instructions: You may have to change the settings on your insulin pump, as it is believed that your blood sugar levels were low when you came to the hospital, and may have caused your symptoms. Recommend to check your blood glucose level, to prevent episodes of low blood sugar. If it is low make sure that you have soda or juice or glucose tablets nearby to use. Please start taking potassium supplement daily. Do not eat solid foods or anything that can make you feel more nauseous. Antiemetic medication, promethazine, will be also prescribed for you. Do not take furosemide/Lasix, unless your oral intake improves significantly, discuss this with your primary care physician/hospice nurse or physician. Pending Studies at Discharge: No Stand-Alone Forms: My [facility] Medications and DC Order Prescriptions: New potassium chloride 20 mEq Packet 20 meq PO QAM 14 Days Qty: 14 RF: 0 promethazine 12.5 mg tablet 12.5 mg PO TID PRN (Reason: allergy symptoms) Qty: 14 RF: 0 Continued atorvastatin 80 mg Tablet 80 mg PO DAILY RF: 0 citalopram [Celexa] 40 mg Tablet 40 mg PO DAILY RF: 0 ondansetron HCl 8 mg Tablet 8 mg PO Q8H PRN (Reason: Nausea) RF: 0 insulin aspart U-100 100 unit/mL Solution 1 dose Continuous Subcutaneous Infusion DIRECTED RF: 0 albuterol sulfate [Proventil HFA] 90 mcg/actuation Hfa Aerosol Inhaler 2 puff INHALATION Q4H PRN (Reason: Wheezing) RF: 0 aspirin 81 mg Tablet,Delayed Release (Dr/Ec) 81 mg PO DAILY RF: 0 cyclobenzaprine 5 mg Tablet 5 mg PO BID PRN (Reason: Muscle Spasm) RF: 0 atenolol 100 mg Tablet 100 mg PO QAM RF: 0 pantoprazole [Protonix] 40 mg Tablet,Delayed Release (Dr/Ec) 40 mg PO QAM RF: 0 (DME) Oxygen Home Liters Per Minute RF: 0 trazodone 50 mg Tablet 75 mg PO HS RF: 0 lisinopril 20 mg Tablet 20 mg PO DAILY RF: 0 prochlorperazine maleate [Compazine] 10 mg Tablet 10 mg PO Q6H PRN (Reason: Nausea) RF: 0 docusate sodium [Dulcolax Stool Softener (dss)] 100 mg Capsule 100 mg PO BID RF: 0 haloperidol lactate 2 mg/mL concentrate 1 mg PO DIRECTED PRN (Reason: Agitation) RF: 0 Discontinued furosemide 40 mg tablet 20 mg PO DAILY RF: 0 Discharge Orders: Discharge Order (Routine); Ordered 12/05/19 Ordered By: Justyn Kumar Admission Data Admit Date/Time: 11/28/19 22:12 Attending Provider: Justyn Kumar Admit Provider: Abel Perdue Primary Care Provider: Hannah Hernandez Other Providers: [facility] ; Abel Perdue ; Cj Tillman ; Gayle Kee ; Wiley Hdz Elissa R. ; Kristy Harrington ; Olesya Delcid ; Laura Dias
== END 2019-12-05 18:15 | disposition hospice, home (50) | DRG 638 ==
LOC: ED 17:48 → SUATTDRO 22:12 → 2W 22:12 → 2S 11-30 09:30